=== PATIENT | male | born 1955 | race Caucasian/White ===

== ENCOUNTER 2025-04-02 09:47 | Outpatient (AMB) | payer MEDICARE, SELFPAY ==
--- OUTSIDE RECORDS SUMMARY | 2015-05-22 | XMS_ITS | Encounter Summary ---
Author Organization [facility] Address [address] [place] [address] Phone Care Team Providers Care Allied Health Instructor Name Role Phone Unavailable Primary Care Provider Unavailabl e Reason for Visit * MRI/CAT Scan - Closed Specialty Diagnoses / Procedures Referred By Alexandra del castillo Referred To Contact Procedures MRI Lower Extremity Outside (No Interpretation) Max Wren PA-C [address] [place] [address] Phone: tel: fax: mailto:[email or web address] Referral ID Status Reason Start Date Expiration Date Visits Re quested Visits Authorized [id number] Closed 01/29/2017 01/29/2018 1 1 Encounter Details Date Type Department Care Team (Late st Contact Info) Description 05/22/2015 Hospital Encounter [facility] [address] [place] [address] Max Wren PA-C [address] [place] [address] [email or web address] Social History Tobacco Use Types Packs/Day Years [...] your housing situation today? I have julia robles 03/20/2025 How many times have you move [...] Author No Risk Indicated 03/20/2025 10:40 AM Ele Mason, KATHERINE * [place] Suicide Severity Rating Scale (Screener/Recent Self-Report) Question [...] Care Team (Late st Contact Info) Description 04/16/2025 10:40 AM EDT Telemedicine - audio only [facility] Spine Medicine [address] [place] [address] Nick Quinn MD 22 [facility], 2nd [place] [address] [email or web address] documented as of this encounter Procedures Procedure Name Priority Date/Time Associated Diagnosis Comments MRI LOWER EXTREMITY OUTSIDE (NO INTERPRETATION) Routine 05/22/2015 12:00 AM EDT documented in this encounter Results * MRI Lower Extremity Outside (No Interpretation) (05/22/2015 12:00 AM EDT) Narrative [facility] IMG INTERFACES - 01/29/2017 9:33 AM EDT This study is for PACS storage only and not for interpretation. us Max Wren PA-C IMG OUTSIDE IMAGING W/OUT IN TERPRETATION Final Result [facility] IMG INTERFACES documented in this encounter Visit Diagnoses Not on filedocumented in this encounter Additional Source Comments The information contained in this document represents components of the legal health record. It is not the complete legal health record.[facility]
--- OUTSIDE RECORDS SUMMARY | 2015-10-20 | XMS_ITS | Encounter Summary ---
Author Organization [facility] Address [address] [address] Phone Care Team Providers Care Delivery Mgr Name Role Phone Unavailable Primary Care Provider Unavailabl e Encounter Details Date Type Department Care Team (Late st Contact Info) Description 10/20/2015 Hospital Encounter [facility] [address] [place] [address] Max Wren, PANikolas [address] [place] [address] Social History Tobacco Use Types Packs/Day Years [...] 10:40 AM EDT Ele Boston RN * [place] Suicide Severity Rating Scale (Screener/Recent Self-Report) Question Answer Date of Assessment Author 1. Wish to be (Past 1 Month) No 025 10:40 AM EDT Ele Boston, KATHERINE 2. Non-Specific Active Suici edgard Thoughts (Past 1 Month) No 03/20/2025 10:40 AM EDT Ele Boston, RN 6. Suicidal Behavior (Lifetime) No 10:40 AM EDT Ele Boston, RN documented as of this encounter Plan of Treatment Upcoming Encounters Date Type Department Care Team (Late st Contact Info) Description 04/16/2025 10:40 AM EDT Telemedicine - audio only [facility] Spine Medicine [address] [place] [address] Nick Quinn MD 22 [facility], 2nd [place] [address] [email or web address] documented as of this encounter Procedures Procedure Name Priority Date/Time Associated Diagnosis Comments XR LOWER EXTREMITY OUTSIDE (NO INTERPRETATION) Routine 10/20/2015 12:00 AM EDT documented in this encounter Results * XR Lower Extremity Outside (No Interpretation) (10/20/2015 12:00 AM EDT) Narrative [facility] INTERFACES - 01/29/2017 9:28 AM EDT This study is for PACS storage only and not for interpretation. us Max Wren PA-C IMG OUTSIDE IMAGING W/OUT IN TERPRETATION Final Result [facility] INTERFACES documented in this encounter Visit Diagnoses Not on filedocumented in this encounter Additional Source Comments The information contained in this document represents components of the legal health record. It is not the complete legal health record.[facility]
--- OUTSIDE RECORDS SUMMARY | 2025-03-10 09:10 | XMS_ITS ---
Author Organization [facility] Address [address] [place] [address] Care Team Providers Care Historical Site Guide Name Role Phone Lazaro Amor Unavailable [phone] Lazaro Amor Do Unavailable Unavailable REASON FOR VISIT F/U MRI LEFT KNEE JPB/RK Encounters Encounter Location Date Provider Diagnosis [facility] [address] [place] [address] 03/10/2025 Lazaro Amor Plan Of Treatment No Information Progress Notes * REYESELISADINORAHDOB:1955 (69 yo M)Acc No.[id number]:03/10/2025 Patient: TIANNA BUI Provider: Ananya Amor DO :1955 A ge:69 Y S ex:Male Date:03/10/2025 Address:[address] [place], [place] [id number] Subjective: * Chief Complaints: * 1 . F/U MRI LEFT KNEE JPB/RK. * Medical History: Objective: * Vitals: Assessment: Plan: * Treatment: * Billing Information: * Visit Code: * Procedure Codes: * Electronic signature of Lazaro Amor DO on 04/02/2025 at 10:33 AM EDT Sign off status: Pending * Provider: Ananay Amor DO Date: 03/10/2025 Generated for Chinai ng/Fadarong/eTransmitting on: 04/02/2025 10:33 AM EDT
--- OUTSIDE RECORDS SUMMARY | 2025-03-25 14:00 | XMS_ITS | Encounter Summary ---
Author Organization [facility] Address [address] [facility] [address] [place] [address] Phone Care Team Providers Care Electric Solderer Name Role Phone Sasha Mejia Primary Care Provider [phone] Encounter Details Date Type Department Care Team (Latest Contact Info) Description 03/25/2025 2:00 PM EDT Procedure visit [facility] Spine Medicine [address] [address] Annelise Quinn MD [address] [facility], 2nd [place] [address] [email or web address] Lumbar radiculitis (Primary Dx) Social History Tobacco [...] 10:40 AM EDT Telemedicine - audio only [facility] Spine Medicine [address] [place] [address] Annelise Quinn MD [address] [place] [address], 2nd [place] [address] [email or web address] documented as of this encounter Visit Diagnoses [...] mL documented in this encounter Care Teams Electric Solderer Relationship Specialty Start Date End Date Sasha Mejia PA [address] [place] [address] PCP - General Physician Data Designer 03/20/25 documented as of this encounter Additional Source Comments The information contained in this document represents components of the legal health record. It is not the complete legal health record.[facility]
[2025-04-02 10:11] VITALS: BMI 34.0
--- NOTE | 2025-04-02 10:11 | HO.SPINEOV ---
Vital Signs 04/02/25 10:11 Height 5 ft 9 in Weight 230 lb BMI 34.0 Intake Visit Reasons: LBP Intake Note: Mr. Hall is here today c/o low back pain making it difficult to walk. Cable Stretcher And Tester Required: No Allergies codeine Allergy (Severe, Verified 04/02/25 10:12) Drowsy Physical Exam Vital Signs: BMI result Body Mass Index 34.0 Assessment & Plan Assessment & Plan (1) Lumbar disc herniation: Code(s): M51.26 - Other intervertebral disc displacement, lumbar region Category: Medical Plan Dear Dr Quinn, Thank you for referring Mr Hall to our office today. He is a very nice 69-year-old gentleman who reports history of back issues on and off over the years, who over the last 4 weeks has had a severe left leg pain with weakness of his left leg. The pain started after he was tearing apart some board done at [employer]. Since that time he has basically been incapacitated. As I understand it you attempted an injection at the L4-5 area after an MRI showed disc herniation and as he describes it it, sounds like it had to be aborted secondary to anatomical issues. He was on steroids, anti-inflammatories as well as oxycodone and muscle relaxers. The only thing that really helps him his oxycodone. He is here today to see if there is any surgical intervention we can do to help him. PMH: He is a diabetic but his A1c is always around 6, history of a torn meniscus, remote history of encephalitis, low testosterone, rosacea, he has never had surgery. Denies any history of heart attacks, strokes, high blood pressure, renal or liver disease, heart attacks, bleeding disorders, blood clots, cancer or infection Social hx: Does not smoke, drink use any recreational drugs Medications: Trulicity, metformin, verapamil, Zetia, Flomax, tadalafil and testosterone supplement Allergies: None Physical exam: Awake alert oriented, very uncomfortable, has a hard time standing up walking, has an antalgic gait, he is using a walker because he can not support his weight. Straight leg raise positive at 15 degrees. Dorsiflexion weakness rated as 4/5, rest of his strength is full. Reflexes diminished at the patella and the Achilles. Imaging review: Lumbar MRI done at [facility] just a few weeks ago shows multilevel degenerative disc disease but there is a large herniated disc fragment at L4-5 on the left which is tracked up behind the vertebral body and to some degree near the foramen. Impression: 69-year-old male with an acute herniated disc going on now for 4 weeks who is presenting with severe pain, inability to ambulate, foot weakness. He has a large disc fragment at L4-5 on the left. Case reviewed with Dr. Comer. Because of the weakness and the inability to walk, we are going to book him for urgent left L4-5 microdiskectomy. We have tentatively set a surgical date for April 15. He understands the success rate is 90%. We also talked about lifting restrictions afterwards to avoid reherniation. He will stop his Trulicity and his aspirin 1 week before surgery. The patient was given risk and benefits of surgery including but not limited to infection, hematoma, nerve injury, durotomy, weakness, bowel/bladder injury, persistent pain,[ ]. We also discussed the option to continue with conservative treatment and patient wishes to proceed with surgery. All questions were answered to the best of our ability. If there is anything about this patients medical history that we have overlooked or concerns you have about us proceeding with surgery we would appreciate any input you can offer Thank you for allowing us to care for your patient. The total time spent with this visit with this patient was[] minutes reviewing history, physical exam, [] imaging review, and implementation of treatment plan or further diagnostic testing Kal Comer MD,PhD [facility] Coding Level of Care Code New Pt Level 4 (05024) Diagnoses Lumbar disc herniation M51.26
--- OUTSIDE RECORDS SUMMARY | 2025-04-02 10:32 | XMS_ITS | Encounter Summary ---
Author Organization [facility] Address [address] [place] [address] Phone Care Team Providers Care Data Reduction Technician Name Role Phone Yissel Wells Primary Care Provider Sasha Mejia Primary Care Provider [phone] Reason for Visit * Reason Onset Date Comments Establish Care 03/19/2025 Encounter Details Date Type Department Care Team (Late st Contact Info) Description 03/19/2025 Telephone [employer] [facility] Spine Medicine [address] [place] [address] Yissel Wells PA [address] [place] [address] [email or web address] Establish Care Social History Tobacco Use Types Packs/Day Years [...] 03/20/2025 10:40 AM Ele Mason, KATHERINE * [place] Suicide Severity Rating Scale (Screener/Recent Self-Report) Question Answer Date of Assessment Author 1. Wish to be (Past 1 Month) No 025 10:40 AM Ele Mason, RN 2. Non-Specific Active Suici edgard Thoughts (Past 1 Month) No 03/20/2025 10:40 AM Ele Mason, RN 6. Suicidal Behavior (Lifetime) No 10:40 AM EDT Ele Boston RN documented as of this encounter Progress Notes * MitchellKal adamson - 03/19/2025 3:43 PM EDT Pt called in to confirm receipt of the faxed referral Central Support Burner Machine Operator (Please do not reply to this user; this inbox is not monitored.) Thank you. * MitchellKal - 03/19/2025 9:49 AM EDT Pt called in, said a referral was faxed from [employer] this morning. Please contact and advise claudia appt. Central Support Burner Machine Operator (Please do not reply to this user; this inbox is not monitored.) Thank you. documented in this encounter Plan of Treatment Upcoming Encounters Date Type Department Care Team (Late st Contact Info) Description 04/16/2025 10:40 AM EDT Telemedicine - audio only [facility] Spine Medicine [address] [place] [address] Nick Quinn MD [address] [place] [address], [address] [place] [address] [email or web address] documented as of this encounter Visit Diagnoses Not on filedocumented in this encounter Care Teams Data Reduction Technician Relationship Specialty Start Date End Date Yissel Wells PA [address] [place] [address] [email or web address] PCP - General Physician Commissioned Police Officer 10/26/22 03/19/25 Sasha Mejia PA [address] [place] [id number] PCP - General Physician Commissioned Police Officer 03/20/25 documented as of this encounter Additional Source Comments The information contained in this document represents components of the legal health record. It is not the complete legal health record.[facility]
--- OUTSIDE RECORDS SUMMARY | 2025-04-02 10:32 | XMS_ITS | Encounter Summary ---
Author Organization [facility] Address [address] [place] [address] Phone Care Team Providers Care Chain Testing Machine Operator Name Role Phone Segundo Albright MD Primary Care Provider Yissel Wells Primary Care Provider [phone] Sasha Mejia Primary Care Provider [phone] Reason for Referral * Physical Therapy (Routine) - Closed Specialty Diagnoses / Procedures Referred By Alexandra del castillo Referred To Contact Physical Therapy Diagnoses Encounter for rehabilitation Low Back Pain Procedures Evaluate & Treat Karl Fowler DO Phone: tel: fax: [email or web address] [address] [place] [address] Phone: tel: Referral ID Status Reason Start Date Expiration Date Visits Re quested Visits Authorized [id number] Closed 08/14/2018 08/04/2019 99 99 Encounter Details Date Type Department Care Team (Latest Contact Info) Description 08/14/2018 Transcribe Orders [facility] [address] [place] [address] Karl Fowler DO [address] [place] [address] [email or web address] Encounter for rehabilitation (Primary Dx) Social History Tobacco Use Types Packs/Day Years Used Date Smoking Tobacco: Never Assessed Sex and Gender Information Value Date Recorded Sex Assigned at Not on file Legal Sex Male 11:19 AM EDT Gender Identity Not on file Sexual Orientation Not on file documented as of this encounter Plan of Treatment Upcoming Encounters Date Type Department Care Team (Late st Contact Info) Description 04/16/2025 10:40 AM EDT Telemedicine - audio only [facility] Spine Medicine [address] [place] [address] Nick Quinn MD [address] [facility], 2nd [place] [address] [email or web address] documented as of this encounter Procedures Procedure Name Priority Date/Time Associated Diagnosis Comments AMB REFERRAL TO [facility] Routine 09/12/2018 10:08 AM EST Encounter for rehabilitation documented in this encounter Results * Ambulatory referral to [facility] Physical Therapy (09/12/2018 10:08 AM EST) us Karl Fowler DO AMB [facility] REFERRALS Final Resu lt documented in this encounter Visit Diagnoses Diagnosis Encounter for rehabilitation- Primary documented in this encounter Care Teams Chain Testing Machine Operator Relationship Specialty Start Date End Date Segundo Albright MD [address] [place] [address] [email or web address] PCP - General 06/11/17 10/25/22 Yissel Wells PA [address] [place] [address] [email or web address] PCP - General Physician Underground Miner 10/26/22 03/19/25 Sasha Mejia PA [address] [place] [address] PCP - General Physician Underground Miner 03/20/25 documented as of this encounter Additional Source Comments The information contained in this document represents components of the legal health record. It is not the complete legal health record.[facility]
--- OUTSIDE RECORDS SUMMARY | 2025-04-02 10:32 | XMS_ITS | Encounter Summary ---
Author Organization [facility] Address [address] [place] [address] Phone Care Team Providers Care Electronics Production Supervisor Name Role Phone Segundo Albright MD Primary Care Provider Yissel Wells Primary Care Provider [phone] Sasha Mejia Primary Care Provider [phone] Reason for Referral * MRI/CAT Scan - Closed Specialty Diagnoses / Procedures Referred By Contac t Referred To Contact Radiology Diagnoses Lumbar radiculopathy Procedures MRI Lumbar Spine Karl Fowler DO Phone: tel: fax: [email or web address] Referral ID Status Reason Start Date Expiration Date Visits Re quested Visits Authorized [id number] Closed 08/18/2020 10/17/2020 1 1 Encounter Details Date Type Department Care Team (Latest Contact Info) Description 08/18/2020 Ancillary Orders Virtual Department [address] [place] [address] Karl Fowler DO [address] [place] [address] [email or web address] Lumbar radiculopathy Social History Tobacco Use Types Packs/Day Years [...] 10:40 AM EDT Telemedicine - audio only [facility] Spine Medicine [address] [place] [address] Nick Quinn MD [address] [facility], [address]nd [place] [address] [email or web address] documented as of this encounter Results * MRI LUMBAR SPINE (NEURO) WITH AND WITHOUT CONTRAST (08/25/2020 12:07 PM EST) Anatomical Region Laterality Modality L-spine Magnetic Resonan ce 08/25/2020 12:3 8 PM EST Impressions 08/25/2020 1:46 PM EST 1. Stable tiny right paramedian radial annular tear at T12-L1 area 2. Stable or diminishing soft tissue structure in the peripheral left L2-3 exit foramen, possibly an osteophyte and vein rather than disc fragment. If clinically essential, CT may be useful for further evaluation to assess any bony component. 3. Slight increase in size of right-eccentric disc bulge at L3-4 but without focal protrusion or root compression. 4. New small right proximal foraminal focal disc protrusion at L5-S1 without root compression. POS [id number] Narrative 08/25/2020 1:46 PM EST TECHNIQUE: 1.5 Janine scanner. Imaging without and with IV contrast. Multiple comparisons, most recently 05/29/2017. FINDINGS: A few mm of retrolisthesis of L1 on L2 is unchanged. The other vertebral bodies are well-aligned. No worrisome marrow abnormalities. Normal conus position and appearance. T11-12: No disc bulge, protrusion or stenosis. T12-L1: Tiny right paramedian radial annular tear unchanged. No new disc protrusion. No stenosis. L1-2: No significant disc bulge or protrusion nor stenosis. L2-3: The previously noted left lateral foraminal masslike structure is still present but slightly smaller, if changed at all. It has developed slightly increased signal on both T1 and T2. The medial extent of it appears to enhance very slightly on the T1 fat saturation axial sequence (series 10, image 10). I suspect this is a combination of endplate osteophyte and vessel but it could still be partially a disc fragment. In either event there does not appear to be a worrisome soft tissue mass and if anything the degree of mass effect on the peripheral nerve root is decreasing. No other disc protrusion nor stenosis at this level. L3-4: Slight increase in broad right-eccentric disc bulge since 2017 but no focal disc protrusion. Stable mild central and moderate bilateral foraminal stenosis. L4-5: The disc is narrowed slightly since 2017 but with minimal broad bulge and no focal protrusion nor significant stenosis. L5-S1: A small right proximal foraminal focal disc protrusion has developed but it does not obviously produce direct root compression. No significant stenosis. Procedure Note Aaron Neville MD - 08/25/2020 TECHNIQUE: 1.5 Janine scanner. Imaging without and with IV contrast. Multiple comparisons, most recently 05/29/2017. FINDINGS: A few mm of retrolisthesis of L1 on L2 is unchanged. The other vertebralbodies are well-aligned. No worrisome marrow abnormalities. Normal conus position and appearance. T11-12: No disc bulge, protrusion or stenosis. T12-L1: Tiny right paramedian radial annular tear unchanged. No new discprotrusion. No stenosis. L1-2: No significant disc bulge or protrusion nor stenosis. L2-3: The previously noted left lateral foraminal masslike structure isstill present but slightly smaller, if changed at all. It has developedslightly increased signal on both T1 and T2. The medial extent of itappears to enhance very slightly on the T1 fat saturation axial sequence(series 10, image 10). I suspect this is a combination of endplateosteophyte and vessel but it could still be partially a disc fragment. Ineither event there does not appear to be a worrisome soft tissue mass andif anything the degree of mass effect on the peripheral nerve root isdecreasing. No other disc protrusion nor stenosis at this level. L3-4: Slight increase in broad right-eccentric disc bulge since 2017 butno focal disc protrusion. Stable mild central and moderate bilateralforaminal stenosis. L4-5: The disc is narrowed slightly since 2017 but with minimal broadbulge and no focal protrusion nor significant stenosis. L5-S1: A small right proximal foraminal focal disc protrusion hasdeveloped but it does not obviously produce direct root compression. Nosignificant stenosis. IMPRESSION: 1. Stable tiny right paramedian radial annular tear at T12-L1 area 2. Stable or diminishing soft tissue structure in the peripheral left L2-3exit foramen, possibly an osteophyte and vein rather than disc fragment.If clinically essential, CT may be useful for further evaluation to assessany bony component. 3. Slight increase in size of right-eccentric disc bulge at L3-4 butwithout focal protrusion or root compression. 4. New small right proximal foraminal focal disc protrusion at L5-I2gftiplc root compression. POS [id number] Karl Fowler DO IMG MR XSPECIALTY Final Resu lt documented in this encounter Visit Diagnoses Diagnosis Lumbar radiculopathy Thoracic or lumbosacral neuritis or radiculitis, unspecified Lumbar radiculopathy Thoracic or lumbosacral neuritis or radiculitis, unspecified documented in this encounter Care Teams Electronics Production Supervisor Relationship Specialty Start Date End Date Segundo Albright MD [address] [place] [address] [email or web address] [email or web address] - General 06/11/17 10/25/22 Yissel Wells PA [address] [place] [address] [email or web address] PCP - General Physician Rubber Stamp Die Inspector 10/26/22 03/19/25 Sasha Mejia PA [address] [place] [address] PCP - General Physician Rubber Stamp Die Inspector 03/20/25 documented as of this encounter Additional Source Comments The information contained in this document represents components of the legal health record. It is not the complete legal health record.[facility]
--- OUTSIDE RECORDS SUMMARY | 2025-04-02 10:32 | XMS_ITS | Encounter Summary ---
Author Organization Located Within [facility] Address [address] [place] [address] Phone Care Team Providers Care Geriatric Nurse Assistant Name Role Phone Segundo Albright MD Primary Care Provider [phone] Yissel Wells Primary Care Provider Sasha Mejia Primary Care Provider [phone] Encounter Details Date Type Department Care Team (Latest Contact Info) Description 09/06/2021 Transcribe Orders [facility] 29 [place] [address] Yissel Wells PA [address] [place] [address] [email or web address] Type 2 diabetes mellitus without complication, unspecified whether rn long term care insulin use (Primary Dx); Elevated liver function tests Social History Tobacco Use Types Packs/Day Years [...] 10:40 AM EDT Telemedicine - audio only [facility] Spine Medicine [address] [place] [address] Nick Quinn MD 22 [facility], 2nd [place] [address] documented as of this encounter Results * (ABNORMAL) Lipid panel (09/07/2021 10:04 AM EST) HDL 43 mg/dL [facility] Comment: Interpretation <40 mg/dL: Low HDL cholesterol (major risk factor for CHD) Greater than or equal to 60 mg/dL: High HDL cholesterol ( negative risk factor for CHD) HDL - cholesterol is affected by a number of factors, e.g. smoking, excerise, hormones, sex and age. CHOLESTEROL 245(H) 0 - 240 mg/dL [facility] TRIGLYCERIDES 230(H) 30 - 160 mg/dL [facility] LDL 156(H) 50 - 129 mg/dL [facility] Comment: LDL levels in terms of risk for coronary heart disease: <100 mg/dL: Optimal 100-129 mg/dL: Near or above optimal 130-159 mg/dL: Borderline high 160-189 mg/dL: High >190 mg/dL: Very High CARDIAC RISK RATIO 5.7(H) 3.4 - 5.0 C [facility] Blood 09/07/2021 10:0 4 AM EST 09/07/2021 10:12 AM EST Yissel CRAIG LAB BLOOD ORDERABLES Final R [facility] Performing Organization Address City/[facility] Co de Phone Number [address] [address] * (ABNORMAL) Hemoglobin A1c (09/07/2021 10:04 AM EST) HEMOGLOBIN A1C 6.0(H) 4.3 - 5.8 % [facility] Blood 09/07/2021 10:0 4 AM EST 09/07/2021 10:13 AM EST Yissel CRAIG LAB BLOOD ORDERABLES Final R esult Performing Organization Address City/[facility]/ZIP Co de Phone Number [address] [address] * (ABNORMAL) Comprehensive metabolic panel (09/07/2021 10:04 AM EST) SODIUM 135 133 - 146 mmol/L [facility] POTASSIUM 4.5 3.3 - 5.1 mmol/L [facility] CHLORIDE 101 96 - 108 mmol/L [facility] CO2 21 21 - 35 mmol/L [facility] BUN 16 6 - 19 mg/dL [facility] CREATININE 1.00 0.5 - 1.5 mg/dL [facility] GLUCOSE 123(H) 70 - 99 mg/dL [facility] ALBUMIN 4.7 3.9 - 4.8 g/dL [facility] TOTAL PROTEIN 7.0 6.5 - 8.0 g/dL [facility] CALCIUM 9.6 8.4 - 10.3 mg/dL [facility] ALKALINE PHOSPHATASE 57 39 - 117 U/L [facility] TOTAL BILIRUBIN 0.5 0.0 - 1.2 mg/dL [facility] AST 28 0 - 37 U/L [facility] ALT 25 0 - 40 U/L [facility] GLOBULIN 2.3 1 - 4.8 g/dL [facility] EGFR 85 >59 mL/min/1.7 3m2 [facility] Comment:Estimated glomerular filtration rate calculated using the CKD-EPI refit equation. ANION GAP 18 10 - 20 mmol/L [facility] Blood 09/07/2021 10:0 4 AM EST 09/07/2021 10:12 AM EST us Yissel CRAIG LAB BLOOD ORDERABLES Final R esult [facility] [address] [place] [address] * (ABNORMAL) Microalbumin/creatinine ratio, random urine (09/07/2021 10:04 AM EST) URINE MICROALBUMIN 14.2(H) 0 - 2.3 mg/dL [facility] URINE CREATININE 515 mg/dL AUTOMATIC I THREADING MACHINE [facility] MICROALB/CRE RATIO 27.6(H) 0 - 20 mg/g Cre [facility] Urine (Urine) 09/07/2021 10: 04 AM EST 09/07/2021 10:17 AM EST Yissel CRAIG URINE ORDERABLES Final Resul t Performing Organization Address [facility]/ZIP Co de Phone Number [facility] [address] [place] [address] * PSA, free and total (09/07/2021 10:04 AM EST) PSA, TOTAL 0.60 <=4.5 ng/mL [facility] FREE PSA 0.3 ng/mL [facility] LAB MED/[facility] FREE/TOT PSA RATIO SEE NOTE ratio [facility] Comment: (NOTE) Ratio not calculated because clinical usefulness is not defined except in range of total PSA 4.0-10.0 ng/mL. ADDITIONAL INFORMATION The testing method is an electrochemiluminescence assay manufactured by [employer] and performed on the Modular or Danny system. Values obtained with different assay methods or kits may be different and cannot be used interchangeably. Test results cannot be interpreted as absolute evidence for the presence or absence of malignant disease. Blood 09/07/2021 10:0 4 AM EST 09/07/2021 10:12 AM EST Yissel CRAIG LAB BLOOD ORDERABLES Final R esult Performing Organization Address City/[facility]/ZIP Co de Phone Number [facility] LAB MED/PATH [facility] [address] [place] [address] * CBC (09/07/2021 10:04 AM EST) WBC 6.99 4.00 - 11.00 K/uL [facility] RBC 5.00 3.90 - 5.69 M/uL [facility] HGB 15.5 12.4 - 17.3 g/dL [facility] HCT 43.7 37.0 - 51.0 % [facility] PLT 224 140 - 430 K/uL [facility] MCV 87.4 78.0 - 97.0 fL [facility] MCH 31.0 25.0 - 33.0 pg [facility] MCHC 35.5 32.0 - 36.0 g/dL [facility] RDW 12.9 11.0 - 15.0 % [facility] MPV 10.2 8.4 - 12.8 fl [facility] NRBC 0.00 0 /100 WBCs [facility] ABSOLUTE NRBC 0.00 0 K/uL [facility] Blood 09/07/2021 10:0 4 AM EST 09/07/2021 10:12 AM EST us Yissel CRAIG LAB BLOOD ORDERABLES Final R esult Performing Organization Address City/State/[place] Co de Phone Number [facility] [address] [place] [address] documented in this encounter Visit Diagnoses Diagnosis Type 2 diabetes mellitus without complication, unspecified whether rn long term care insulin use- Primary Elevated liver function tests Other abnormal blood chemistry documented in this encounter Care Teams Geriatric Nurse Assistant Relationship Specialty Start Date End Date Segundo Albright MD [address] [place] [phone] [email or web address] PCP - General 06/11/17 10/25/22 Yissel Wells PA [address] [place] [phone] [email or web address] PCP - General Physician Water Control Station Engineer 10/26/22 03/19/25 Sasha Mejia PA [address] [place] [id number] PCP - General Physician Water Control Station Engineer 03/20/25 documented as of this encounter Additional Source Comments The information contained in this document represents components of the legal health record. It is not the complete legal health record.Located Within [facility]
--- OUTSIDE RECORDS SUMMARY | 2025-04-02 10:32 | XMS_ITS | Encounter Summary ---
Author Organization [facility] Address [address] [place] [address] Phone Care Team Providers Care Customer Service Technician Name Role Phone Yissel Wells Primary Care Provider Sasha Mejia Primary Care Provider [phone] Encounter Details Date Type Department Care Team (Late st Contact Info) Description 01/14/2025 Transcribe Orders [facility] Specimen Processing [address] [place] [address] Elizabeth Roblero MD [address] [place] [address] Impetigo (Primary Dx) Social History Tobacco Use Types Packs/Day Years Used Date Smoking Tobacco: Never Smokeless Tobacco: Never Alcohol Use Standard Drinks/Week Comments Yes 0 (1 standard drink = 0.6 oz pur e alcohol) 1 months Education Answer Date Recorded Are you interested in more education? Not on sydnie e 11/30/2022 Are you concerned about learning? Not on file 11/30/2022 No 11/30/2022 No 11/30/2022 Digital Access Answer Date Recorded No 12/31/2022 No 12/31/2022 Reliable internet access at home? Not on file 12/31/2022 Device with a working camera? Not on file Sex and Gender Information Value Date Recorded Sex Assigned at Not on file Legal Sex Male 11:19 AM EDT Gender Identity Not on file Sexual Orientation Not on file documented as of this encounter Plan of Treatment Upcoming Encounters Date Type Department Care Team (Late st Contact Info) Description 04/16/2025 10:40 AM EDT Telemedicine - audio only [facility] Spine Medicine [address] [place] [address] Nick Quinn MD 22 [facility], 2nd [place] [address] [email or web address] documented as of this encounter Results * Wound culture/smear (01/14/2025 3:52 PM EDT) Special Requests None 01/14/2025 3:52 PM EDT [facility] GRAM STAIN NO ORGANISMS SEEN 01/15/2025 8:14 AM EDT [facility] Wound Culture/Smear NO GROWTH 48HRS 01/16/2025 10:44 AM EDT [facility] Other (Nasal) 01/14/2025 3:5 2 PM EDT 01/14/2025 3:53 PM EDT Comment:LEFT NASAL ALAR GROO VE us Elizabeth Roblero MD MICROBIOLOGY - GENERAL SHAUNNA FERNANDEZ Final Result [facility] [address] [place] [address] documented in this encounter Visit Diagnoses Diagnosis Impetigo- Primary documented in this encounter Care Teams Customer Service Technician Relationship Specialty Start Date End Date Yissel Wells PA [address] [place] [address] [email or web address] PCP - General Physician Reception Specialist 10/26/22 03/19/25 Sasha Mejia PA [address] [place] [address] PCP - General Physician Reception Specialist 03/20/25 documented as of this encounter Additional Source Comments The information contained in this document represents components of the legal health record. It is not the complete legal health record.[facility]
--- OUTSIDE RECORDS SUMMARY | 2025-04-02 10:32 | XMS_ITS | Encounter Summary ---
Author Organization [facility] Address [address] [place] [address] Phone Care Team Providers Care Belt Maker Name Role Phone Segundo Albright MD Primary Care Provider Yissel Wells Primary Care Provider [phone] Sasha Mejia Primary Care Provider Encounter Details Date Type Department Care Team (Late st Contact Info) Description 03/14/2018 Transcribe Orders [facility] [address] [place] [address] Esme Lopez NP [address] [place] [address] [email or web address] Diabetes mellitus with no complication (Primary Dx) Social History Tobacco Use Types [...] 10:40 AM EDT Telemedicine - audio only [facility] [address] [place] [address] Nick Quinn MD 22 [facility], 2nd [place] [address] documented as of this encounter Visit Diagnoses Diagnosis Diabetes mellitus with no complication- Primary Type II or unspecified type diabetes mellitus without mention of complication, not stated as uncontrolled documented in this encounter Care Teams Belt Maker Relationship Specialty Start Date End Date Segundo Albright MD [address] [place] [address] [email or web address] PCP - General 06/11/17 10/25/22 Yissel Wells PA [address] [place] [phone] [email or web address] PCP - General Physician Director Business Management 10/26/22 03/19/25 Sasha Mejia PA [address] [place] [phone] PCP - General Physician Director Business Management 03/20/25 documented as of this encounter Additional Source Comments The information contained in this document represents components of the legal health record. It is not the complete legal health record.[facility]
--- OUTSIDE RECORDS SUMMARY | 2025-04-02 10:32 | XMS_ITS | Encounter Summary ---
Author Organization [facility] Address [address] [place] [address] Phone Care Team Providers Care Family Program Specialist Name Role Phone Segundo Albright MD Primary Care Provider Yissel Wells Primary Care Provider Sasha Mejia Primary Care Provider Encounter Details Date Type Department Care Team (Late st Contact Info) Description 09/06/2021 Transcribe Orders [facility] LABORATORY [address] [place] [address] Segundo Albright MD [address] [place] [phone] [email or web address] Social History Tobacco Use Types Packs/Day Years [...] 10:40 AM EDT Telemedicine - audio only [facility] Spine Medicine [address] [place] [address] Nick Quinn MD 22 [facility], 2nd [place] [address] documented as of this encounter Visit Diagnoses Not on filedocumented in this encounter Care Teams Family Program Specialist Relationship Specialty Start Date End Date Segundo Albright MD [address] [place] [address] [email or web address] PCP - General 06/11/17 10/25/22 Yissel Wells PA [address] [place] [phone] [email or web address] PCP - General Physician Apartment Rental Clerk 10/26/22 03/19/25 Sasha Mejia PA [address] [place] [id number] PCP - General Physician Apartment Rental Clerk 03/20/25 documented as of this encounter Additional Source Comments The information contained in this document represents components of the legal health record. It is not the complete legal health record.[facility]
--- OUTSIDE RECORDS SUMMARY | 2025-04-02 10:32 | XMS_ITS | Encounter Summary ---
Author Organization [facility] Address [address] [place] [address] [place] [address] Phone Care Team Providers Care Machine Heel Sprayer Name Role Phone Segundo Albright MD Primary Care Provider Yissel Wells Primary Care Provider [phone] Sasha Mejia Primary Care Provider Encounter Details Date Type Department Care Team (Latest Contact Info) Description 09/06/2021 Transcribe Orders [facility] LABORATORY [address] [place] [address] Vanna Alvarado, PA-C [address] [place] [address], [address] [place] [address] [email or web address] Testicular hypofunction (Primary Dx) Social History Tobacco Use Types [...] AM EDT Telemedicine - audio only [facility] Spine Medicine [address] [place] [address] Nick Quinn MD 22 [facility], 2nd [place] [address] documented as of this encounter Results * (ABNORMAL) Testosterone, total and free (09/07/2021 10:04 AM EST) FREE TESTOSTERONE 45.8(H) 3.67 - 13.9 ng/dL [facility] Comment: (NOTE) ADDITIONAL INFORMATION Testing performed by [facility]. This test was developed and its performance characteristics determined by [facility] in a manner consistent with CLIA requirements. This test has not been cleared or approved by the U.S. Food and Drug Administration. TESTOSTERONE, TOTAL 1,090(H) 240 - 950 ng/dL [facility] Comment: (NOTE) ADDITIONAL INFORMATION Testing performed by Liquid Chromatography-Tandem Mass Spectrometry (LC-MS/MS). This test was developed and its performance characteristics determined by [facility] in a manner consistent with CLIA requirements. This test has not been cleared or approved by the U.S. Food and Drug Administration. Blood 09/07/2021 10:0 4 AM EST 09/07/2021 10:12 AM EST us Vanna Alvarado PA-C LAB BLOOD ORDERABLES Final Res ult [facility] [address] [place] [address] documented in this encounter Visit Diagnoses Diagnosis Testicular hypofunction- Primary Other testicular hypofunction documented in this encounter Care Teams Machine Heel Sprayer Relationship Specialty Start Date End Date Segundo Albright MD [address] [place] [address] [email or web address] PCP - General 06/11/17 10/25/22 Yissel Wells PA [address] [place] [address] [email or web address] PCP - General Physician Milk Pickup Truck Driver 10/26/22 03/19/25 Sasha Mejia PA [address] [place] [address] PCP - General Physician Milk Pickup Truck Driver 03/20/25 documented as of this encounter Additional Source Comments The information contained in this document represents components of the legal health record. It is not the complete legal health record.[facility]
--- OUTSIDE RECORDS SUMMARY | 2025-04-02 10:32 | XMS_ITS | Encounter Summary ---
Author Organization [facility] Address [address] [place] [address] Phone Care Team Providers Care Auditor Medical Claims Name Role Phone Segundo Albright MD Primary Care Provider Yissel Wells Primary Care Provider [phone] Sasha Mejia Primary Care Provider [phone] Encounter Details Date Type Department Care Team (Late st Contact Info) Description 08/18/2020 Procedure Pass [address] [place] [address] Social History Tobacco Use Types Packs/Day Years [...] 10:40 AM EDT Telemedicine - audio only [facility] Medical [facility] Spine Medicine [address] [place] [address] Nick Quinn MD 22 [facility], 2nd [place] [address] [email or web address] documented as of this encounter Visit Diagnoses Not on filedocumented in this encounter Care Teams Auditor Medical Claims Relationship Specialty Start Date End Date Segundo Albright MD [address] [place] [phone] [email or web address] PCP - General 06/11/17 10/25/22 Yissel Wells PA [address] [place] [phone] [email or web address] PCP - General Physician Broodmare Foreman 10/26/22 03/19/25 Sasha Mejia PA [address] [place] [phone] PCP - General Physician Broodmare Foreman 03/20/25 documented as of this encounter Additional Source Comments The information contained in this document represents components of the legal health record. It is not the complete legal health record.[facility]
--- OUTSIDE RECORDS SUMMARY | 2025-04-02 10:33 | XMS_ITS | Encounter Summary ---
Author Organization [facility] Address [address] [facility] [address] [place] [address] Phone Care Team Providers Care Vasc Tech Name Role Phone Segundo Albright MD Primary Care Provider Yissel Wells Primary Care Provider Sasha Mejia Primary Care Provider Encounter Details Date Type Department Care Team (Latest Contact Info) Description 04/08/2019 Transcribe Orders [facility] LABORATORY [address] [place] [address] Segundo Albright MD [address] [place] [phone] [email or web address] Diabetes mellitus with no complication (Primary Dx) [...] 10:40 AM EDT Telemedicine - audio only [facility] Spine Medicine [address] [place] [address] Nick Quinn MD 22 [facility], 2nd [place] [address] documented as of this encounter Results * Lipid panel (04/08/2019 8:44 AM EDT) HDL 50 mg/dL [facility] Comment: Interpretation <40 mg/dL: Low HDL cholesterol (major risk factor for CHD) Greater than or equal to 60 mg/dL: High HDL cholesterol ( negative risk factor for CHD) HDL - cholesterol is affected by a number of factors, e.g. smoking, excerise, hormones, sex and age. CHOLESTEROL 192 0 - 240 mg/dL [facility] TRIGLYCERIDES 153 30 - 160 mg/dL [facility] LDL 111 50 - 129 mg/dL [facility] Comment: LDL levels in terms of risk for coronary heart disease: <100 mg/dL: Optimal 100-129 mg/dL: Near or above optimal 130-159 mg/dL: Borderline high 160-189 mg/dL: High >190 mg/dL: Very High CARDIAC RISK RATIO 3.8 3.4 - 5.0 C [facility] Blood 04/08/2019 8:44 AM EDT 04/08/2019 8:55 AM EDT us Segundo Albright MD LAB BLOOD ORDERABLES Final Resu lt Performing Organization Address City/[facility] Co de Phone Number [address] [address] * (ABNORMAL) Hemoglobin A1c (04/08/2019 8:44 AM EDT) HEMOGLOBIN A1C 7.6(H) 4.3 - 5.8 % [facility] Blood 04/08/2019 8:44 AM EDT 04/08/2019 8:55 AM EDT Segundo Albright MD LAB BLOOD ORDERABLES Final Resu lt Performing Organization Address [facility]/ZIP Co de Phone Number [address] [address] * (ABNORMAL) Basic metabolic panel (04/08/2019 8:44 AM EDT) SODIUM 138 133 - 146 mmol/L [facility] CHLORIDE 101 96 - 108 mmol/L [facility] POTASSIUM 4.3 3.3 - 5.1 mmol/L [facility] CO2 26 21 - 35 mmol/L [facility] BUN 12 6 - 19 mg/dL [facility] CREATININE 0.90 0.5 - 1.5 mg/dL [facility] GLUCOSE 191(H) 70 - 99 mg/dL [facility] CALCIUM 9.4 8.4 - 10.3 mg/dL [facility] EGFR 92 >59 mL/min/1.7 3m2 [facility] Comment:If patient is black, multiply result by 1.159. Estimated glomerular filtration rate calculated using the CKD-EPI equation. ANION GAP 15 10 - 20 mmol/L [facility] Blood 04/08/2019 8:44 AM EDT 04/08/2019 8:55 AM EDT us Segundo Albright MD LAB BLOOD ORDERABLES Final Resu lt Performing Organization Address City/State/[facility] Co de Phone Number [facility] [address] [place] [address] documented in this encounter Visit Diagnoses Diagnosis Diabetes mellitus with no complication- Primary Type II or unspecified type diabetes mellitus without mention of complication, not stated as uncontrolled documented in this encounter Care Teams Vasc Tech Relationship Specialty Start Date End Date Segundo Albright MD [address] [place] [address] [email or web address] PCP - General 06/11/17 10/25/22 Yissel Wells PA [address] [place] [address] [email or web address] PCP - General Physician Occupational Therapist Aide 10/26/22 03/19/25 Sasha Mejia PA [address] [place] [address] PCP - General Physician Occupational Therapist Aide 8/16/25 documented as of this encounter Additional Source Comments The information contained in this document represents components of the legal health record. It is not the complete legal health record.[facility]
--- OUTSIDE RECORDS SUMMARY | 2025-04-02 10:33 | XMS_ITS | Clinical Summary ---
Author Organization Formerly [facility] Address [address] [place] [address] Phone Care Team Providers Care Mathematics Department Chair Name Role Phone Sasha Mejia Primary Care Provider [phone] Allergies Active Allergy Reactions Criticality Noted Date Comments Codeine Unknown Medium 06/15/2017 Pollen Extracts 12/09/2022 Medications atorvastatin (LIPITOR) 40 MG tablet Take 20 mg by mouth daily. Active azelaic acid (FINACEA) 15 % gel APPLY SMALL AMOUNT TO FACE ONCE A DAY Active TRULICITY 0.75 mg/0.5 mL subcutaneous injection INJECT 0.75 MG SUBCUTANEOULSY ONCE WEEKLY DX:E11.9 Active metFORMIN (GLUCOPHAGE-XR) 500 MG 24 hr tablet Take 1,000 mg by mouth daily. Active tadalafiL (CIALIS) 5 MG tablet Take 5 mg by mouth daily. Active tamsulosin (FLOMAX) 0.4 mg Cap every other day. Active testosterone (ANDROGEL) 20.25 mg/1.25 gram (1.62 %) transdermal gel pump 4 application. Active verapamiL (CALAN-SR) 240 MG CR tablet 480 mg. Active SUMAtriptan (IMITREX) 100 MG tablet TAKE 1 TABLET BY MOUTH NEEDED, DO NOT TAKE MORE THAN 2 TABLETS PER 24 HOURS Active ciprofloxacin-d exAMETHasone (CIPRODEX) otic suspension INSTILL 4 DROP INTO LEFT EAR TWICE A DAY DIRECTED X 14 DAYS 023 Active traMADoL (ULTRAM) 50 mg tablet Take 50 mg by mouth every 6 (six) hours as needed for pain (specific location in comments). Active cyclobenzaprine (FLEXERIL) 10 MG tablet Take 10 mg by mouth 3 (three) times a day as needed for muscle spasms. Active oxyCODONE HCl 10 mg TabIndications: Lumbar radiculitis Take 1 tablet (10 mg total) by mouth every 6 (six) hours as needed (severe pain). Partial fill ok 28 tablet 025 2024 Active methylPREDNISol one (MEDROL DOSEPACK) 4 mg tablet Take 6 tablets (24 mg total) by mouth daily for 1 day, THEN 5 tablets (20 mg total) daily for 1 day, THEN 4 tablets (16 mg total) daily for 1 day, THEN 3 tablets (12 mg total) daily for 1 day, THEN 2 tablets (8 mg total) daily for 1 day, THEN 1 tablet (4 mg total) daily for 1 day. follow package directions. 21 tablet 025 2024 Discontinued(R eorder) oxyCODONE 5 MG immediate release tablet Take 1 tablet (5 mg total) by mouth every 4 (four) hours as needed for pain (specific location in comments). 8 tablet 025 2024 Discontinued(R eorder) oxyCODONE 5 MG immediate release tablet Take 1 tablet (5 mg total) by mouth every 4 (four) hours as needed for pain (specific location in comments). 8 tablet 025 2024 Discontinued methylPREDNISol one (MEDROL DOSEPACK) 4 mg tablet Take 6 tablets (24 mg total) by mouth daily for 1 day, THEN 5 tablets (20 mg total) daily for 1 day, THEN 4 tablets (16 mg total) daily for 1 day, THEN 3 tablets (12 mg total) daily for 1 day, THEN 2 tablets (8 mg total) daily for 1 day, THEN 1 tablet (4 mg total) daily for 1 day. follow package directions. 21 tablet 025 2024 cephalexin (KEFLEX) 500 MG capsule Take 1 capsule (500 mg total) by mouth 4 (four) times a day for 5 days. 20 capsule 025 2024 oxyCODONE HCl 10 mg Tab Take 1 tablet (10 mg total) by mouth every 6 (six) hours as needed (severe pain). Partial fill ok 28 tablet 025 2024 Discontinued(R eorder) predniSONE (DELTASONE) 50 MG tablet Take 1 tablet (50 mg total) by mouth daily with breakfast for 6 days. 6 tablet 2024 Hospital, Clinic, or Other Facility Administered Medication Ordered Dose Route Frequency Start Date End Date Status dexAMETHasone (PF) (DECADRON) injection 20 mgIndications:Lumb ar radiculitis 20 mg See Adm Inst Once 03/25/2025 03/25/2025 Ended iohexoL (OMNIPAQUE-300) 300 mg iodine/mL solution 2 mLIndications:Lumb ar radiculitis 2 mL IAtc Once as needed 03/25/2025 03/25/2025 Ended Active Problems Problem Noted Date Diagnosed Date Blood glucose abnormal 10/29/2022 Neuroma 10/29/2022 Synovial cyst 10/29/2022 Tailor's bunion 10/29/2022 Encounters Date Type Department Care Team Description 04/01/2025 Telephone [facility] [address] [place] [address] [place] [id number] Cameron Wilson 03/26/2025 Transcribe Orders [facility] [address] [place] [phone] Jose Jama PA 03/26/2025 Orders Only [facility] Sp[facility] [address] [place] [address] [place] [address] Nick Quinn MD Lumbar radiculitis (Primary Dx) 03/25/2025 2:00 PM EDT Procedure visit [facility] [address] [address] Nick Quinn MD Lumbar radiculitis (Primary Dx) 03/25/2025 1:49 PM EDT - 03/25/2025 11:59 PM EDT Hospital Encounter [facility] [address] [place] [address] Nick Quinn MD Discharge Disposition: Home or Self Care 03/23/2025 1:00 PM EDT Office Visit [facility] [address] [place] [address] Nick Quinn MD Lumbar radiculitis (Primary Dx) 03/22/2025 Transcribe Orders [facility] Neu[facility] [address] [place] [address] Rachel Short MA Other chronic pain (Primary Dx) 03/22/2025 Telephone [facility] [address] [place] [address] [place] [address] Nick Quinn MD Appointment; Medication Management 03/20/2025 10:47 AM EDT - 03/20/2025 7:06 PM EDT Emergency [facility] [address] [place] [address] Isaak Pandey MD Discharge Disposition: Home or Self Care 03/20/2025 Procedure Pass [facility] [address] [place] [address] 03/19/2025 Telephone [facility] [address] [place] [address] Yissel Wells PA Establish Care 01/14/2025 3:44 PM EDT - 01/14/2025 11:59 PM EDT Hospital Encounter [facility] [address] [place] [address] Elizabeth Roblero MD Discharge Disposition: Home or Self Care 01/14/2025 Transcribe Orders [facility] [address] [place] [address] Elizabeth Roblero MD Impetigo (Primary Dx) from Last 3 Months Immunizations Immunization Administration Dates Next Due COVID-19 (Pre-05/27) Pfizer Vaccine, mRNA, PF ,11/13/2020 Social History Tobacco Use Types Packs/Day Years Used Date Smoking Tobacco: Never Smokeless Tobacco: Never Tobacco Cessation:Counseling Given: Not Answered Alcohol Use Standard Drinks/Week Comments Yes 0 [...] on file Sexual Orientation Not on file Last Filed Vital Signs Vital Sign Reading Time Taken Comments Blood Pressure 164/95 03/20/2025 7:01 PM EDT Pulse 71 03/20/2025 7:01 PM EDT Temperature 36.2 C (97.2 F) 03/20/2025 7:01 PM EDT Respiratory Rate 16 03/20/2025 7:01 PM EDT Oxygen Saturation 97% 03/20/2025 7:01 PM EDT Inhaled Oxygen Concentration - - Weight 108.4 kg (239 lb) 11/01/2022 4:22 PM EDT Height 175.3 cm (5' 9 ) 11/01/2022 4:22 PM EDT Body Mass Index 35.29 11/01/2022 4:22 PM EDT Plan of Treatment Upcoming Encounters Date Type Department Care Team (Late st Contact Info) Description 04/16/2025 10:40 AM EDT Telemedicine - audio only [facility] [address] [place] [address] [place] [address] Nick Quinn MD [address] [facility], [address] [place] [address] Health Maintenance Due Date Last Done Comments DEPRESSION SCREENING 1969 HEPATITIS C SCREENING 1975 COLOGUARD 2002 COLONOSCOPY 2002 COLORECTAL CANCER SCREENING 2002 FIT TEST 2002 FOBT 2002 SIGMOIDOSCOPY 2002 VIRTUAL COLONOSCOPY 2002 Adult Td,Tdap Booster 05/23/2020 05/23/2010 BLOOD PRESSURE 06/11/2023 12/09/2022 COVID-19 VACCINE ( season) 2024 12/20/2020, 12/04/2020, 11/13/2020 DIABETIC EYE EXAM 07/07/2024 07/01/2018 PNEUMOCOCCAL VACCINES (50+ years) (3 of 3 - PCV20 or PCV21) 07/10/2024 07/10/2019, 10/21/2015 URINE MICROALBUMIN/CREATININE RATIO 09/27/2024 09/27/2023, 09/07/2021, 10/06/2020, Additional history exists HEMOGLOBIN A1C 01/05/2025 07/07/2024, 05/2 03/2024, 09/27/2023, Additional history exists INFLUENZA VACCINE (#1) 2025 , 06/21/2022, 05/25/2021, Additional history exists CREATININE LEVEL 07/07/2025 07/07/2024, , 09/07/2021, Additional history exists RSV VACCINE (1 - 1-dose 75+ series) 2032 ZOSTER VACCINES Completed 03/28/2018, 11/30/2017 SMOKING STATUS SCREENING (Once After 26 Yrs) Completed 08/19/2024 HEPATITIS A VACCINES Aged Out No long er eligible based on patient's age to complete this topic HIB VACCINES Aged Out No longer eligi ble based on patient's age to complete this topic MENINGOCOCCAL VACCINES (ACWY) Aged Out No longer eligible based on patient's age to complete this topic MENINGOCOCCAL VACCINES (B) Aged Out N o longer eligible based on patient's age to complete this topic Medical Devices Not on file Procedures Procedure Name Priority Date/Time Associated Diagnosis Comments MRI LUMBAR SPINE (NEURO) WITHOUT CONTRAST STAT 03/20/2025 1:24 PM EDT WOUND CULTURE/SMEAR Routine 01/14/2025 3 :52 PM EDT Impetigo HEMOGLOBIN A1C Routine 07/07/2024 10:29 AM EST Essential (primary) hypertension Type 2 diabetes mellitus without complication, unspecified whether superintendent terminal insulin use BASIC METABOLIC PANEL Routine 07/07/2024 10:29 AM EST Essential (primary) hypertension Type 2 diabetes mellitus without complication, unspecified whether superintendent terminal insulin use MICROALBUMIN/CREATI NINE RATIO, RANDOM URINE Routine 09/07/2021 10:04 AM EST Type 2 diabetes mellitus without complication, unspecified whether superintendent terminal insulin use Elevated liver function tests from Last 3 Months or Most Recently Relevant to Health Maintenance Results * MRI LUMBAR SPINE (NEURO) WITHOUT CONTRAST (03/20/2025 1:24 PM EDT) Anatomical Region Laterality Modality L-spine Magnetic Resonan ce 03/20/2025 5:31 PM EDT Impressions 03/20/2025 5:41 PM EDT 1. New large left-sided disc extrusion at L4-5 with paracentral, foraminal, and extraforaminal components, contributing to severe left foraminal stenosis with impingement of the left L4 nerve and severe left subarticular recess stenosis with impingement of the traversing left L5 nerve roots. Narrative 03/20/2025 5:41 PM EDT MRI LUMBAR SPINE (NEURO) WITHOUT CONTRAST Referring clinician's provided indication for this examination in Epic: * Low back pain, progressive neurologic deficit TECHNIQUE: MRI LUMBAR SPINE (NEURO) WITHOUT CONTRAST Multi-sequence, multi-planar MRI of the lumbar spine was performed without intravenous contrast. COMPARISON: MRI LUMBAR SPINE (BONE) WITHOUT CONTRAST FINDINGS: LUMBAR SPINE: Alignment and Vertebrae: Mild reversal of the upper lumbar lordosis. Retrolisthesis at L1-2, L2-3 and L3-4. No compression fracture. Marrow: No bone marrow replacing lesion. Discs and Endplates: Severe disc height loss at L1-2. Moderate disc height loss at L2-3 and L3-4. Minimal endplate edema at L3-4. Conus: The conus is normal in signal and terminates at L1-2. Soft Tissues: No paraspinal mass or fluid collection. Other Findings: Partially visualized exophytic right renal cyst. Findings by level: T12-L1: Small right paracentral annular fissure. No spinal canal or foraminal stenosis. L1-L2: Disc osteophyte complex. Mild spinal canal stenosis. No foraminal stenosis. L2-L3: Disc bulging with a left far lateral disc protrusion. Mild facet arthropathy. Mild spinal canal stenosis. Mild right and moderate left foraminal stenosis. L3-L4: Disc bulging, moderate facet arthropathy, prominence of the dorsal epidural fat. Moderate spinal canal stenosis. Moderate bilateral foraminal stenosis. Findings have slightly increased. L4-L5: Left-sided disc extrusion with paracentral, foraminal, and extraforaminal components. The left paracentral component has migrated superiorly to the mid L4 level and contributes to severe left subarticular recess stenosis with impingement of the traversing left L5 nerve roots. Left foraminal and extraforaminal components contribute to severe left foraminal stenosis with impingement of the left L4 nerve. Mild to moderate spinal canal stenosis. Moderate right foraminal stenosis. L5-S1: Disc bulging extending into the right foramen. Moderate to severe right foraminal stenosis, slightly increased compared with the prior MRI. No spinal canal stenosis. Mild facet arthropathy. Procedure Note Sean Noyola MD - 03/20/2025 MRI LUMBAR SPINE (NEURO) WITHOUT CONTRAST Referring clinician's provided indication for this examination in Epic: *Low back pain, progressive neurologic deficit TECHNIQUE: MRI LUMBAR SPINE (NEURO) WITHOUT CONTRAST Multi-sequence, multi-planar MRI of the lumbar spine was performed withoutintravenous contrast. COMPARISON: MRI LUMBAR SPINE (BONE) WITHOUT CONTRAST FINDINGS: LUMBAR SPINE: Alignment and Vertebrae: Mild reversal of the upper lumbar lordosis.Retrolisthesis at L1-2, L2-3 and L3-4. No compression fracture. Marrow: No bone marrow replacing lesion. Discs and Endplates: Severe disc height loss at L1-2. Moderate disc heightloss at L2-3 and L3-4. Minimal endplate edema at L3-4. Conus: The conus is normal in signal and terminates at L1-2. Soft Tissues: No paraspinal mass or fluid collection. Other Findings: Partially visualized exophytic right renal cyst. Findings by level: T12-L1: Small right paracentral annular fissure. No spinal canal orforaminal stenosis. L1-L2: Disc osteophyte complex. Mild spinal canal stenosis. No foraminalstenosis. L2-L3: Disc bulging with a left far lateral disc protrusion. Mild facetarthropathy. Mild spinal canal stenosis. Mild right and moderate leftforaminal stenosis. L3-L4: Disc bulging, moderate facet arthropathy, prominence of the dorsalepidural fat. Moderate spinal canal stenosis. Moderate bilateral foraminalstenosis. Findings have slightly increased. L4-L5: Left-sided disc extrusion with paracentral, foraminal, andextraforaminal components. The left paracentral component has migratedsuperiorly to the mid L4 level and contributes to severe left subarticularrecess stenosis with impingement of the traversing left L5 nerve roots.Left foraminal and extraforaminal components contribute to severe leftforaminal stenosis with impingement of the left L4 nerve. Mild to moderatespinal canal stenosis. Moderate right foraminal stenosis. L5-S1: Disc bulging extending into the right foramen. Moderate to severeright foraminal stenosis, slightly increased compared with the prior MRI.No spinal canal stenosis. Mild facet arthropathy. IMPRESSION: 1. New large left-sided disc extrusion at L4-5 with paracentral,foraminal, and extraforaminal components, contributing to severe leftforaminal stenosis with impingement of the left L4 nerve and severe leftsubarticular recess stenosis with impingement of the traversing left P6rsran roots. us Carol Ghotra PA-C IMG MR XSPECIALTY Final Resu lt * Wound culture/smear (01/14/2025 3:52 PM EDT) Special Requests None 01/14/2025 3:52 PM EDT [facility] GRAM STAIN NO ORGANISMS SEEN 01/15/2025 8:14 AM EDT [facility] Wound Culture/Smear NO GROWTH 48HRS 01/16/2025 10:44 AM EDT [facility] Other (Nasal) 01/14/2025 3:5 2 PM EDT 01/14/2025 3:53 PM EDT Comment:LEFT NASAL ALAR GROO VE us Elizabeth Roblero MD MICROBIOLOGY - GENERAL SHAUNNA FERNANDEZ Final Result [facility] [address] [place] [address] * (ABNORMAL) Hemoglobin A1c (07/07/2024 10:29 AM EST) HEMOGLOBIN A1C 6.4(H) 4.3 - 5.8 % [facility] Blood 07/07/2024 10:2 9 AM EST 07/07/2024 10:36 AM EST Yissel CRAIG LAB BLOOD ORDERABLES Final R esult Performing Organization Address City/[facility] Co de Phone Number [address] [address] * (ABNORMAL) Basic metabolic panel (07/07/2024 10:29 AM EST) Pathologist [facility] SODIUM 140 133 - 146 mmol/L [facility] CHLORIDE 104 96 - 108 mmol/L [facility] POTASSIUM 4.3 3.3 - 5.1 mmol/L [facility] Comment:Specimen slightly he molyzed, result may be falsely elevated. CO2 22 21 - 35 mmol/L [facility] BUN 20(H) 6 - 19 mg/dL [facility] CREATININE 0.80 0.5 - 1.5 mg/dL [facility] GLUCOSE 120(H) 70 - 99 mg/dL [facility] CALCIUM 9.6 8.4 - 10.3 mg/dL [facility] EGFR 98 >59 mL/min/1.7 3m2 [facility] Comment:Estimated glomerular filtration rate calculated using the CKD-EPI refit equation. ANION GAP 18 10 - 20 mmol/L [facility] Blood 07/07/2024 10:2 9 AM EST 07/07/2024 10:36 AM EST Yissel CRAIG LAB BLOOD ORDERABLES Final R esult [address] [address] * (ABNORMAL) Microalbumin/creatinine ratio, random urine (09/07/2021 10:04 AM EST) URINE MICROALBUMIN 14.2(H) 0 - 2.3 mg/dL [facility] URINE CREATININE 515 mg/dL [facility] MICROALB/CRE RATIO 27.6(H) 0 - 20 mg/g Cre [facility] Urine (Urine) 09/07/2021 10: 04 AM EST 09/07/2021 10:17 AM EST us Yissel CRAIG URINE ORDERABLES Final Resul t [facility] [address] [place] [address] from Last 3 Months or Most Recently Relevant to Health Maintenance Insurance [facility] MEDICARE SUPPLEMENT MEDICARE PART A & B [facility] MEDICARE SUPPLEMENT MEDICARE PART A & B MEDICARE PART A & B MEDICARE PART A & [place] [address] [address] MEDICARE SUPPLEMENT MEDICARE PART A & B [facility] MEDICARE SUPPLEMENT MEDICARE PART A & B [facility] [address] [place] [address] Care Teams Mathematics Department Chair Relationship Specialty Start Date End Date Sasha Mejia PA [address] [place] [phone] PCP - General Physician Newspaper Photographer 03/20/25 Additional Source Comments The information contained in this document represents components of the legal health record. It is not the complete legal health record.[facility]
--- OUTSIDE RECORDS SUMMARY | 2025-04-02 10:33 | XMS_ITS | Encounter Summary ---
Author Organization [facility] Address [address] [place] [phone] Phone Care Team Providers Care Color Sprayer Name Role Phone Yissel Wells Primary Care Provider [phone] Sasha Mejia Primary Care Provider [phone] Encounter Details Date Type Department Care Team (Latest Contact Info) Description 07/27/2024 Transcribe Orders Virtual Department [address] [place] [address] Britton Perez PA [address] [place] [address] Dysphagia, unspecified type (Primary Dx) Social History Tobacco Use Types [...] 10:40 AM EDT Telemedicine - audio only [facility] Sp[facility] Medicine [address] [place] [address] Nick Quinn MD [address] [facility], [address] [place] [address] [email or web address] documented as of this encounter Results * FL (Speech) Video Swallow Study (08/19/2024 11:33 AM EST) Anatomical Region Laterality Modality Radio Fluoroscop y 08/19/2024 12:2 3 PM EST Impressions 08/19/2024 3:49 PM EST Deep laryngeal penetration to the level of the vocal cords with thin and nectar thick barium. No cough response noted. Findings raise concern for possible microaspiration. Please refer to the clinical notes by the Speech Pathologist for detailed description of the Modified Swallow findings. FLUOROSCOPY TIME: 2 minutes 8 seconds NUMBER OF IMAGES: [id number] The examination was performed by [email or web address]. Dr. Jyoti Leary was immediately available for portions of the procedure as needed. ATTESTATION: I, Jyoti Leary as teaching physician, have reviewed the images for this case and if necessary edited the report originally created by Benjamin Nieto. Narrative 08/19/2024 3:49 PM EST FL MODIFIED BARIUM SWALLOW HISTORY:Dysphagia. COMPARISON:CT abdomen 10/30/2022. TECHNIQUE: Fluoroscopic assistance was provided for the speech pathologist during video swallow. The patient was observed in the lateral projection while being fed various consistencies of barium (thin liquids, nectar, pudding and cracker). FINDINGS: The oral and pharyngeal stages of swallowing will be reported separately by the Department of Speech and Language Pathology. Fluoroscopic examination demonstrated deep laryngeal penetration to the level of the vocal cords with thin and nectar thick barium, without subglottic extension of contrast. Semisolids and solids passed through the pharynx without difficulty. No significant pharyngeal residue. Procedure Note Jyoti Leary MD - 08/19/2024 FL MODIFIED BARIUM SWALLOW HISTORY:Dysphagia. COMPARISON:CT abdomen 10/30/2022. TECHNIQUE: Fluoroscopic assistance was provided for the speech pathologist duringvideo swallow. The patient was observed in the lateral projection whilebeing fed various consistencies of barium (thin liquids, nectar, puddingand cracker). FINDINGS: The oral and pharyngeal stages of swallowing will be reported separatelyby the Department of Speech and Language Pathology. Fluoroscopic examination demonstrated deep laryngeal penetration to thelevel of the vocal cords with thin and nectar thick barium, withoutsubglottic extension of contrast. Semisolids and solids passed through thepharynx without difficulty. No significant pharyngeal residue. IMPRESSION: Deep laryngeal penetration to the level of the vocal cords with thin andnectar thick barium. No cough response noted. Findings raise concern forpossible microaspiration. Please refer to the clinical notes by the Speech Pathologist for detaileddescription of the Modified Swallow findings. FLUOROSCOPY TIME: 2 minutes 8 seconds NUMBER OF IMAGES: [id number] The examination was performed by Benjamin MARTINO. Dr. Jyoti Leary wasimmediately available for portions of the procedure as needed. ATTESTATION: I, Jyoti Leary as teaching physician, have reviewed theimages for this case and if necessary edited the report originally createdby Benjamin Nieto. Britton CRAIG IMG FL EXAMS Final Result documented in this encounter Visit Diagnoses Diagnosis Dysphagia, unspecified type- Primary Pharyngeal dysphagia- Primary Dysphagia, pharyngeal phase Dysphagia, unspecified type documented in this encounter Care Teams Color Sprayer Relationship Specialty Start Date End Date Yissel Wells PA [address] [place] [phone] [email or web address] PCP - General Physician Rn Emergency Room 10/26/22 03/19/25 Sasha Mejia PA [address] [place] [phone] PCP - General Physician Rn Emergency Room 8/16/25 documented as of this encounter Additional Source Comments The information contained in this document represents components of the legal health record. It is not the complete legal health record.[facility]
--- OUTSIDE RECORDS SUMMARY | 2025-04-02 10:33 | XMS_ITS | Encounter Summary ---
Author Organization [facility] Address [address] [place] [address] Phone Care Team Providers Care Php Lamp Developer Name Role Phone Segundo Albright MD Primary Care Provider [phone] Yissel Wells Primary Care Provider Sasha Mejia Primary Care Provider [phone] Reason for Referral * MRI/CAT Scan - Closed Specialty Diagnoses / Procedures Referred By Contac t Referred To Contact Radiology Diagnoses Congenital multiple renal cysts Procedures CT Abdomen Only (No Pelvis) Aquilino Montenegro MD Phone: tel: fax: [email or web address] Referral ID Status Reason Start Date Expiration Date Visits Re quested Visits Authorized [id number] Closed 10/19/2022 10/19/2023 1 1 Encounter Details Date Type Department Care Team (Latest Contact Info) Description 10/19/2022 Transcribe Orders Virtual Department [address] [place] [address] Aquilino Montenegro MD [address] [place] [address], [address] [address] [email or web address] Congenital multiple renal cysts (Primary Dx) Social History Tobacco Use Types Packs/Day Years Used Date Smoking Tobacco: Never Smokeless Tobacco: Never Alcohol Use Standard Drinks/Week Comments Yes 0 (1 standard drink = 0.6 oz pur e alcohol) 1 months Sex and Gender Information Value Date Recorded Sex Assigned at Not on file Legal Sex Male 11:19 AM EDT Gender Identity Not on file Sexual Orientation Not on file documented as of this encounter Plan of Treatment Upcoming Encounters Date Type Department Care Team (Late st Contact Info) Description 04/16/2025 10:40 AM EDT Telemedicine - audio only [facility] Spine Medicine [address] [place] [address] Nick Quinn MD 22 [facility], 2nd [place] [address] .[employer] documented as of this encounter Results * CT ABDOMEN (RENAL MASS) WITH AND WITHOUT CONTRAST (10/30/2022 9:24 AM EDT) Anatomical Region Laterality Modality Abdomen, Abdominal Vasculature C omputed Tomography 10/31/2022 9:42 PM EDT Impressions 11/01/2022 6:17 AM EDT Benign right renal cysts. No solid renal mass. Narrative 11/01/2022 6:[address] ABDOMEN (RENAL MASS) WITH AND WITHOUT CONTRAST TECHNIQUE: Multidetector-row CT of the abdomen was performed before and after administration of intravenous contrast using tailored dose modulation techniques. Images were reconstructed in the axial, coronal, and sagittal planes COMPARISON: Lumbar spine MRI 05/04/2022. FINDINGS: Lower Chest: Normal. No consolidation or pleural effusions. Liver: No suspicious focal liver lesion. Biliary: No biliary ductal dilatation. Spleen: Punctate calcified splenic granulomas. Pancreas: Normal. No masses or ductal dilatation. Adrenal Glands: Normal. No nodules. Kidneys/Ureters: No solid renal mass or hydronephrosis. Benign cysts in the right midpole and right lower pole, measuring up to 4.7 cm. Bowel: No bowel obstruction or wall thickening. Peritoneum/Retroperitoneum: Normal. No masses, pneumoperitoneum, or fluid. Lymph Nodes: Normal. No lymphadenopathy. Vessels: No abdominal aortic aneurysm. Bones/Soft Tissues: No suspicious focal osseous lesion. Minimal spine degenerative changes. Procedure Note Lukas Hernandez MD - 11/01/2022 CT ABDOMEN (RENAL MASS) WITH AND WITHOUT CONTRAST TECHNIQUE: Multidetector-row CT of the abdomen was performed before andafter administration of intravenous contrast using tailored dosemodulation techniques. Images were reconstructed in the axial, coronal,and sagittal planes COMPARISON: Lumbar spine MRI 05/04/2022. FINDINGS: Lower Chest: Normal. No consolidation or pleural effusions. Liver: No suspicious focal liver lesion. Biliary: No biliary ductal dilatation. Spleen: Punctate calcified splenic granulomas. Pancreas: Normal. No masses or ductal dilatation. Adrenal Glands: Normal. No nodules. Kidneys/Ureters: No solid renal mass or hydronephrosis. Benign cysts inthe right midpole and right lower pole, measuring up to 4.7 cm. Bowel: No bowel obstruction or wall thickening. Peritoneum/Retroperitoneum: Normal. No masses, pneumoperitoneum, orfluid. Lymph Nodes: Normal. No lymphadenopathy. Vessels: No abdominal aortic aneurysm. Bones/Soft Tissues: No suspicious focal osseous lesion. Minimal spinedegenerative changes. IMPRESSION: Benign right renal cysts. No solid renal mass. Aquilino Montenegro MD IM CT XSPECIALTY ORDERABLES F inal Result * (ABNORMAL) Basic metabolic panel (10/26/2022 11:33 AM EDT) SODIUM 139 133 - 146 mmol/L [facility] CHLORIDE 105 96 - 108 mmol/L [facility] POTASSIUM 4.4 3.3 - 5.1 mmol/L [facility] CO2 25 21 - 35 mmol/L [facility] BUN 13 6 - 19 mg/dL [facility] CREATININE 0.90 0.5 - 1.5 mg/dL [facility] GLUCOSE 128(H) 70 - 99 mg/dL [facility] CALCIUM 9.4 8.4 - 10.3 mg/dL [facility] EGFR 95 >59 mL/min/1.7 3m2 [facility] Comment:Estimated glomerular filtration rate calculated using the CKD-EPI refit equation. ANION GAP 13 10 - 20 mmol/L [facility] Blood 10/26/2022 11:3 3 AM EDT 10/26/2022 11:37 AM EDT us Aquilino Montenegro MD LAB BLOOD ORDERABLES Final Res ult [facility] [address] [place] [address] documented in this encounter Visit Diagnoses Diagnosis Congenital multiple renal cysts- Primary Congenital multiple renal cysts documented in this encounter Care Teams Php Lamp Developer Relationship Specialty Start Date End Date Segundo Albright MD [address] [place] [address] [email or web address] PCP - General 06/11/17 10/25/22 Yissel Wells PA [address] [place] [address] [email or web address] PCP - General Physician Forensic Computer Examiner 10/26/22 03/19/25 Sasha Mejia PA [address] [place] [address] PCP - General Physician Forensic Computer Examiner 03/20/25 documented as of this encounter Additional Source Comments The information contained in this document represents components of the legal health record. It is not the complete legal health record.[facility]
--- OUTSIDE RECORDS SUMMARY | 2025-04-02 10:33 | XMS_ITS | Encounter Summary ---
Author Organization [facility] Address [address] [place] [address] [place] [address] Phone Care Team Providers Care Hr Recruiter Name Role Phone Segundo Albright MD Primary Care Provider Yissel Wells Primary Care Provider Sasha Mejia Primary Care Provider [phone] Encounter Details Date Type Department Care Team (Late st Contact Info) Description 10/19/2022 Procedure Pass [facility], Ct Scan - [address] [address] Social History Tobacco Use Types Packs/Day Years [...] Encounters Date Type Department Care Team (Late Contact Info) Description 04/16/2025 10:40 AM EDT Telemedicine - audio only [facility] Spine Medicine [address] [place] [address] Nick Quinn MD 22 [facility], 2nd [place] [address] documented as of this encounter Visit Diagnoses Not on filedocumented in this encounter Care Teams Hr Recruiter Relationship Specialty Start Date End Date Segundo Albright MD [address] [place] [address] [email or web address] PCP - General 06/11/17 10/25/22 Yissel Wells PA [address] [place] [address] [email or web address] PCP - General Physician Meter Setter 10/26/22 03/19/25 Sasha Mejia PA [address] [place] [address] PCP - General Physician Meter Setter 03/20/25 documented as of this encounter Additional Source Comments The information contained in this document represents components of the legal health record. It is not the complete legal health record.[facility]
--- OUTSIDE RECORDS SUMMARY | 2025-04-02 10:33 | XMS_ITS | Encounter Summary ---
Author Organization [facility] Address [address] [place] [address] [place] [address] Phone Care Team Providers Care Emergency Preparedness Coordinator Name Role Phone Segundo Albright MD Primary Care Provider Segundo Albright MD Primary Care Provider Yissel Wells Primary Care Provider Sasha Mejia Primary Care Provider Encounter Details Date Type Department Care Team (Late st Contact Info) Description 01/29/2017 Procedure Pass [facility] [address] [place] [address] Social History Tobacco Use Types Packs/Day Years [...] [facility] Spine Medicine [address] [place] [address] Nick Quinn MD 22 [facility], 2nd [place] [address] documented as of this encounter Visit Diagnoses Not on filedocumented in this encounter Care Teams Emergency Preparedness Coordinator Relationship Specialty Start Date End Date Segundo Albright MD [address] [place] [address] [email or web address] PCP - General Family Medicine 01/02/17 06/10/17 Segundo Albright MD [address] [place] [address] [email or web address] PCP - General 06/11/17 10/25/22 Yissel Wells PA [address] [place] [address] [email or web address] PCP - General Physician Mechanical Piping Designer 10/26/22 03/19/25 Sasha Mejia PA [address] [place] [phone] PCP - General Physician Mechanical Piping Designer 03/20/25 documented as of this encounter Additional Source Comments The information contained in this document represents components of the legal health record. It is not the complete legal health record.[facility]
--- OUTSIDE RECORDS SUMMARY | 2025-04-02 10:33 | XMS_ITS | Encounter Summary ---
Author Organization [facility] Address [address] [place] [address] Phone Care Team Providers Care Precision Filer Hand Name Role Phone Segundo Albright MD Primary Care Provider Yissel Wells Primary Care Provider Sasha Mejia Primary Care Provider Encounter Details Date Type Department Care Team (Late st Contact Info) Description 06/11/2017 Procedure Pass [facility] [address] [place] [address] Social History Tobacco Use Types Packs/Day Years Used Date Smoking Tobacco: Never Assessed Sex and Gender Information Value Date Recorded Sex Assigned at Not on file Legal Sex Male 11:19 AM EDT Gender Identity Not on file Sexual Orientation Not on file documented as of this encounter Last Filed Vital Signs Vital Sign Reading Time Taken Comments Blood Pressure - - Pulse - - Temperature - - Respiratory Rate - - Oxygen Saturation - - Inhaled Oxygen Concentration - - Weight 106.6 kg (235 lb) 06/13/2017 12:44 PM EST Height 175.3 cm (5' 9 ) 06/13/2017 12:44 PM EST Body Mass Index 34.7 06/13/2017 12:44 PM EST documented in this encounter Plan of Treatment Upcoming Encounters Date Type Department Care Team (Late st Contact Info) Description 04/16/2025 10:40 AM EDT Telemedicine - audio only [facility] Spine Medicine [address] [place] [address] Nick Quinn MD [address] [place] [address] [place] [address] [email or web address] documented as of this encounter Visit Diagnoses Not on filedocumented in this encounter Care Teams Precision Filer Hand Relationship Specialty Start Date End Date Segundo Albright MD [address] [place] [address] [email or web address] PCP - General 06/11/17 10/25/22 Yissel Wells PA [address] [place] [address] [email or web address] PCP - General Physician Vamp Strap Ironer 10/26/22 03/19/25 Sasha Mejia PA [address] [place] [phone] PCP - General Physician Vamp Strap Ironer 03/20/25 documented as of this encounter Additional Source Comments The information contained in this document represents components of the legal health record. It is not the complete legal health record.[facility]
--- OUTSIDE RECORDS SUMMARY | 2025-04-02 10:33 | XMS_ITS | Encounter Summary ---
Author Organization [facility] Address [address] [place] [address] Phone Care Team Providers Care Hazardous Waste Management Specialist Name Role Phone Segundo Albright MD Primary Care Provider Yissel Wells Primary Care Provider Sasha Mejia Primary Care Provider Encounter Details Date Type Department Care Team (Latest Contact Info) Description 10/07/2019 Transcribe Orders [facility] [address] [place] [address] Yissel Wells PA [address] [place] [address] [email or web address] Type 2 diabetes mellitus without complication, unspecified whether long distance operator insulin use (Primary Dx) Social History Tobacco Use Types [...] EDT Telemedicine - audio only [facility] Spine Medicine [address] [place] [address] Nick Quinn MD 22 [facility], 2nd [place] [address] documented as of this encounter Visit Diagnoses Diagnosis Type 2 diabetes mellitus without complication, unspecified whether intermediate insulin use- Primary documented in this encounter Care Teams Hazardous Waste Management Specialist Relationship Specialty Start Date End Date Segundo Albright MD [address] [place] [address] [email or web address] PCP - General 06/11/17 10/25/22 Yissel Wells PA [address] [place] [address] [email or web address] PCP - General Physician Special Procedures Nurse 10/26/22 03/19/25 Sasha Mejia PA [address] [place] [phone] PCP - General Physician Special Procedures Nurse 03/20/25 documented as of this encounter Additional Source Comments The information contained in this document represents components of the legal health record. It is not the complete legal health record.[facility]
--- OUTSIDE RECORDS SUMMARY | 2025-04-02 10:33 | XMS_ITS | Encounter Summary ---
Author Organization [facility] Address [address] [facility] [address] [place] [address] Phone Care Team Providers Care Jumpbasting Lining Baster Name Role Phone Segundo Albright MD Primary Care Provider Yissel Wells Primary Care Provider [phone] Sasha Mejia Primary Care Provider Encounter Details Date Type Department Care Team (Latest Contact Info) Description 06/13/2017 Transcribe Orders [facility] [address] [place] [address] Segundo Albright MD [address] [place] [address] [email or web address] Testicular hypofunction (Primary Dx); Mixed hyperlipidemia; Diabetes mellitus without complication Social History Tobacco Use Types Packs/Day Years [...] AM EDT Telemedicine - audio only [facility] Spine Medicine [address] [place] [address] Nick Quinn MD 22 [facility], 2nd [place] [address] documented as of this encounter Procedures Procedure Name Priority Date/Time Associated Diagnosis Comments LFTS (HEPATIC PANEL) Routine 06/14/2017 9:33 AM EST Testicular hypofunction Mixed hyperlipidemia Diabetes mellitus without complication MICROALBUMIN/CREATI NINE RATIO, RANDOM URINE Routine 06/14/2017 9:33 AM EST Testicular hypofunction Mixed hyperlipidemia Diabetes mellitus without complication CBC Routine 06/14/2017 9:33 AM EST Testicular hypofunction Mixed hyperlipidemia Diabetes mellitus without complication PSA (SCREENING) Routine 06/14/2017 9:33 AM EST Testicular hypofunction Mixed hyperlipidemia Diabetes mellitus without complication HEMOGLOBIN A1C Routine 06/14/2017 9:33 AM EST Testicular hypofunction Mixed hyperlipidemia Diabetes mellitus without complication LIPID PANEL Routine 06/14/2017 9:33 AM EST Testicular hypofunction Mixed hyperlipidemia Diabetes mellitus without complication BASIC METABOLIC PANEL Routine 06/14/2017 9:33 AM EST Testicular hypofunction Mixed hyperlipidemia Diabetes mellitus without complication documented in this encounter Results * (ABNORMAL) Microalbumin/creatinine ratio, random urine (06/14/2017 9:33 AM EST) URINE MICROALBUMIN 3.9(H) 0 - 2.3 mg/dL [facility] URINE CREATININE 417 mg/dL FIELD RETURN REPAIRER [facility] MICROALB/CRE RATIO 9.4 0 - 20 mg/g Cre [facility] Urine (Urine) 06/14/2017 9:3 3 AM EST 06/14/2017 9:58 AM EST us Segundo Albright MD URINE ORDERABLES Final Result [facility] [address] [place] [address] * (ABNORMAL) Lipid panel (06/14/2017 9:33 AM EST) HDL 52 mg/dL [facility] Comment: Interpretation: Risk Level Males Decreased >45 mg/dL Average 40-45 mg/dL Increased <40 mg/dL CHOLESTEROL 167 0 - 240 mg/dL [facility] TRIGLYCERIDES 134 30 - 160 mg/dL [facility] LDL 88 50 - 129 mg/dL [facility] Comment: LDL levels in terms of risk for coronary heart disease: <100 mg/dL: Optimal 100-129 mg/dL: Near or above optimal 130-159 mg/dL: Borderline high 160-189 mg/dL: High >190 mg/dL: Very High CARDIAC RISK RATIO 3.2(L) 3.4 - 5.0 C [facility] Blood 06/14/2017 9:33 AM EST 06/14/2017 9:48 AM EST Segundo Albright MD LAB BLOOD ORDERABLES Final Resu lt Performing Organization Address City/[facility]/ZIP Co de Phone Number [address] [address] * (ABNORMAL) Basic metabolic panel (06/14/2017 9:33 AM EST) SODIUM 143 133 - 146 mmol/L [facility] CHLORIDE 104 96 - 108 mmol/L [facility] POTASSIUM 4.8 3.3 - 5.1 mmol/L [facility] CO2 28 21 - 35 mmol/L [facility] BUN 13 6 - 19 mg/dL [facility] CREATININE 0.90 0.5 - 1.5 mg/dL [facility] GLUCOSE 132(H) 70 - 99 mg/dL [facility] CALCIUM 9.8 8.4 - 10.3 mg/dL [facility] EGFR >60 60 - 1000 mL/min/1. 73m2 [facility] Comment:Abnormal if <60. If patient is -Russian, multiply the result by 1.21. ANION GAP NOT CALCULATED 10 - 20 mmol/L [facility] Blood 06/14/2017 9:33 AM EST 06/14/2017 9:48 AM EST Segundo Albright MD LAB BLOOD ORDERABLES Final Resu lt [address] [address] * CBC (06/14/2017 9:33 AM EST) WBC 6.56 3.40 - 11.20 K/uL [facility] RBC 5.09 4.50 - 5.50 M/uL [facility] HGB 15.3 13.0 - 17.0 g/dL [facility] HCT 43.9 40.0 - 51.0 % [facility] PLT 216 130 - 400 K/uL [facility] MCV 86.2 79.0 - 98.0 fL [facility] MCH 30.1 27.0 - 34.8 pg [facility] MCHC 34.9 31.5 - 36.0 g/dL [facility] RDW 13.0 10.8 - 14.6 % [facility] MPV 9.8 9.4 - 12.4 fl [facility] NRBC 0.00 /100 WBCs [facility] ABSOLUTE NRBC 0.00 K/uL [facility] Blood 06/14/2017 9:33 AM EST 06/14/2017 9:48 AM EST us Segundo Albright MD LAB BLOOD ORDERABLES Final Resu lt Performing Organization Address [facility] Co de Phone Number [address] [address] * (ABNORMAL) Hemoglobin A1c (06/14/2017 9:33 AM EST) HEMOGLOBIN A1C 6.6(H) 4.3 - 5.8 % [facility] Blood 06/14/2017 9:33 AM EST 06/14/2017 9:48 AM EST us Segundo Albright MD LAB BLOOD ORDERABLES Final Resu lt Performing Organization Address City/[facility]/ZIP Co de Phone Number [address] [address] * LFTs (hepatic panel) (06/14/2017 9:33 AM EST) ALKALINE PHOSPHATASE 63 39 - 117 U/L [facility] TOTAL BILIRUBIN 0.9 0 - 1.2 mg/dL [facility] DIRECT BILIRUBIN <0.2 0 - 0.3 mg/dL [facility] Bilirubin (Indirect) NOT CALCULATED 0 - 1.5 mg/dL [facility] AST 23 0 - 37 U/L [facility] ALT 28 0 - 40 U/L [facility] TOTAL PROTEIN 7.4 6.5 - 8.0 g/dL [facility] ALBUMIN 4.7 3.9 - 4.8 g/dL [facility] GLOBULIN 2.7 1 - 4.8 g/dL [facility] A/G Ratio 1.74 1.00 - 4.80 RATIO [facility] Blood 06/14/2017 9:33 AM EST 06/14/2017 9:48 AM EST us Segundo Albright MD LAB BLOOD ORDERABLES Edited Res ult - Final Performing Organization Address [facility] Co de Phone Number [address] [address] * PSA (screening) (06/14/2017 9:33 AM EST) PSA 0.39 0 - 4.00 ng/mL [facility] Blood 06/14/2017 9:33 AM EST 06/14/2017 1:13 PM EST us Segundo Albright MD LAB BLOOD ORDERABLES Final Resu lt Performing Organization Address [facility] Co de Phone Number [address] [address] documented in this encounter Visit Diagnoses Diagnosis Testicular hypofunction- Primary Other testicular hypofunction Mixed hyperlipidemia Diabetes mellitus without complication Type II or unspecified type diabetes mellitus without mention of complication, not stated as uncontrolled documented in this encounter Care Teams Jumpbasting Lining Baster Relationship Specialty Start Date End Date Segundo Albright MD [address] [place] [phone] [email or web address] PCP - General 06/11/17 10/25/22 Yissel Wells PA [address] [place] [address] [email or web address] PCP - General Physician Resin Coater 10/26/22 03/19/25 Sasha Mejia PA [address] [place] [phone] PCP - General Physician Resin Coater 03/20/25 documented as of this encounter Additional Source Comments The information contained in this document represents components of the legal health record. It is not the complete legal health record.[facility]
--- OUTSIDE RECORDS SUMMARY | 2025-04-02 10:33 | XMS_ITS | Encounter Summary ---
Author Organization [facility] Address [address] [place] [address] Phone Care Team Providers Care Risk Management Manager Name Role Phone Segundo Albright MD Primary Care Provider Yissel Wells Primary Care Provider Sasha Mejia Primary Care Provider [phone] Encounter Details Date Type Department Care Team (Latest Contact Info) Description 06/16/2020 Transcribe Orders [facility] [address] [place] [address] Yissel Wells PA [address] [place] [address] [email or web address] Type 2 diabetes mellitus without complication, unspecified whether rn long term care insulin use (Primary Dx) Social History Tobacco [...] EDT Telemedicine - audio only Jean [facility] [address] [place] [address] Nick Quinn MD 22 [facility], 2nd [place] [address] documented as of this encounter Results * Lipid panel (02/14/2021 9:34 AM EDT) HDL 48 mg/dL [facility] Comment: Interpretation <40 mg/dL: Low HDL cholesterol (major risk factor for CHD) Greater than or equal to 60 mg/dL: High HDL cholesterol ( negative risk factor for CHD) HDL - cholesterol is affected by a number of factors, e.g. smoking, excerise, hormones, sex and age. CHOLESTEROL 167 0 - 240 mg/dL [facility] TRIGLYCERIDES 160 30 - 160 mg/dL [facility] LDL 87 50 - 129 mg/dL [facility] Comment: LDL levels in terms of risk for coronary heart disease: <100 mg/dL: Optimal 100-129 mg/dL: Near or above optimal 130-159 mg/dL: Borderline high 160-189 mg/dL: High >190 mg/dL: Very High CARDIAC RISK RATIO 3.5 3.4 - 5.0 [facility] Blood 02/14/2021 9:34 AM EDT 02/14/2021 9:37 AM EDT us Yissel CRAIG LAB BLOOD ORDERABLES Final R esult [facility] [address] [place] [address] * (ABNORMAL) Comprehensive metabolic panel (02/14/2021 9:34 AM EDT) SODIUM 138 133 - 146 mmol/L [facility] POTASSIUM 4.2 3.3 - 5.1 mmol/L [facility] CHLORIDE 104 96 - 108 mmol/L [facility] CO2 23 21 - 35 mmol/L [facility] BUN 13 6 - 19 mg/dL [facility] CREATININE 0.80 0.5 - 1.5 mg/dL [facility] GLUCOSE 146(H) 70 - 99 mg/dL [facility] ALBUMIN 4.6 3.9 - 4.8 g/dL [facility] TOTAL PROTEIN 6.8 6.5 - 8.0 g/dL [facility] CALCIUM 9.5 8.4 - 10.3 mg/dL [facility] ALKALINE PHOSPHATASE 62 39 - 117 U/L [facility] TOTAL BILIRUBIN 0.5 0.0 - 1.2 mg/dL [facility] AST 20 0 - 37 U/L [facility] ALT 19 0 - 40 U/L [facility] GLOBULIN 2.2 1 - 4.8 g/dL [facility] EGFR 95 >59 mL/min/1.7 3m2 [facility] Comment:Estimated glomerular filtration rate calculated using the CKD-EPI equation. ANION GAP 15 10 - 20 mmol/L [facility] Blood 02/14/2021 9:34 AM EDT 02/14/2021 9:37 AM EDT Yissel CRAIG LAB BLOOD ORDERABLES Final R esult Performing Organization Address City/[facility] Co de Phone Number [address] [address] * (ABNORMAL) Microalbumin/creatinine ratio, random urine (10/06/2020 11:53 AM EST) URINE MICROALBUMIN 3.6(H) 0 - 2.3 mg/dL [facility] URINE CREATININE 307 mg/dL [facility] MICROALB/CRE RATIO 11.7 0 - 20 mg/g Cre [facility] Urine (Urine) 10/06/2020 11: 53 AM EST 10/06/2020 11:55 AM EST Yissel CRAIG URINE ORDERABLES Final Resul t Performing Organization Address City/[facility]/ZIP Co de Phone Number [address] [address] * Lipid panel (10/06/2020 10:26 AM EST) HDL 42 mg/dL [facility] Comment: Interpretation <40 mg/dL: Low HDL cholesterol (major risk factor for CHD) Greater than or equal to 60 mg/dL: High HDL cholesterol ( negative risk factor for CHD) HDL - cholesterol is affected by a number of factors, e.g. smoking, excerise, hormones, sex and age. CHOLESTEROL 167 0 - 240 mg/dL [facility] TRIGLYCERIDES 122 30 - 160 mg/dL [facility] LDL 101 50 - 129 mg/dL [facility] Comment: LDL levels in terms of risk for coronary heart disease: <100 mg/dL: Optimal 100-129 mg/dL: Near or above optimal 130-159 mg/dL: Borderline high 160-189 mg/dL: High >190 mg/dL: Very High CARDIAC RISK RATIO 4.0 3.4 - 5.0 [facility] Blood 10/06/2020 10:2 6 AM EST 10/06/2020 10:32 AM EST us Yissel CRAIG LAB BLOOD ORDERABLES Final R esult Performing Organization Address City/State/[facility] Co de Phone Number [address] [address] * (ABNORMAL) Comprehensive metabolic panel (10/06/2020 10:26 AM EST) SODIUM 139 133 - 146 mmol/L [facility] POTASSIUM 4.3 3.3 - 5.1 mmol/L [facility] CHLORIDE 104 96 - 108 mmol/L [facility] CO2 25 21 - 35 mmol/L [facility] BUN 17 6 - 19 mg/dL [facility] CREATININE 0.90 0.5 - 1.5 mg/dL [facility] GLUCOSE 148(H) 70 - 99 mg/dL [facility] ALBUMIN 4.3 3.9 - 4.8 g/dL [facility] TOTAL PROTEIN 6.5 6.5 - 8.0 g/dL [facility] CALCIUM 9.2 8.4 - 10.3 mg/dL [facility] ALKALINE PHOSPHATASE 63 39 - 117 U/L [facility] TOTAL BILIRUBIN 0.3 0.0 - 1.2 mg/dL [facility] AST 21 0 - 37 U/L [facility] ALT 18 0 - 40 U/L [facility] GLOBULIN 2.2 1 - 4.8 g/dL [facility] EGFR 91 >59 mL/min/1.7 3m2 [facility] Comment:Estimated glomerular filtration rate calculated using the CKD-EPI equation. ANION GAP 14 10 - 20 mmol/L [facility] Blood 10/06/2020 10:2 6 AM EST 10/06/2020 10:32 AM EST Yissel CRAIG LAB BLOOD ORDERABLES Final R esult [facility] [address] [place] [address] documented in this encounter Visit Diagnoses Diagnosis Type 2 diabetes mellitus without complication, unspecified whether rn long term care insulin use- Primary documented in this encounter Care Teams Risk Management Manager Relationship Specialty Start Date End Date Segundo Albright MD [address] [place] [address] [email or web address] PCP - General 06/11/17 10/25/22 Yissel Wells PA [address] [place] [address] [email or web address] PCP - General Physician Roving Sizer 10/26/22 03/19/25 Sasha Mejia PA [address] [place] [address] PCP - General Physician Roving Sizer 03/20/25 documented as of this encounter Additional Source Comments The information contained in this document represents components of the legal health record. It is not the complete legal health record.[facility]
--- OUTSIDE RECORDS SUMMARY | 2025-04-02 10:33 | XMS_ITS | Encounter Summary ---
Author Organization [facility] Address [address] [place] [address] Phone Care Team Providers Care Gasoline Dragline Operator Name Role Phone Segundo Albright MD Primary Care Provider Yissel Wells Primary Care Provider Sasha Mejia Primary Care Provider [phone] Encounter Details Date Type Department Care Team (Latest Contact Info) Description 07/10/2019 Transcribe Orders [facility] [address] [place] [address] Yissel Wells PA [address] [place] [address] [email or web address] om Type 2 diabetes mellitus without complication, unspecified whether program director scouting insulin use (Primary Dx) Social History Tobacco [...] EDT Telemedicine - audio only Jean Carlos [facility] [address] [place] [address] Nick Quinn MD 22 [facility], 2nd [place] [address] documented as of this encounter Visit Diagnoses Diagnosis Type 2 diabetes mellitus without complication, unspecified whether [facility] insulin use- Primary documented in this encounter Care Teams Gasoline Dragline Operator Relationship Specialty Start Date End Date Segundo Albright MD [address] [place] [address] [email or web address] PCP - General 06/11/17 10/25/22 Yissel Wells PA [address] [place] [address] [email or web address] PCP - General Physician Physical Medicine Teacher 10/26/22 03/19/25 Sasha Mejia PA [address] [place] [id number] PCP - General Physician Physical Medicine Teacher 03/20/25 documented as of this encounter Additional Source Comments The information contained in this document represents components of the legal health record. It is not the complete legal health record.[facility]
--- OUTSIDE RECORDS SUMMARY | 2025-04-02 10:33 | XMS_ITS | Encounter Summary ---
Author Organization [facility] Address [address] [place] [address] Phone Care Team Providers Care Jewelry Designer Name Role Phone Segundo Albright MD Primary Care Provider Yissel Wells Primary Care Provider Sasha Mejia Primary Care Provider Encounter Details Date Type Department Care Team (Late st Contact Info) Description 04/11/2022 Procedure Pass [facility], [address] [address] Social History Tobacco Use Types Packs/Day Years [...] AM EDT Telemedicine - audio only [facility] Spine Medicine [address] [place] [address] Nick Quinn MD 22 [facility], 2nd [place] [address] [email or web address] documented as of this encounter Visit Diagnoses Not on filedocumented in this encounter Care Teams Jewelry Designer Relationship Specialty Start Date End Date Segundo Albright MD [address] [place] [address] [email or web address] PCP - General 06/11/17 10/25/22 Yissel Wells PA [address] [place] [address] [email or web address] PCP - General Physician Veneer Sander 10/26/22 03/19/25 Sasha Mejia PA [address] [place] [address] PCP - General Physician Veneer Sander 03/20/25 documented as of this encounter Additional Source Comments The information contained in this document represents components of the legal health record. It is not the complete legal health record.[facility]
--- OUTSIDE RECORDS SUMMARY | 2025-04-02 10:33 | XMS_ITS | Encounter Summary ---
Author Organization [facility] Address [address] [place] [address] Phone Care Team Providers Care Insurance Sales Supervisor Name Role Phone Segundo Albright MD Primary Care Provider [phone] Yissel Wells Primary Care Provider [phone] Sasha Mejia Primary Care Provider Encounter Details Date Type Department Care Team (Latest Contact Info) Description 06/10/2019 Transcribe Orders [facility] [address] [place] [address] Yissel Wells PA [address] [place] [phone] [email or web address] om Type 2 diabetes mellitus without complication, unspecified whether smoke room operator insulin use (Primary Dx) Social History [...] EDT Telemedicine - audio only Jean Carlos [facility] [address] [place] [address] Nick Quinn MD 22 [facility], 2nd [place] [address] documented as of this encounter Results * Microalbumin/creatinine ratio, random urine (06/13/2019 11:54 AM EST) URINE MICROALBUMIN <1.2 0 - 2.3 mg/dL [facility] URINE CREATININE 230 mg/dL LOGISTICS CENTER MANAGER [facility] MICROALB/CRE RATIO NOT CALCULATED 0 - 20 mg/g Cre [facility] Comment:due to Microalbumin <1.2 Urine (Urine) 06/13/2019 11: 54 AM EST 06/13/2019 11:58 AM EST us Yissel CRAIG URINE ORDERABLES Final Resul t Performing Organization Address City/State/[facility] Co de Phone Number [facility] [address] [place] [address] documented in this encounter Visit Diagnoses Diagnosis Type 2 diabetes mellitus without complication, unspecified whether half-way insulin use- Primary documented in this encounter Care Teams Insurance Sales Supervisor Relationship Specialty Start Date End Date Segundo Albright MD [address] [place] [address] [email or web address] PCP - General 06/11/17 10/25/22 Yissel Wells PA [address] [place] [address] [email or web address] PCP - General Physician Adult Specialist 10/26/22 03/19/25 Sasha Mejia PA [address] [place] [address] PCP - General Physician Adult Specialist 03/20/25 documented as of this encounter Additional Source Comments The information contained in this document represents components of the legal health record. It is not the complete legal health record.[facility]
--- OUTSIDE RECORDS SUMMARY | 2025-04-02 10:33 | XMS_ITS | Encounter Summary ---
Author Organization [facility] Address [address] [place] [address] Phone Care Team Providers Care Paper Machine Operator Name Role Phone Segundo Albright MD Primary Care Provider [phone] Yissel Wells Primary Care Provider [phone] Sasha Mejia Primary Care Provider [phone] Reason for Referral * MRI/CAT Scan - Closed Specialty Diagnoses / Procedures Referred By Contac t Referred To Contact Radiology Diagnoses Chronic low back pain, unspecified back pain laterality, with sciatica presence unspecified Procedures MRI Lumbar Spine CHG MRI, LUMBAR SPINE CONTRAST Karl Fowler DO Phone: tel: fax: [email or web address] om Referral ID Status Reason Start Date Expiration Date Visits Re quested Visits Authorized [id number] Closed 06/06/2017 08/09/2017 1 1 Encounter Details Date Type Department Care Team (Late st Contact Info) Description 06/11/2017 Ancillary Orders Virtual Department [address] [place] [address] Karl Fowler DO [address] [place] [address] [email or web address] Chronic low back pain, unspecified back pain laterality, with sciatica presence unspecified Social History Tobacco Use Types Packs/Day Years [...] Telemedicine - audio only [facility] Medicine [address] [place] [address] Nick Quinn MD 22 [facility], 2nd [place] [address] [email or web address] documented as of this encounter Results * MRI LUMBAR SPINE (BONE) WITH AND WITHOUT CONTRAST (06/15/2017 1:28 PM EST) Anatomical Region Laterality Modality L-spine Magnetic Resonan ce 06/16/2017 6:38 PM EST Impressions 06/16/2017 6:55 PM EST The abnormality within the left neuroforamen at L2-L3 is favored to be an extruded disc fragment with surrounding inflammatory tissue. Mild enhancement within the left psoas muscle and left paraspinous musculature probably due to strain. POS - [id number] Narrative 06/16/2017 6:55 PM EST HISTORY: Lower back pain and numbness left thigh. Abnormality in the left neuroforamen at L2-L3. COMPARISON: Read in conjunction with non-enhanced MRI lumbar spine sequences of 05/29/2017. TECHNIQUE: Exam performed on a 1.5 Janine high-field MRI scanner. Axial and sagittal pre- and imln-[id number] sequences obtained to further evaluate left neuroforamen at L2-L3. FINDINGS: The signal abnormality within the left neuroforamen, which is isointense to disc on the nine enhanced T1 sequence and appears to be contiguous with the posterior lateral aspect of the annulus does not demonstrate significant enhancement centrally. There is peripheral enhancement. No evidence of abnormal enhancement within the lower thoracic spinal cord or conus medullaris. No evidence of other areas of abnormal intrathecal enhancement. No suspicious enhancement within the disc spaces. Evidence of mild enhancement within the left psoas muscle and left paraspinous musculature. Procedure Note Merrill Bynum MD - 06/16/2017 HISTORY: Lower back pain and numbness left thigh. Abnormality in theleft neuroforamen at L2-L3. COMPARISON: Read in conjunction with non-enhanced MRI lumbar spinesequences of 05/29/2017. TECHNIQUE: Exam performed on a 1.5 Janine high-field MRI scanner. Axialand sagittal pre- and lkun-[id number]-[id number] sequences obtained tofurther evaluate left neuroforamen at L2-L3. FINDINGS: The signal abnormality within the left neuroforamen, which is isointenseto disc on the nine enhanced T1 sequence and appears to be contiguous withthe posterior lateral aspect of the annulus does not demonstratesignificant enhancement centrally. There is peripheral enhancement. No evidence of abnormal enhancement within the lower thoracic spinal cordor conus medullaris. No evidence of other areas of abnormal intrathecalenhancement. No suspicious enhancement within the disc spaces. Evidence of mild enhancement within the left psoas muscle and leftparaspinous musculature. IMPRESSION: The abnormality within the left neuroforamen at L2-L3 is favored to be anextruded disc fragment with surrounding inflammatory tissue. Mildenhancement within the left psoas muscle and left paraspinous musculatureprobably due to strain. POS - [id number] us Karl Fowler DO IMG MR XSPECIALTY Final Resu lt documented in this encounter Visit Diagnoses Diagnosis Chronic low back pain, unspecified back pain laterality, with sciatica presence unspecified Chronic low back pain, unspecified back pain laterality, with sciatica presence unspecified documented in this encounter Care Teams Paper Machine Operator Relationship Specialty Start Date End Date Segundo Albright MD [address] [place] [address] [email or web address] PCP - General 06/11/17 10/25/22 Yissel Wells PA [address] [place] [address] [email or web address] PCP - General Physician Drop Shipment Clerk 10/26/22 03/19/25 Sasha Mejia PA [address] [place] [id number] PCP - General Physician Drop Shipment Clerk 03/20/25 documented as of this encounter Additional Source Comments The information contained in this document represents components of the legal health record. It is not the complete legal health record.[facility]
--- OUTSIDE RECORDS SUMMARY | 2025-04-02 10:33 | XMS_ITS | Encounter Summary ---
Author Organization [facility] Address [address] [place] [address] Phone Care Team Providers Care Color Receiver Name Role Phone Segundo Albright MD Primary Care Provider [phone] Yissel Wells Primary Care Provider Sasha Mejia Primary Care Provider Encounter Details Date Type Department Care Team (Late st Contact Info) Description 12/02/2017 Transcribe Orders [facility] [address] [place] [address] Segundo Albright MD [address] [place] [id number] [email or web address] Social History Tobacco Use Types Packs/Day Years [...] [facility] [address] [place] [address] Nick Quinn MD 22 [facility], 2nd [place] [address] documented as of this encounter Visit Diagnoses Not on filedocumented in this encounter Care Teams Color Receiver Relationship Specialty Start Date End Date Segundo Albright MD [address] [place] [address] [email or web address] PCP - General 06/11/17 10/25/22 Yissel Wells PA [address] [place] [address] [email or web address] PCP - General Physician Building Cleaner 10/26/22 03/19/25 Sasha Mejia PA [address] [place] [address] PCP - General Physician Building Cleaner 03/20/25 documented as of this encounter Additional Source Comments The information contained in this document represents components of the legal health record. It is not the complete legal health record.[facility]
--- OUTSIDE RECORDS SUMMARY | 2025-04-02 10:33 | XMS_ITS | Patient Health Record ---
Author Organization [facility] Address [address] [place] [address] Care Team Providers Care Microbiology Director Name Role Phone ZuleymaLazaro Unavailable [phone] Zuleyma MenendezLazaro Unavailable Unavailable Allergies Allergen (clinical drug ingredient) Drug/Non Drug Allergy documented on EMR Reaction Allergy Type Onset Date Status codeine Codeine Unknown Drug Allergy Active Reason For Referral No Information Medications Medication SIG (Take, Route, Frequency, Duration) Notes Start Date End Date Status Meloxicam 7.5 MG Oral; Duration: 7 Days Active predniSONE 20 MG Oral; Duration: 5 Days Active Verapamil HCl ER 240 MG Oral; Duration: 90 Days Active metFORMIN HCl ER 500 MG Oral; Duration: 90 Days Active Testosterone 20.25 MG/ACT (1.62%) APPLY 4 PUMPS OF GEL DAILY TOPICALLY Transdermal; Duration: 30 Days Active Ezetimibe 10 MG Oral; Duration: 90 Days Active Problems Problem Type SNOMED Code ICD Code Onset Dates Problem Status W/U Status Risk Notes Problem Osteoarthritis of knee (643129411) Unilateral primary osteoarthritis, left knee (M17.12) Active confirmed Problem Pain of left knee region (finding) (833931532634340) Left knee pain, unspecified chronicity (M25.562) Active confirmed Problem Internal derangement of left knee (61974292807067804 ) 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) Active confirmed Vital Signs Height-cm 175.26 cm 02/18/2025 Weight-kg 103.42 kg 02/18/2025 Height 69 in 02/18/2025 Weight 228 lbs 02/18/2025 BMI 33.67 kg/m2 02/18/2025 Encounters Encounter Location Date Provider Diagnosis [facility] [address] [place] [address] 02/18/2025 Lazaro Amor Left knee pain, unspecified chronicity M25.562 ; Internal derangement of left knee M23.92 and Unilateral primary osteoarthritis, left knee M17.12 Assessments Encounter Date Diagnosis (ICD Code) Assessment Notes Treatment Notes Treatment Clinical Notes Section Notes 02/18/2025 Left knee pain, unspecified chronicity (ICD-10 - M25.562) 02/18/2025 Internal derangement of left knee (ICD-10 - M23.92) 02/18/2025 Unilateral primary osteoarthritis, left knee (ICD-10 - M17.12) 02/18/2025 Other I have reviewed my findings. All questions have been answered. They are agreeable with plan. Plan Of Treatment Pending Test Test Name Order Date MRI : Knee, left without contrast 2024 X ray : Knee, left 3 view 02/18/2025 Insurance Providers Payer Name Payer Address Payer Phone Subscriber Number Group Number Insured Name Patient Relationship to Insured Coverage Start Date Coverage End Date Medicare Part B [address] [address] [place] [address] [phone] [id number] TIANNA OLIVERA Self - patient is the insured [facility] [address] [place] [address] [phone] [id number] TIANNA OLIVERA Self - patient is the insured Medical (General) History Medical History History ICD Code Diabetes Surgical History Surgery Date(Month/Year) skin biopsy Hospitalization History 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
--- OUTSIDE RECORDS SUMMARY | 2025-04-02 10:33 | XMS_ITS | Encounter Summary ---
Author Organization [facility] Address [address] [place] [address] [place] [address] Phone Care Team Providers Care Swine Genetics Researcher Name Role Phone Segundo Albright MD Primary Care Provider Segundo Albright MD Primary Care Provider Yissel Wells Primary Care Provider Sasha Mejia Primary Care Provider Encounter Details Date Type Department Care Team (Late st Contact Info) Description 01/29/2017 Procedure Pass [facility] [address] [place] [address] Social History Tobacco Use Types Packs/Day Years [...] [facility] [address] [place] [address] Nick Quinn MD 22 [facility], 2nd [place] [address] documented as of this encounter Visit Diagnoses Not on filedocumented in this encounter Care Teams Swine Genetics Researcher Relationship Specialty Start Date End Date Segundo Albright MD [address] [place] [address] [email or web address] PCP - General Family Medicine 01/02/17 06/10/17 Segundo Albright MD [address] [place] [address] [email or web address] - General 06/11/17 10/25/22 Yissel Wells PA [address] [place] [address] [email or web address] PCP - General Physician Manager Lighting 10/26/22 03/19/25 Sasha Mejia PA [address] [place] [phone] PCP - General Physician Manager Lighting 03/20/25 documented as of this encounter Additional Source Comments The information contained in this document represents components of the legal health record. It is not the complete legal health record.[facility]
--- OUTSIDE RECORDS SUMMARY | 2025-04-02 10:33 | XMS_ITS | Encounter Summary ---
Author Organization [facility] Address [address] [facility] [address] [place] [address] Phone Care Team Providers Care Messaging Architect Name Role Phone Segundo Albright MD Primary Care Provider Yissel Wells Primary Care Provider Sasha Mejia Primary Care Provider Encounter Details Date Type Department Care Team (Latest Contact Info) Description 04/20/2019 Transcribe Orders [facility] [address] [place] [address] Segundo Albright MD [address] [place] [address] [email or web address] Type 2 diabetes mellitus without complication, unspecified whether bed bug exterminator insulin use (Primary Dx) Social History Tobacco [...] EDT Telemedicine - audio only [facility] [address] [place] [address] Nick Quinn MD 22 [facility], 2nd [place] [address] documented as of this encounter Results * (ABNORMAL) Hemoglobin A1c (06/13/2019 11:45 AM EST) HEMOGLOBIN A1C 7.1(H) 4.3 - 5.8 % [facility] Blood 06/13/2019 11:4 5 AM EST 06/13/2019 11:48 AM EST Segundo Albright MD LAB BLOOD ORDERABLES Final Resu lt Performing Organization Address [facility] Co de Phone Number [address] [address] * Alanine aminotransferase (ALT) (06/13/2019 11:45 AM EST) ALT 23 0 - 40 U/L [facility] Blood 06/13/2019 11:4 5 AM EST 06/13/2019 11:48 AM EST Segundo Albright MD LAB BLOOD ORDERABLES Final Resu lt Performing Organization Address [facility] Co de Phone Number [address] [address] documented in this encounter Visit Diagnoses Diagnosis Type 2 diabetes mellitus without complication, unspecified whether bed bug exterminator insulin use- Primary documented in this encounter Care Teams Messaging Architect Relationship Specialty Start Date End Date Segundo Albright MD [address] [place] [address] [email or web address] PCP - General 06/11/17 10/25/22 Yissel Wells PA [address] [place] [address] [email or web address] PCP - General Physician Seals Engraver 10/26/22 03/19/25 Sasha Mejia PA [address] [place] [phone] PCP - General Physician Seals Engraver 03/20/25 documented as of this encounter Additional Source Comments The information contained in this document represents components of the legal health record. It is not the complete legal health record.[facility]
--- OUTSIDE RECORDS SUMMARY | 2025-04-02 10:34 | XMS_ITS | Encounter Summary ---
Author Organization [facility] Address [address] [facility] [address] [place] [address] Phone Care Team Providers Care Process Engineer Name Role Phone Sasha Mejia Primary Care Provider [phone] Reason for Visit * Reason Onset Date Comments Appointment 03/22/2025 Medication Management 03/22/2025 Encounter Details Date Type Department Care Team ([facility] st Contact Info) Description 03/22/2025 Telephone [facility] Sp[facility] Medicine 22 [place] [address] Nick Quinn MD 22 [facility], 2nd [place] [address] [email or web address] Appointment; Medication Management Social History Tobacco Use Types Packs/Day Years [...] as of this encounter Progress Notes * Cameron Wilson - 03/22/2025 11:45 AM EDT Patient booked for visit tomorrow, please advise on any suggestions if necessary. * Roselyn Harvey - 03/22/2025 8:27 AM EDT Pt called in I booked him for a F/u Lumbar radiculopathy on 03/23/2025. Pt was seen [facility] 03/20/2025 pt stated that he is running out of pain meds and looking for advise on what to do till the appt. Pt stated his is to able to walk currently Central Support Venetian Blind Worker (Please do not reply to this user; this inbox is not monitored.) Thank you. documented in this encounter Plan of Treatment Upcoming Encounters Date Type Department Care Team (Late st Contact Info) Description 04/16/2025 10:40 AM EDT Telemedicine - audio only [facility] Sp[facility] Medicine [address] [place] [address] Nick Quinn MD 22 [facility], 2nd [place] [address] [email or web address] documented as of this encounter Visit Diagnoses Not on filedocumented in this encounter Care Teams Process Engineer Relationship Specialty Start Date End Date Sasha Mejia PA [address] [place] [address] PCP - General Physician Polygraph Technician 03/20/25 documented as of this encounter Additional Source Comments The information contained in this document represents components of the legal health record. It is not the complete legal health record.[facility]
--- OUTSIDE RECORDS SUMMARY | 2025-04-02 10:34 | XMS_ITS | Encounter Summary ---
Author Organization [facility] Address [address] [facility] [address] [place] [address] Phone Care Team Providers Care Doll Wig Maker Name Role Phone aSsha Mejia Primary Care Provider [phone] Encounter Details Date Type Department Care Team ([facility] st Contact Info) Description 04/01/2025 Telephone [facility] 22 [place] [address] Cameron Wilson 22 [place] [address] [email or web address] Social History Tobacco Use Types Packs/Day Years [...] encounter Progress Notes * Cameron Wilson - 04/01/2025 8:30 AM EDT Images from the original note were not included. Rx Care Gap Status - Instructions for Clinical Staff (prescriber discretion applies): > Mismatch review guide > No future appt: Please schedule if appropriate. > Check PDMP for all controlled medication requests. Controlled Medication Refill Last filled on: Date of last urine toxicology screen: N/A Controlled Substance Agreement completed on: 03/25/2025 Visit Info Last visit: 03/23/2025 Nick Quinn MD - Spine Surgery [facility] > Requested f/u: Not specified Upcoming visit: 04/16/2025 ACTIONS TAKEN BY Cameron Wilson - Criteria met. - Checked PDMP/[place]. Opioid Rx Protocol - oxycodone HClPRESCRIBER ATTENTION REQUIRED - Please evaluate Controlled substance renewals are at prescriber discretion. Pain mgmt profile/toxicology (urine/saliva) may be considered annually or more frequently if indicated. In-person visit in past 2 years: Yes (Last in-person visit: 03/23/2025) Visit in past 4 months: Yes No benzodiazepine on medication list Opioid agreement on file: Yes Pain management profile/toxicology in past 12 months: No documented in this encounter Plan of Treatment Upcoming Encounters Date Type Department Care Team (Late st Contact Info) Description 04/16/2025 10:40 AM EDT Telemedicine - audio only [facility] Spine Medicine [address] [place] [address] Nick Quinn MD [address] [place] [address], 2nd [place] [address] [email or web address] documented as of this encounter Visit Diagnoses Diagnosis Lumbar radiculitis documented in this encounter Care Teams Doll Wig Maker Relationship Specialty Start Date End Date Sasha Mejia PA [address] [place] [phone] PCP - General Physician Large Sheetfed Press Operator 03/20/25 documented as of this encounter Additional Source Comments The information contained in this document represents components of the legal health record. It is not the complete legal health record.[facility]
--- OUTSIDE RECORDS SUMMARY | 2025-04-02 10:34 | XMS_ITS | Encounter Summary ---
Author Organization [facility] Address [address] [place] [address] [place] [address] Phone Care Team Providers Care Eyeglass Maker Name Role Phone Sasha Mejia Primary Care Provider [phone] Encounter Details Date Type Department Care Team (Late st Contact Info) Description 03/20/2025 Procedure Pass [facility], [address] [address] Social History Tobacco Use Types Packs/Day Years [...] No Risk Indicated 03/20/2025 10:40 AM Ele Mason RN * [place] Suicide Severity Rating Scale (Screener/Recent Self-Report) Question Answer Date of Assessment Author 1. Wish to be (Past 1 Month) No 025 10:40 AM Ele Mason RN 2. Non-Specific Active Suici edgard Thoughts (Past 1 Month) No 03/20/2025 10:40 AM Ele Mason, RN 6. Suicidal Behavior (Lifetime) No 10:40 AM Ele Mason, KATHERINE documented as of this encounter Plan of Treatment Upcoming Encounters Date Type Department Care Team (Late st Contact Info) Description 04/16/2025 10:40 AM EDT Telemedicine - audio only [facility] Spine Medicine [address] [place] [address] Nick Quinn MD [address] [place] [address] [address] [email or web address] documented as of this encounter Visit Diagnoses Not on filedocumented in this encounter Care Teams Eyeglass Maker Relationship Specialty Start Date End Date Sasha Mejia PA [address] [place] [phone] PCP - General Physician Director On Air 03/20/25 documented as of this encounter Additional Source Comments The information contained in this document represents components of the legal health record. It is not the complete legal health record.[facility]
== END 2025-04-02 11:23 | disposition home or self-care (01) ==
PROVIDERS: Referring Provider Physical Medicine & Rehabilitation; Visit Provider Physician Assistant
DX: M51.26 Other intervertebral disc displacement, lumbar region (principal)
CPT/HCPCS: 99204

== ENCOUNTER → 2025-04-02 09:47 | Outpatient (BNVA) | payer MEDICARE, SELFPAY | PROVIDERS: Referring Provider Physical Medicine & Rehabilitation; Visit Provider Physician Assistant | DX: M51.26 Other intervertebral disc displacement, lumbar region (principal) | CPT/HCPCS: 99202 ==

== ENCOUNTER → 2025-04-13 13:50 | Outpatient (BNV) | payer MEDICARE, OTHER, SELFPAY | PROVIDERS: PCP Student in an Organized Health Care Education/Training Program; Visit Provider Internal Medicine Cardiovascular Disease | DX: R94.31 Abnormal electrocardiogram [ECG] [EKG] (principal); R00.2 Palpitations | CPT/HCPCS: 93010 ==

== ENCOUNTER 2025-04-15 07:38 | Day surgery (SDC) | payer MEDICARE, OTHER, SELFPAY ==
--- OUTSIDE RECORDS SUMMARY | 2015-05-22 | XMS_ITS | Encounter Summary ---
Author Organization [facility] Address [address] [place] [address] Phone Care Team Providers Care Wired Music Operator Name Role Phone Unavailable Primary Care Provider Unavailabl e Reason for Visit * MRI/CAT Scan - Closed Specialty Diagnoses / Procedures Referred By Alexandra del castillo Referred To Contact Procedures MRI Lower Extremity Outside (No Interpretation) Max Wren PA-C [address] [place] [address] Phone: tel: fax: mailto:[email or web address] Referral ID Status Reason Start Date Expiration Date Visits Re quested Visits Authorized [id number] Closed 01/29/2017 01/29/2018 1 1 Encounter Details Date Type Department Care Team (Late st Contact Info) Description 05/22/2015 Hospital Encounter [facility] [address] [place] [address] Max Wren PA-C [address] [place] [address] [email or web address] Social History Tobacco Use Types Packs/Day Years [...] 03/20/2025 10:40 AM Ele Mason, KATHERINE * [place] Suicide Severity Rating Scale (Screener/Recent Self-Report) Question [...] 10:40 AM EDT Telemedicine - audio only [facility] Spine Medicine [address] [place] [address] Nick Quinn MD 22 [facility], 2nd [place] [address] [email or web address] documented as of this encounter Procedures Procedure Name Priority Date/Time Associated Diagnosis Comments MRI LOWER EXTREMITY OUTSIDE (NO INTERPRETATION) Routine 05/22/2015 12:00 AM EDT documented in this encounter Results * MRI Lower Extremity Outside (No Interpretation) (05/22/2015 12:00 AM EDT) Narrative [facility] IMG INTERFACES - 01/29/2017 9:33 AM EDT This study is for PACS storage only and not for interpretation. us Max Wren PA-C IMG OUTSIDE IMAGING W/OUT IN TERPRETATION Final Result [facility]G INTERFACES documented in this encounter Visit Diagnoses Not on filedocumented in this encounter Additional Source Comments The information contained in this document represents components of the legal health record. It is not the complete legal health record.[facility]
--- OUTSIDE RECORDS SUMMARY | 2015-05-22 00:15 | XMS_ITS | Encounter Summary ---
Author Organization [facility] Address [address] [address] Phone Care Team Providers Care Warehouse Administrator Name Role Phone Unavailable Primary Care Provider Unavailabl e Reason for Visit * MRI/CAT Scan - Closed Specialty Diagnoses / Procedures Referred By Alexandra del castillo Referred To Contact Procedures MRI Lower Extremity Outside (No Interpretation) Max Wren PA-C [address] [place] [address] Phone: tel: fax: mailto:[email or web address] Referral ID Status Reason Start Date Expiration Date Visits Re quested Visits Authorized [id number] Closed 01/29/2017 01/29/2018 1 1 Encounter Details Date Type Department Care Team (Late st Contact Info) Description 05/22/2015 12:15 AM EDT Hospital Encounter [facility] General Imaging 55 [place] [address] Max Wren PA-C [address] [place] [address] [email or web address] Social History Tobacco Use Types Packs/Day Years [...] 10:40 AM EDT Ele Boston RN * [place] Suicide Severity Rating Scale (Screener/Recent Self-Report) Question Answer Date of Assessment Author 1. Wish to be (Past 1 Month) No 025 10:40 AM EDT Ele Boston, KATHERINE 2. Non-Specific Active Suici edgard Thoughts (Past 1 Month) No 03/20/2025 10:40 AM EDT Ele Boston RN 6. Suicidal Behavior (Lifetime) No 10:40 AM EDT Ele Boston, RN documented as of this encounter Plan of Treatment Upcoming Encounters Date Type Department Care Team (Late st Contact Info) Description 04/16/2025 10:40 AM EDT Telemedicine - audio only [facility] Spine Medicine [address] [place] [address] Nick Quinn MD [address] [place] [address], [address] [place] [address] [email or web address] documented as of this encounter Procedures Procedure Name Priority Date/Time Associated Diagnosis Comments MRI LOWER EXTREMITY OUTSIDE (NO INTERPRETATION) Routine 05/22/2015 12:15 AM EDT documented in this encounter Results * MRI Lower Extremity Outside (No Interpretation) (05/22/2015 12:15 AM EDT) Narrative [facility] [place] - 01/29/2017 9:33 AM EDT This study is for PACS storage only and not for interpretation. us Max Wren PA-C IMG OUTSIDE IMAGING W/OUT IN TERPRETATION Final Result [facility] documented in this encounter Visit Diagnoses Not on filedocumented in this encounter Additional Source Comments The information contained in this document represents components of the legal health record. It is not the complete legal health record.[facility]
--- OUTSIDE RECORDS SUMMARY | 2015-10-20 | XMS_ITS | Encounter Summary ---
Author Organization [facility] Address [address] [address] Phone Care Team Providers Care Hog Feeder Name Role Phone Unavailable Primary Care Provider Unavailabl e Encounter Details Date Type Department Care Team (Late st Contact Info) Description 10/20/2015 Hospital Encounter [facility] [address] [place] [address] Max Wren, PANikolas [address] [place] [address] Social History Tobacco Use Types Packs/Day Years [...] 10:40 AM EDT Ele Boston RN * [place] Suicide Severity Rating Scale (Screener/Recent Self-Report) Question [...] 10:40 AM EDT Telemedicine - audio only [facility] Spine Medicine [address] [place] [address] Nick Quinn MD 22 [facility], 2nd [place] [address] [email or web address] documented as of this encounter Procedures Procedure Name Priority Date/Time Associated Diagnosis Comments XR LOWER EXTREMITY OUTSIDE (NO INTERPRETATION) Routine 10/20/2015 12:00 AM EDT documented in this encounter Results * XR Lower Extremity Outside (No Interpretation) (10/20/2015 12:00 AM EDT) Narrative [facility] - 01/29/2017 9:28 AM EDT This study is for PACS storage only and not for interpretation. us Max Wren PA-C IMG OUTSIDE IMAGING W/OUT IN TERPRETATION Final Result [facility] documented in this encounter Visit Diagnoses Not on filedocumented in this encounter Additional Source Comments The information contained in this document represents components of the legal health record. It is not the complete legal health record.[facility]
--- OUTSIDE RECORDS SUMMARY | 2025-03-25 14:00 | XMS_ITS | Encounter Summary ---
Author Organization [facility] Address [address] [facility] [address] [place] [address] Phone Care Team Providers Care Formula Weigher Name Role Phone Sasha Mejia Primary Care Provider [phone] Encounter Details Date Type Department Care Team (Latest Contact Info) Description 03/25/2025 2:00 PM EDT Procedure visit [facility] Spine Medicine [address] [address] Annelise Quinn MD [address] [facility], 2nd [place] [address] [email or web address] Lumbar radiculitis (Primary Dx) Social History Tobacco Use Types Packs/Day Years [...] on file documented as of this encounter Progress Notes * Annelise Quinn MD - 03/25/2025 2:00 PM EDTAddended by: ANNELISE QUINN M.D. on: 03/25/2025 03:30 PM Modules accepted: Orders, Level of Service * Annelise Quinn MD - 03/25/2025 2:00 PM EDT LUMBAR EPIDURAL INDICATION: Lumbar radiculopathy. SIDE/LEVEL: left CONSENT: Informed consent was obtained. PREP: The patient was positioned prone on the radiology procedure table. The low back was prepped and draped in the usual fashion. PROCEDURE: Under fluoroscopic guidance, a 22 gauge 3.5 inch spinal needle was advanced percutaneously approaching the/each pedicle. After confirming proper position at the 6 o'clock position and confirming proper position on the lateral view, 1cc of Omnipaque 300 contrast was but kept going into the disc space instead of epidural flow. Therefore the procedure was aborted without injecting steroid. 30 G IM toradol was injected in the left triceps area and prophylactic Keflex given for 5 days. Surgeon will be contacted to expedite surgery. The patient was observed for 10-15 minutes and then discharged with post procedure instructions. FLUOROSCOPY: Radiation exposure and exposure time documented in the Dose Summary Folder. FOLLOW UP: The patient is to call immediately if there are any questions, concerns or adverse reactions. The patient is to follow up with me in 10-14 days in the office. documented in this encounter Plan of Treatment Upcoming Encounters Date Type Department Care Team (Late st Contact Info) Description 04/16/2025 10:40 AM EDT Telemedicine - audio only [facility] Spine Medicine [address] [place] [address] Annelise Quinn MD [address] [place] [address], 2nd [place] [address] [email or web address] documented as of this encounter Visit Diagnoses Diagnosis Lumbar radiculitis- Primary documented in this encounter Administered Medications Inactive Administered Medications - up to 3 most recent administrations Medication Order MAR Action Action Date Dose Rate Site dexAMETHasone (PF) (DECADRON) injection 20 mg 20 mg, See Administration Instructions, Once, On Marina 03/25/25 at 1445, For 1 doseIndications:Lumbar radiculitis Given 03/25/2025 1:52 PM EDT 20 mg iohexoL (OMNIPAQUE-300) 300 mg iodine/mL solution 2 mL 2 mL, Intra-articular, Once as needed, imaging, Starting on Marina 03/25/25 at 1351, For 1 dose, No oral admin.Indications:Lumbar radiculitis Given 03/25/2025 1:53 PM EDT 2 mL documented in this encounter Care Teams Formula Weigher Relationship Specialty Start Date End Date Sasha Mejia PA [address] [place] [address] PCP - General Physician Photography Instructor 03/20/25 documented as of this encounter Additional Source Comments The information contained in this document represents components of the legal health record. It is not the complete legal health record.[facility]
--- OUTSIDE RECORDS SUMMARY | 2025-04-06 16:08 | XMS_ITS | Encounter Summary ---
Author Organization [facility] Address [address] [place] [address] Phone Care Team Providers Care Cutting Supervisor Name Role Phone Yissel Wells Primary Care Provider Sasha Mejia Primary Care Provider [phone] Reason for Visit * Reason Onset Date Comments Establish Care 03/19/2025 Encounter Details Date Type Department Care Team (Late st Contact Info) Description 03/19/2025 Telephone [facility] Spine Medicine [address] [place] [address] Yissel Wells PA [address] [place] [address] [email or web address] Establish Care Social History Tobacco Use Types [...] your housing situation today? I have julia roblse 03/20/2025 How many times have you move [...] 03/20/2025 10:40 AM Ele Mason, KATHERINE * [place] Suicide Severity Rating Scale (Screener/Recent Self-Report) Question [...] receipt of the faxed referral Central Support Signal Fitter (Please do not reply to this user; this inbox is not monitored.) Thank you. * MitchellKal - 03/19/2025 9:49 AM EDT Pt called in, said a referral was faxed from [facility] this morning. Please contact and advise claudia appt. Central Support Signal Fitter (Please do not reply to this user; this inbox is not monitored.) Thank you. documented in this encounter Plan of Treatment Upcoming Encounters Date Type Department Care Team (Late st Contact Info) Description 04/16/2025 10:40 AM EDT Telemedicine - audio only [facility] Spine Medicine [address] [place] [address] Nick Quinn MD [address] [place] [address], [address] [place] [address] [email or web address] documented as of this encounter Visit Diagnoses Not on filedocumented in this encounter Care Teams Cutting Supervisor Relationship Specialty Start Date End Date Yissel Wells PA [address] [place] [phone] [email or web address] PCP - General Physician Plastic Printer 10/26/22 03/19/25 Sasha Mejia PA [address] [place] [address] PCP - General Physician Plastic Printer 03/20/25 documented as of this encounter Additional Source Comments The information contained in this document represents components of the legal health record. It is not the complete legal health record.[facility]
--- OUTSIDE RECORDS SUMMARY | 2025-04-06 16:08 | XMS_ITS | Encounter Summary ---
Author Organization [facility] Address [address] [place] [address] [place] [address] Phone Care Team Providers Care Die Casting Machine Operator Name Role Phone Segundo Albright MD Primary Care Provider Yissel Wells Primary Care Provider [phone] Sasha Mejia Primary Care Provider Encounter Details Date Type Department Care Team (Latest Contact Info) Description 09/06/2021 Transcribe Orders [facility] [address] [place] [address] Yissel Wells PA [address] [place] [phone] [email or web address] Type 2 diabetes mellitus without complication, unspecified whether mcc insulin use (Primary Dx); Elevated liver function [...] AM EDT Telemedicine - audio only [facility] Medicine [address] [place] [address] Nick Quinn MD 22 [facility], 2nd [place] [address] documented as of this encounter Results * (ABNORMAL) Lipid panel (09/07/2021 10:04 AM EST) HDL 43 mg/dL [facility] Comment: Interpretation <40 mg/dL: Low HDL cholesterol (major risk factor for CHD) Greater than or equal to 60 mg/dL: High HDL cholesterol ( negative risk factor for CHD) HDL - cholesterol is affected by a number of factors, e.g. smoking, excerise, hormones, sex and age. CHOLESTEROL 245(H) 0 - 240 mg/dL [facility] TRIGLYCERIDES 230(H) 30 - 160 mg/dL [facility] LDL 156(H) 50 - 129 mg/dL [facility] Comment: LDL levels in terms of risk for coronary heart disease: <100 mg/dL: Optimal 100-129 mg/dL: Near or above optimal 130-159 mg/dL: Borderline high 160-189 mg/dL: High >190 mg/dL: Very High CARDIAC RISK RATIO 5.7(H) 3.4 - 5.0 [facility] Blood 09/07/2021 10:0 4 AM EST 09/07/2021 10:12 AM EST Yissel CRAIG LAB BLOOD ORDERABLES Final R [facility] Performing Organization Address City/[facility] Co de Phone Number [address] [address] * (ABNORMAL) Hemoglobin A1c (09/07/2021 10:04 AM EST) HEMOGLOBIN A1C 6.0(H) 4.3 - 5.8 % [facility] Blood 09/07/2021 10:0 4 AM EST 09/07/2021 10:13 AM EST Yissel CRAIG LAB BLOOD ORDERABLES Final R esult Performing Organization Address City/[facility]/ZIP Co de Phone Number [address] [address] * (ABNORMAL) Comprehensive metabolic panel (09/07/2021 10:04 AM EST) SODIUM 135 133 - 146 mmol/L [facility] POTASSIUM 4.5 3.3 - 5.1 mmol/L [facility] CHLORIDE 101 96 - 108 mmol/L [facility] CO2 21 21 - 35 mmol/L [facility] BUN 16 6 - 19 mg/dL [facility] CREATININE 1.00 0.5 - 1.5 mg/dL [facility] GLUCOSE 123(H) 70 - 99 mg/dL [facility] ALBUMIN 4.7 3.9 - 4.8 g/dL [facility] TOTAL PROTEIN 7.0 6.5 - 8.0 g/dL [facility] CALCIUM 9.6 8.4 - 10.3 mg/dL [facility] ALKALINE PHOSPHATASE 57 39 - 117 U/L [facility] TOTAL BILIRUBIN 0.5 0.0 - 1.2 mg/dL [facility] AST 28 0 - 37 U/L [facility] ALT 25 0 - 40 U/L [facility] GLOBULIN 2.3 1 - 4.8 g/dL [facility] EGFR 85 >59 mL/min/1.7 3m2 [facility] Comment:Estimated glomerular filtration rate calculated using the CKD-EPI refit equation. ANION GAP 18 10 - 20 mmol/L [facility] Blood 09/07/2021 10:0 4 AM EST 09/07/2021 10:12 AM EST us Yissel CRAIG LAB BLOOD ORDERABLES Final R esult [facility] [address] [place] [address] * (ABNORMAL) Microalbumin/creatinine ratio, random urine (09/07/2021 10:04 AM EST) URINE MICROALBUMIN 14.2(H) 0 - 2.3 mg/dL [facility] URINE CREATININE 515 mg/dL [facility] MICROALB/CRE RATIO 27.6(H) 0 - 20 mg/g Cre [facility] Urine (Urine) 09/07/2021 10: 04 AM EST 09/07/2021 10:17 AM EST Yissel CRAIG URINE ORDERABLES Final Resul t Performing Organization Address [facility]/ZIP Co de Phone Number [facility] [address] [place] [address] * PSA, free and total (09/07/2021 10:04 AM EST) PSA, TOTAL 0.60 <=4.5 ng/mL [facility] FREE PSA 0.3 ng/mL [facility] LAB MED/PATH SUPERIOR FREE/TOT PSA RATIO SEE NOTE ratio [facility] LAB MED/PATH SUPERIOR Comment: (NOTE) Ratio not [...] ORDERABLES Final R esult Performing Organization Address City/[facility]/ZIP Co de Phone Number [facility] LAB MED/PATH [address] [place] [address] * CBC (09/07/2021 10:04 AM EST) WBC 6.99 4.00 - 11.00 K/uL [facility] RBC 5.00 3.90 - 5.69 M/uL [facility] HGB 15.5 12.4 - 17.3 g/dL [facility] HCT 43.7 37.0 - 51.0 % [facility] PLT 224 140 - 430 K/uL [facility] MCV 87.4 78.0 - 97.0 fL [facility] MCH 31.0 25.0 - 33.0 pg [facility] MCHC 35.5 32.0 - 36.0 g/dL [facility] RDW 12.9 11.0 - 15.0 % [facility] MPV 10.2 8.4 - 12.8 fl [facility] NRBC 0.00 0 /100 WBCs [facility] ABSOLUTE NRBC 0.00 0 K/uL [facility] Blood 09/07/2021 10:0 4 AM EST 09/07/2021 10:12 AM EST us Yissel CRAIG LAB BLOOD ORDERABLES Final R esult Performing Organization Address City/State/[facility] Co de Phone Number [facility] [address] [place] [address] documented in this encounter Visit Diagnoses Diagnosis Type 2 diabetes mellitus without complication, unspecified whether joint terminal attack controller insulin use- Primary Elevated liver function tests Other abnormal blood chemistry documented in this encounter Care Teams Die Casting Machine Operator Relationship Specialty Start Date End Date Segundo Albright MD [address] [place] [address] [email or web address] PCP - General 06/11/17 10/25/22 Yissel Wells PA [address] [place] [address] [email or web address] PCP - General Physician Scene Shifter 10/26/22 03/19/25 Sasha Mejia PA [address] [place] [phone] PCP - General Physician Scene Shifter 03/20/25 documented as of this encounter Additional Source Comments The information contained in this document represents components of the legal health record. It is not the complete legal health record.[facility]
--- OUTSIDE RECORDS SUMMARY | 2025-04-06 16:08 | XMS_ITS | Encounter Summary ---
Author Organization [facility] Address [address] [place] [phone] Phone Care Team Providers Care Coo Name Role Phone Yissel Wells Primary Care Provider Sasha Mejia Primary Care Provider [phone] Encounter Details Date Type Department Care Team (Latest Contact Info) Description 07/27/2024 Transcribe Orders Virtual Department [address] [place] [address] Britton Perez PA [address] [place] [address] Dysphagia, unspecified type (Primary Dx) Social History [...] 10:40 AM EDT Telemedicine - audio only [facility] Spine Medicine [address] [place] [address] Nick Quinn MD 22 [facility], 2nd [place] [address] [email or web address] documented as of this encounter Results * [...] edited the report originally created by Benjamin Neito. Narrative 08/19/2024 3:49 PM EST [place] MODIFIED [...] type documented in this encounter Care Teams Coo Relationship Specialty Start Date End Date Yissel Wells PA [address] [place] [phone] [email or web address] PCP - General Physician Security Administrator 10/26/22 03/19/25 Sasha Mejia PA [address] [place] [address] PCP - General Physician Security Administrator 8/16/25 documented as of this encounter Additional Source Comments The information contained in this document represents components of the legal health record. It is not the complete legal health record.[facility]
--- OUTSIDE RECORDS SUMMARY | 2025-04-06 16:08 | XMS_ITS | Encounter Summary ---
Author Organization [facility] Address [address] [place] [address] Phone Care Team Providers Care Haunted History Tour Guide Name Role Phone Segundo Albright MD Primary Care Provider Yissel Wells Primary Care Provider Sasha Mejia Primary Care Provider Encounter Details Date Type Department Care Team (Late st Contact Info) Description 09/06/2021 Transcribe Orders [facility] [address] [place] [address] Segundo Albright MD [address] [place] [phone] [email or web address] Social History Tobacco Use Types Packs/Day Years [...] [facility] [address] [place] [address] Nick Quinn MD 22 [facility], 2nd [place] [address] documented as of this encounter Visit Diagnoses Not on filedocumented in this encounter Care Teams Haunted History Tour Guide Relationship Specialty Start Date End Date Segundo Albright MD [address] [place] [address] [email or web address] PCP - General 06/11/17 10/25/22 Yissel Wells PA [address] [place] [address] [email or web address] PCP - General Physician Pie Cutter 10/26/22 03/19/25 Sasha Mejia PA [address] [place] [phone] PCP - General Physician Pie Cutter 03/20/25 documented as of this encounter Additional Source Comments The information contained in this document represents components of the legal health record. It is not the complete legal health record.[facility]
--- OUTSIDE RECORDS SUMMARY | 2025-04-06 16:08 | XMS_ITS | Encounter Summary ---
Author Organization [facility] Address [address] [facility] [address] [place] [address] Phone Care Team Providers Care Unit Nurse Name Role Phone Yissel Wells Primary Care Provider [phone] Sasha Mejia Primary Care Provider [phone] Encounter Details Date Type Department Care Team (Late st Contact Info) Description 01/14/2025 Transcribe Orders [facility] Specimen Processing [address] [place] [address] Elizabeth Roblero MD [address] [place] [address] Impetigo (Primary Dx) Social History Tobacco Use [...] 10:40 AM EDT Telemedicine - audio only [facility] Spine Medicine [address] [place] [address] Nick Quinn MD 22 [facility], 2nd [place] [address] [email or web address] documented as of this encounter Results * Wound culture/smear (01/14/2025 3:52 PM EDT) Special Requests None 01/14/2025 3:52 PM EDT [facility] GRAM STAIN NO ORGANISMS SEEN 01/15/2025 8:14 AM EDT [facility] Wound Culture/Smear NO GROWTH 48HRS 01/16/2025 10:44 AM EDT [facility] Other (Nasal) 01/14/2025 3:5 2 PM EDT 01/14/2025 3:53 PM EDT Comment:LEFT NASAL ALAR GROO VE us Elizabeth Roblero MD MICROBIOLOGY - GENERAL SHAUNNA FERNANDEZ Final Result [facility] [address] [place] [address] documented in this encounter Visit Diagnoses Diagnosis Impetigo- Primary documented in this encounter Care Teams Unit Nurse Relationship Specialty Start Date End Date Yissel Wells PA [address] [place] [address] [email or web address] PCP - General Physician Yarn Wrapper 10/26/22 03/19/25 Sasha Mejia PA [address] [place] [address] PCP - General Physician Yarn Wrapper 03/20/25 documented as of this encounter Additional Source Comments The information contained in this document represents components of the legal health record. It is not the complete legal health record.[facility]
--- OUTSIDE RECORDS SUMMARY | 2025-04-06 16:08 | XMS_ITS | Encounter Summary ---
Author Organization [facility] Address [address] [place] [address] Phone Care Team Providers Care Admission Liaison Name Role Phone Segundo Albright MD Primary Care Provider [phone] Yissel Wells Primary Care Provider Sasha Mejia Primary Care Provider Encounter Details Date Type Department Care Team (Latest Contact Info) Description 07/10/2019 Transcribe Orders [facility] [address] [place] [address] Yissel Wells PA [address] [place] [address] [email or web address] Type 2 diabetes mellitus without complication, unspecified whether halfway insulin use (Primary Dx) Social History Tobacco [...] EDT Telemedicine - audio only Jean Carlos [facility] [address] [place] [address] Nick Quinn MD 22 [facility], 2nd [place] [address] documented as of this encounter Visit Diagnoses Diagnosis Type 2 diabetes mellitus without complication, unspecified whether halfway insulin use- Primary documented in this encounter Care Teams Admission Liaison Relationship Specialty Start Date End Date Segundo Albright MD [address] [place] [address] [email or web address] PCP - General 06/11/17 10/25/22 Yissel Wells PA [address] [place] [address] [email or web address] PCP - General Physician Photolithographer 10/26/22 03/19/25 Sasha Mejia PA [address] [place] [address] PCP - General Physician Photolithographer 03/20/25 documented as of this encounter Additional Source Comments The information contained in this document represents components of the legal health record. It is not the complete legal health record.[facility]
--- OUTSIDE RECORDS SUMMARY | 2025-04-06 16:08 | XMS_ITS | Encounter Summary ---
Author Organization [facility] Address [address] [place] [address] [place] [address] Phone Care Team Providers Care Thermodynamic Physicist Name Role Phone Segundo Albright MD Primary Care Provider Yissel Wells Primary Care Provider Sasha Mejia Primary Care Provider Encounter Details Date Type Department Care Team (Latest Contact Info) Description 09/06/2021 Transcribe Orders [facility] [address] [place] [address] Vanna Alvarado, PA-C [facility], [address] [place] [address] [email or web address] Testicular hypofunction (Primary Dx) Social History Tobacco [...] AM EDT Telemedicine - audio only [facility] [address] [place] [address] Nick Quinn MD 22 [facility], 2nd [place] [address] documented as of this encounter Results * (ABNORMAL) Testosterone, total and free (09/07/2021 10:04 AM EST) FREE TESTOSTERONE 45.8(H) 3.67 - 13.9 ng/dL [facility] Comment: (NOTE) ADDITIONAL INFORMATION Testing performed by [facility]. This test was developed and its performance characteristics determined by [facility] in a manner consistent with CLIA requirements. This test has not been cleared or approved by the U.S. Food and Drug Administration. TESTOSTERONE, TOTAL 1,090(H) 240 - 950 ng/dL [facility] Comment: (NOTE) ADDITIONAL INFORMATION Testing performed by Liquid Chromatography-Tandem Mass Spectrometry (LC-MS/MS). This test was developed and its performance characteristics determined by [facility] in a manner consistent with CLIA requirements. This test has not been cleared or approved by the U.S. Food and Drug Administration. Blood 09/07/2021 10:0 4 AM EST 09/07/2021 10:12 AM EST us Vanna Alvarado PA-C LAB BLOOD ORDERABLES Final Res ult [facility] [address] [place] [address] documented in this encounter Visit Diagnoses Diagnosis Testicular hypofunction- Primary Other testicular hypofunction documented in this encounter Care Teams Thermodynamic Physicist Relationship Specialty Start Date End Date Segundo Albright MD [address] [place] [address] [email or web address] PCP - General 06/11/17 10/25/22 Yissel Wells PA [address] [place] [address] [email or web address] PCP - General Physician Assistance Coordinator 10/26/22 03/19/25 Sasha Mejia PA [address] [place] [address] PCP - General Physician Assistance Coordinator 03/20/25 documented as of this encounter Additional Source Comments The information contained in this document represents components of the legal health record. It is not the complete legal health record.[facility]
--- OUTSIDE RECORDS SUMMARY | 2025-04-06 16:08 | XMS_ITS | Encounter Summary ---
Author Organization [facility] Address [address] [place] [address] Phone Care Team Providers Care Chief Psychologist Name Role Phone Segundo Albright MD Primary Care Provider Yissel Wells Primary Care Provider Sasha Mejia Primary Care Provider [phone] Encounter Details Date Type Department Care Team (Late st Contact Info) Description 08/18/2020 Procedure Pass [address] [place] [address] Social History Tobacco Use Types Packs/Day Years [...] EDT Telemedicine - audio only [facility] [address] [place] [address] Nick Quinn MD 22 [facility], 2nd [place] [address] [email or web address] documented as of this encounter Visit Diagnoses Not on filedocumented in this encounter Care Teams Chief Psychologist Relationship Specialty Start Date End Date Segundo Albright MD [address] [place] [address] [email or web address] PCP - General 06/11/17 10/25/22 Yissel Wells PA [address] [place] [address] [email or web address] PCP - General Physician Social Science Teacher 10/26/22 03/19/25 Sasha Mejia PA [address] [place] [address] PCP - General Physician Social Science Teacher 03/20/25 documented as of this encounter Additional Source Comments The information contained in this document represents components of the legal health record. It is not the complete legal health record.[facility]
--- OUTSIDE RECORDS SUMMARY | 2025-04-06 16:08 | XMS_ITS | Encounter Summary ---
Author Organization [facility] Address [address] [place] [address] Phone Care Team Providers Care Programming Coordinator Name Role Phone Segundo Albright MD Primary Care Provider [phone] Yissel Wells Primary Care Provider Sasha Mejia Primary Care Provider Encounter Details Date Type Department Care Team (Latest Contact Info) Description 06/10/2019 Transcribe Orders [facility] [address] [place] [address] Yissel Wells PA [address] [place] [address] [email or web address] om Type 2 diabetes mellitus without complication, unspecified whether fdc insulin use (Primary Dx) Social History Tobacco [...] EDT Telemedicine - audio only Jean Carlos [facility] [address] [place] [address] Nick Quinn MD 22 [facility], 2nd [place] [address] documented as of this encounter Results * Microalbumin/creatinine ratio, random urine (06/13/2019 11:54 AM EST) URINE MICROALBUMIN <1.2 0 - 2.3 mg/dL [facility] URINE CREATININE 230 mg/dL POSTING SPECIALIST [facility] MICROALB/CRE RATIO NOT CALCULATED 0 - 20 mg/g Cre [facility] Comment:due to Microalbumin <1.2 Urine (Urine) 06/13/2019 11: 54 AM EST 06/13/2019 11:58 AM EST us Yissel CRAIG URINE ORDERABLES Final Resul t Performing Organization Address City/State/[facility] Co de Phone Number [facility] [address] [place] [address] documented in this encounter Visit Diagnoses Diagnosis Type 2 diabetes mellitus without complication, unspecified whether termite treater insulin use- Primary documented in this encounter Care Teams Programming Coordinator Relationship Specialty Start Date End Date Segundo Albright MD [address] [place] [address] [email or web address] PCP - General 06/11/17 10/25/22 Yissel Wells PA [address] [place] [address] [email or web address] PCP - General Physician Boiler Riveter 10/26/22 03/19/25 Sasha Mejia PA [address] [place] [address] PCP - General Physician Boiler Riveter 03/20/25 documented as of this encounter Additional Source Comments The information contained in this document represents components of the legal health record. It is not the complete legal health record.[facility]
--- OUTSIDE RECORDS SUMMARY | 2025-04-06 16:08 | XMS_ITS | Encounter Summary ---
Author Organization [facility] Address [address] [place] [address] [place] [address] Phone Care Team Providers Care Collar Cutter Name Role Phone Segundo Albright MD Primary Care Provider Yissel Wells Primary Care Provider Sasha Mejia Primary Care Provider Encounter Details Date Type Department Care Team (Late st Contact Info) Description 12/02/2017 Transcribe Orders [facility] [address] [place] [address] Segundo Albright MD [address] [place] [address] [email or web address] Social History Tobacco Use Types Packs/Day Years [...] [facility] [address] [place] [address] Nick Quinn MD 22 [facility], 2nd [place] [address] documented as of this encounter Visit Diagnoses Not on filedocumented in this encounter Care Teams Collar Cutter Relationship Specialty Start Date End Date Segundo Albright MD 70 [place] [address] [email or web address] PCP - General 06/11/17 10/25/22 Yissel Wells PA [address] [place] [address] [email or web address] PCP - General Physician Supervisor Ovens 10/26/22 03/19/25 Sasha Mejia PA [address] [place] [address] PCP - General Physician Supervisor Ovens 03/20/25 documented as of this encounter Additional Source Comments The information contained in this document represents components of the legal health record. It is not the complete legal health record.[facility]
--- OUTSIDE RECORDS SUMMARY | 2025-04-06 16:08 | XMS_ITS | Encounter Summary ---
Author Organization [facility] Address [address] [place] [address] Phone Care Team Providers Care Life Science Teacher Name Role Phone Segundo Albright MD Primary Care Provider Yissel Wells Primary Care Provider Sasha Mejia Primary Care Provider Encounter Details Date Type Department Care Team (Latest Contact Info) Description 10/07/2019 Transcribe Orders [facility] [address] [place] [address] Yissel Wells PA [address] [place] [address] [email or web address] om Type 2 diabetes mellitus without complication, unspecified whether snf insulin use (Primary Dx) Social History Tobacco [...] EDT Telemedicine - audio only Jean Carlos [facility] [address] [place] [address] Nick Quinn MD 22 [facility], 2nd [place] [address] documented as of this encounter Visit Diagnoses Diagnosis Type 2 diabetes mellitus without complication, unspecified whether snf insulin use- Primary documented in this encounter Care Teams Life Science Teacher Relationship Specialty Start Date End Date Segundo Albright MD [address] [place] [address] [email or web address] PCP - General 06/11/17 10/25/22 Yissel Wells PA [address] [place] [address] [email or web address] PCP - General Physician Physical Integration Practitioner 10/26/22 03/19/25 Sasha Mejia PA [address] [place] [phone] PCP - General Physician Physical Integration Practitioner 03/20/25 documented as of this encounter Additional Source Comments The information contained in this document represents components of the legal health record. It is not the complete legal health record.[facility]
--- OUTSIDE RECORDS SUMMARY | 2025-04-06 16:08 | XMS_ITS | Encounter Summary ---
Author Organization [facility] Address [address] [facility] [address] [place] [address] Phone Care Team Providers Care Ornament Stapler Name Role Phone Segundo Albright MD Primary Care Provider [phone] Yissel Wells Primary Care Provider Sasha Mejia Primary Care Provider [phone] Encounter Details Date Type Department Care Team (Latest Contact Info) Description 04/20/2019 Transcribe Orders [facility] [address] [place] [address] Segundo Albright MD [address] [place] [address] [email or web address] om Type 2 diabetes mellitus without complication, unspecified whether termite control representative insulin use (Primary Dx) Social History Tobacco [...] EDT Telemedicine - audio only Jean Carlos [facility] [address] [place] [address] Nick Quinn MD 22 [facility], 2nd [place] [address] documented as of this encounter Results * (ABNORMAL) Hemoglobin A1c (06/13/2019 11:45 AM EST) HEMOGLOBIN A1C 7.1(H) 4.3 - 5.8 % [facility] Blood 06/13/2019 11:4 5 AM EST 06/13/2019 11:48 AM EST Segundo Albright MD LAB BLOOD ORDERABLES Final Resu lt Performing Organization Address [facility] Co de Phone Number [address] [address] * Alanine aminotransferase (ALT) (06/13/2019 11:45 AM EST) ALT 23 0 - 40 U/L [facility] Blood 06/13/2019 11:4 5 AM EST 06/13/2019 11:48 AM EST Segundo Albright MD LAB BLOOD ORDERABLES Final Resu lt Performing Organization Address [facility] Co de Phone Number [address] [address] documented in this encounter Visit Diagnoses Diagnosis Type 2 diabetes mellitus without complication, unspecified whether fdc insulin use- Primary documented in this encounter Care Teams Ornament Stapler Relationship Specialty Start Date End Date Segundo Albright MD [address] [place] [address] [email or web address] PCP - General 06/11/17 10/25/22 Yissel Wells PA [address] [place] [address] [email or web address] PCP - General Physician Body Shop Mechanic 10/26/22 03/19/25 Sasha Mejia PA [address] [place] [address] PCP - General Physician Body Shop Mechanic 03/20/25 documented as of this encounter Additional Source Comments The information contained in this document represents components of the legal health record. It is not the complete legal health record.[facility]
--- OUTSIDE RECORDS SUMMARY | 2025-04-06 16:08 | XMS_ITS | Encounter Summary ---
Author Organization [facility] Address [address] [place] [address] Phone Care Team Providers Care Satellite Tv Technician Name Role Phone Segundo Albright MD Primary Care Provider Yissel Wells Primary Care Provider Sasha Mejia Primary Care Provider [phone] Encounter Details Date Type Department Care Team (Latest Contact Info) Description 06/16/2020 Transcribe Orders [facility] [address] [place] [address] Yissel Wells PA [address] [place] [address] [email or web address] om Type 2 diabetes mellitus without complication, unspecified whether shelter insulin use (Primary Dx) Social History Tobacco [...] EDT Telemedicine - audio only Jean Carlos [facility] [address] [place] [address] Nick Quinn MD 22 [facility], 2nd [place] [address] documented as of this encounter Results * Lipid panel (02/14/2021 9:34 AM EDT) HDL 48 mg/dL [facility] Comment: Interpretation <40 mg/dL: Low HDL cholesterol (major risk factor for CHD) Greater than or equal to 60 mg/dL: High HDL cholesterol ( negative risk factor for CHD) HDL - cholesterol is affected by a number of factors, e.g. smoking, excerise, hormones, sex and age. CHOLESTEROL 167 0 - 240 mg/dL [facility] TRIGLYCERIDES 160 30 - 160 mg/dL [facility] LDL 87 50 - 129 mg/dL [facility] Comment: LDL levels in terms of risk for coronary heart disease: <100 mg/dL: Optimal 100-129 mg/dL: Near or above optimal 130-159 mg/dL: Borderline high 160-189 mg/dL: High >190 mg/dL: Very High CARDIAC RISK RATIO 3.5 3.4 - 5.0 C [facility] Blood 02/14/2021 9:34 AM EDT 02/14/2021 9:37 AM EDT us Yissel CRAIG LAB BLOOD ORDERABLES Final R esult [facility] [address] [place] [address] * (ABNORMAL) Comprehensive metabolic panel (02/14/2021 9:34 AM EDT) SODIUM 138 133 - 146 mmol/L [facility] POTASSIUM 4.2 3.3 - 5.1 mmol/L [facility] CHLORIDE 104 96 - 108 mmol/L [facility] CO2 23 21 - 35 mmol/L [facility] BUN 13 6 - 19 mg/dL [facility] CREATININE 0.80 0.5 - 1.5 mg/dL [facility] GLUCOSE 146(H) 70 - 99 mg/dL [facility] ALBUMIN 4.6 3.9 - 4.8 g/dL [facility] TOTAL PROTEIN 6.8 6.5 - 8.0 g/dL [facility] CALCIUM 9.5 8.4 - 10.3 mg/dL [facility] ALKALINE PHOSPHATASE 62 39 - 117 U/L [facility] TOTAL BILIRUBIN 0.5 0.0 - 1.2 mg/dL [facility] AST 20 0 - 37 U/L [facility] ALT 19 0 - 40 U/L [facility] GLOBULIN 2.2 1 - 4.8 g/dL [facility] EGFR 95 >59 mL/min/1.7 3m2 [facility] Comment:Estimated glomerular filtration rate calculated using the CKD-EPI equation. ANION GAP 15 10 - 20 mmol/L [facility] Blood 02/14/2021 9:34 AM EDT 02/14/2021 9:37 AM EDT Yissel CRAIG LAB BLOOD ORDERABLES Final R esult Performing Organization Address City/[facility] Co de Phone Number [address] [address] * (ABNORMAL) Microalbumin/creatinine ratio, random urine (10/06/2020 11:53 AM EST) URINE MICROALBUMIN 3.6(H) 0 - 2.3 mg/dL [facility] URINE CREATININE 307 mg/dL [facility] MICROALB/CRE RATIO 11.7 0 - 20 mg/g Cre [facility] Urine (Urine) 10/06/2020 11: 53 AM EST 10/06/2020 11:55 AM EST Yissel CRAIG URINE ORDERABLES Final Resul t Performing Organization Address City/[facility]/ZIP Co de Phone Number [address] [address] * Lipid panel (10/06/2020 10:26 AM EST) HDL 42 mg/dL [facility] Comment: Interpretation <40 mg/dL: Low HDL cholesterol (major risk factor for CHD) Greater than or equal to 60 mg/dL: High HDL cholesterol ( negative risk factor for CHD) HDL - cholesterol is affected by a number of factors, e.g. smoking, excerise, hormones, sex and age. CHOLESTEROL 167 0 - 240 mg/dL [facility] TRIGLYCERIDES 122 30 - 160 mg/dL [facility] LDL 101 50 - 129 mg/dL [facility] Comment: LDL levels in terms of risk for coronary heart disease: <100 mg/dL: Optimal 100-129 mg/dL: Near or above optimal 130-159 mg/dL: Borderline high 160-189 mg/dL: High >190 mg/dL: Very High CARDIAC RISK RATIO 4.0 3.4 - 5.0 C [facility] Blood 10/06/2020 10:2 6 AM EST 10/06/2020 10:32 AM EST us Yissel CRAIG LAB BLOOD ORDERABLES Final R esult Performing Organization Address City/State/[facility] Co de Phone Number [address] [address] * (ABNORMAL) Comprehensive metabolic panel (10/06/2020 10:26 AM EST) SODIUM 139 133 - 146 mmol/L [facility] POTASSIUM 4.3 3.3 - 5.1 mmol/L [facility] CHLORIDE 104 96 - 108 mmol/L [facility] CO2 25 21 - 35 mmol/L [facility] BUN 17 6 - 19 mg/dL [facility] CREATININE 0.90 0.5 - 1.5 mg/dL [facility] GLUCOSE 148(H) 70 - 99 mg/dL [facility] ALBUMIN 4.3 3.9 - 4.8 g/dL [facility] TOTAL PROTEIN 6.5 6.5 - 8.0 g/dL [facility] CALCIUM 9.2 8.4 - 10.3 mg/dL [facility] ALKALINE PHOSPHATASE 63 39 - 117 U/L [facility] TOTAL BILIRUBIN 0.3 0.0 - 1.2 mg/dL [facility] AST 21 0 - 37 U/L [facility] ALT 18 0 - 40 U/L [facility] GLOBULIN 2.2 1 - 4.8 g/dL [facility] EGFR 91 >59 mL/min/1.7 3m2 [facility] Comment:Estimated glomerular filtration rate calculated using the CKD-EPI equation. ANION GAP 14 10 - 20 mmol/L [facility] Blood 10/06/2020 10:2 6 AM EST 10/06/2020 10:32 AM EST Yissel CRAIG LAB BLOOD ORDERABLES Final R esult [facility] [address] [place] [address] documented in this encounter Visit Diagnoses Diagnosis Type 2 diabetes mellitus without complication, unspecified whether shelter insulin use- Primary documented in this encounter Care Teams Satellite Tv Technician Relationship Specialty Start Date End Date Segundo Albright MD [address] [place] [address] [email or web address] PCP - General 06/11/17 10/25/22 Yissel Wells PA [address] [place] [address] [email or web address] PCP - General Physician Speed Operator 10/26/22 03/19/25 Sasha Mejia PA [address] [place] [address] PCP - General Physician Speed Operator 03/20/25 documented as of this encounter Additional Source Comments The information contained in this document represents components of the legal health record. It is not the complete legal health record.[facility]
--- OUTSIDE RECORDS SUMMARY | 2025-04-06 16:08 | XMS_ITS | Encounter Summary ---
Author Organization [facility] Address [address] [place] [address] Phone Care Team Providers Care Content Strategist Name Role Phone Segundo Albright MD Primary Care Provider Yissel Wells Primary Care Provider Sasha Mejia Primary Care Provider [phone] Reason for Referral * MRI/CAT Scan - Closed Specialty Diagnoses / Procedures Referred By Contac t Referred To Contact Radiology Diagnoses Lumbar radiculopathy Procedures MRI Lumbar Spine Karl Fowler DO Phone: tel: fax: [email or web address] Referral ID Status Reason Start Date Expiration Date Visits Re quested Visits Authorized [id number] Closed 08/18/2020 10/17/2020 1 1 Encounter Details Date Type Department Care Team (Latest Contact Info) Description 08/18/2020 Ancillary Orders Virtual Department [address] [place] [address] Karl Fowler DO [address] [place] [address] [email or web address] Lumbar radiculopathy Social History Tobacco Use Types [...] 10:40 AM EDT Telemedicine - audio only [facility] [address] [place] [address] Nick Quinn MD 22 [facility], 2nd [place] [address] documented as of this encounter Results * [...] protrusion at L5-S1 without root compression. POS [id number] Narrative 08/25/2020 1:46 PM EST TECHNIQUE: 1.5 [...] right proximal foraminal focal disc protrusion at L5-[id number] root compression. POS [id number] Karl Fowler DO IMG MR XSPECIALTY Final Resu lt documented in this encounter Visit Diagnoses Diagnosis Lumbar radiculopathy Thoracic or lumbosacral neuritis or radiculitis, unspecified Lumbar radiculopathy Thoracic or lumbosacral neuritis or radiculitis, unspecified documented in this encounter Care Teams Content Strategist Relationship Specialty Start Date End Date Segundo Albright MD [address] [place] [address] [email or web address] PCP - General 06/11/17 10/25/22 Yissel Wells PA [address] [place] [address] [email or web address] PCP - General Physician Distribution Center Manager 10/26/22 03/19/25 Sasha Mejia PA [address] [place] [address] PCP - General Physician Distribution Center Manager 03/20/25 documented as of this encounter Additional Source Comments The information contained in this document represents components of the legal health record. It is not the complete legal health record.[facility]
--- OUTSIDE RECORDS SUMMARY | 2025-04-06 16:08 | XMS_ITS | Encounter Summary ---
Author Organization [facility] Address [address] [place] [address] Phone Care Team Providers Care Stogy Maker Name Role Phone Segundo Albright MD Primary Care Provider Yissel Wells Primary Care Provider Sasha Mejia Primary Care Provider Encounter Details Date Type Department Care Team (Late st Contact Info) Description 03/14/2018 Transcribe Orders [facility] [address] [place] [address] Esme Lopez NP [address] [place] [address] [email or web address] Diabetes mellitus with no complication (Primary Dx) [...] 10:40 AM EDT Telemedicine - audio only [facility] [address] [place] [address] Nick Quinn MD 22 [facility], 2nd [place] [address] documented as of this encounter Visit Diagnoses Diagnosis Diabetes mellitus with no complication- Primary Type II or unspecified type diabetes mellitus without mention of complication, not stated as uncontrolled documented in this encounter Care Teams Stogy Maker Relationship Specialty Start Date End Date Segundo Albright MD [address] [place] [address] [email or web address] PCP - General 06/11/17 10/25/22 Yissel Wells PA [address] [place] [address] [email or web address] PCP - General Physician Video Game Programmer 10/26/22 03/19/25 Sasha Mejia PA [address] [place] [id number] PCP - General Physician Video Game Programmer 03/20/25 documented as of this encounter Additional Source Comments The information contained in this document represents components of the legal health record. It is not the complete legal health record.[facility]
--- OUTSIDE RECORDS SUMMARY | 2025-04-06 16:08 | XMS_ITS | Encounter Summary ---
Author Organization [facility] Address [address] [place] [address] Phone Care Team Providers Care Tool Crib Attendant Name Role Phone Segundo Albright MD Primary Care Provider [phone] Yissel Wells Primary Care Provider Sasha Mejia Primary Care Provider [phone] Reason for Referral * Physical Therapy (Routine) - Closed Specialty Diagnoses / Procedures Referred By Alexandra del castillo Referred To Contact Physical Therapy Diagnoses Encounter for rehabilitation Low Back Pain Procedures Evaluate & Treat Karl Fowler DO Phone: tel: fax: [email or web address] [facility] [address] [place] [address] Phone: tel: Referral ID Status Reason Start Date Expiration Date Visits Re quested Visits Authorized [id number] Closed 08/14/2018 08/04/2019 99 99 Encounter Details Date Type Department Care Team (Latest Contact Info) Description 08/14/2018 Transcribe Orders [facility] [address] [place] [address] Karl Fowler DO [address] [place] [address] [email or web address] Encounter for rehabilitation (Primary Dx) Social History [...] EDT Telemedicine - audio only [facility] Spine Medicine [address] [place] [address] Nick Quinn MD 22 [facility], 2nd [place] [address] [email or web address] documented as of this encounter Procedures Procedure Name Priority Date/Time Associated Diagnosis Comments AMB REFERRAL TO [facility] PHYSICAL THERAPY Routine 09/12/2018 10:08 AM EST Encounter for rehabilitation documented in this encounter Results * Ambulatory referral to [facility] Physical Therapy (09/12/2018 10:08 AM EST) us Karl Fowler DO AMB [facility] REFERRALS Final Resu lt documented in this encounter Visit Diagnoses Diagnosis Encounter for rehabilitation- Primary documented in this encounter Care Teams Tool Crib Attendant Relationship Specialty Start Date End Date Segundo Albright MD [address] [place] [address] [email or web address] PCP - General 06/11/17 10/25/22 Yissel Wells PA [address] [place] [address] [email or web address] PCP - General Physician Canal Tender 10/26/22 03/19/25 Sasha Mejia PA [address] [place] [address] PCP - General Physician Canal Tender 03/20/25 documented as of this encounter Additional Source Comments The information contained in this document represents components of the legal health record. It is not the complete legal health record.[facility]
--- OUTSIDE RECORDS SUMMARY | 2025-04-06 16:09 | XMS_ITS | Clinical Summary ---
Author Organization [facility] Address [address] [place] [address] Care Team Providers Care Entry Specialists Name Role Phone Unavailable Primary Care Provider Unavailabl e Encounters Date Type Department Care Team Description 01/06/2025 Telephone Obstetrics and Gynecology - [place] [address] [place] [phone] Annamarie Bautista MA from Last 3 Months Social History Tobacco Use Types Packs/Day Years Used Date Smoking Tobacco: Never Assessed Sex and Gender Information Value Date Recorded Sex Assigned at Not on file Legal Sex Male 11:15 AM EST Gender Identity Not on file Sexual Orientation Not on file Plan of Treatment Health Maintenance Due Date Last Done Comments DTaP,Tdap,and Td Vaccines (1 - Tdap) 1976 Pneumococcal Vaccine: 50+ Ye ars (1 of 1 - PCV) 2007 Zoster Vaccines (1 of 2) 2007 COVID-19 Vaccine ( - 2023-2 5 season) 2024 Depression Screening 08/05/2024 Abdominal Aortic Aneurysm (A AA) Screen 01/06/2025 Cholesterol Screening (Lipid Panel) 01/06/2025 Colorectal Cancer Screening: Colonoscopy 01/06/2025 Falls Risk Assessment 01/06/2025 Hepatitis C Screening 01/06/2025 Social Influencers of Health Screening 01/06/2025 Influenza Vaccine (#1) 2025 RSV Immunization Adult Patie nts (1 - 1-dose 75+ series) 2032 HIB Vaccines Aged Out No longer eligi ble based on patient's age to complete this topic HPV Vaccines Aged Out No longer eligi ble based on patient's age to complete this topic Hepatitis A Vaccines Aged Out No long er eligible based on patient's age to complete this topic Hepatitis B Vaccines Aged Out No long er eligible based on patient's age to complete this topic IPV Vaccines Aged Out No longer eligi ble based on patient's age to complete this topic MMR Vaccines Aged Out No longer eligi ble based on patient's age to complete this topic Meningococcal ACWY Vaccine Aged Out N o longer eligible based on patient's age to complete this topic Meningococcal B Vaccine Aged Out No l onger eligible based on patient's age to complete this topic RSV Immunization Patients Un nilsa 20 months Aged Out No longer eligible b ased on patient's age to complete this topic Varicella Vaccines Aged Out No longer eligible based on patient's age to complete this topic
--- OUTSIDE RECORDS SUMMARY | 2025-04-06 16:09 | XMS_ITS | Encounter Summary ---
Author Organization [facility] Address [address] [place] [address] [place] [address] Phone Care Team Providers Care Brand Ambassador Name Role Phone Segundo Albright MD Primary Care Provider Segundo Albright MD Primary Care Provider [phone] Yissel Wells Primary Care Provider Sasha Mejia Primary Care Provider Encounter Details Date Type Department Care Team (Late st Contact Info) Description 01/29/2017 Procedure Pass [facility] Imaging [address] [place] [address] Social History Tobacco Use Types Packs/Day Years [...] [facility] [address] [place] [address] Nick Quinn MD 22 [facility], 2nd [place] [address] documented as of this encounter Visit Diagnoses Not on filedocumented in this encounter Care Teams Brand Ambassador Relationship Specialty Start Date End Date Segundo Albright MD [address] [place] [address] [email or web address] PCP - General Family Medicine 01/02/17 06/10/17 Segundo Albright MD [address] [place] [address] [email or web address] PCP - General 06/11/17 10/25/22 Yissel Wells PA [address] [place] [address] [email or web address] PCP - General Physician Safety Director 10/26/22 03/19/25 Sasha Mejia PA [address] [place] [id number] PCP - General Physician Safety Director 03/20/25 documented as of this encounter Additional Source Comments The information contained in this document represents components of the legal health record. It is not the complete legal health record.[facility]
--- OUTSIDE RECORDS SUMMARY | 2025-04-06 16:09 | XMS_ITS | Encounter Summary ---
Author Organization [facility] Address [address] [place] [address] Phone Care Team Providers Care Farm Worker Name Role Phone Segundo Albright MD Primary Care Provider Yissel Wells Primary Care Provider Sasha Mejia Primary Care Provider Reason for Referral * MRI/CAT Scan - Closed Specialty Diagnoses / Procedures Referred By Contac t Referred To Contact Radiology Diagnoses Congenital multiple renal cysts Procedures CT Abdomen Only (No Pelvis) Aquilino Montenegro MD Phone: tel: fax: [email or web address]:[email or web address] Referral ID Status Reason Start Date Expiration Date Visits Re quested Visits Authorized [id number] Closed 10/19/2022 10/19/2023 1 1 Encounter Details Date Type Department Care Team (Latest Contact Info) Description 10/19/2022 Transcribe Orders Virtual Department [address] [place] [address] Aquilino Montenegro MD [address] [place] [address], [address] [address] [email or web address] Congenital multiple renal cysts (Primary Dx) Social [...] AM EDT Telemedicine - audio only [facility] Spine Medicine [address] [place] [address] Nick Quinn MD 22 [facility], 2nd [place] [address] [email or web address] documented as of this encounter Results * [...] EDT) SODIUM 139 133 - 146 mmol/L [facility] CHLORIDE 105 96 - 108 mmol/L [facility] POTASSIUM 4.4 3.3 - 5.1 mmol/L [facility] CO2 25 21 - 35 mmol/L [facility] BUN 13 6 - 19 mg/dL [facility] CREATININE 0.90 0.5 - 1.5 mg/dL [facility] GLUCOSE 128(H) 70 - 99 mg/dL [facility] CALCIUM 9.4 8.4 - 10.3 mg/dL [facility] EGFR 95 >59 mL/min/1.7 3m2 [facility] Comment:Estimated glomerular filtration rate calculated using the CKD-EPI refit equation. ANION GAP 13 10 - 20 mmol/L [facility] Blood 10/26/2022 11:3 3 AM EDT 10/26/2022 11:37 AM EDT us Aquilino Montenegro MD LAB BLOOD ORDERABLES Final Res ult [facility] [address] [place] [address] documented in this encounter Visit Diagnoses Diagnosis Congenital multiple renal cysts- Primary Congenital multiple renal cysts documented in this encounter Care Teams Farm Worker Relationship Specialty Start Date End Date Segundo Albright MD [address] [place] [address] [email or web address] PCP - General 06/11/17 10/25/22 Yissel Wells PA [address] [place] [address] [email or web address] PCP - General Physician Drain Layer 10/26/22 03/19/25 Sasha Mejia PA [address] [place] [address] PCP - General Physician Drain Layer 03/20/25 documented as of this encounter Additional Source Comments The information contained in this document represents components of the legal health record. It is not the complete legal health record.[facility]
--- OUTSIDE RECORDS SUMMARY | 2025-04-06 16:09 | XMS_ITS | Encounter Summary ---
Author Organization [facility] Address [address] [facility] [address] [place] [address] Phone Care Team Providers Care Oil Agent Name Role Phone Segundo Albright MD Primary Care Provider [phone] Yissel Wells Primary Care Provider [phone] Sasha Mejia Primary Care Provider Encounter Details Date Type Department Care Team (Latest Contact Info) Description 06/13/2017 Transcribe Orders [facility] [address] [place] [address] Segundo Albright MD [address] [place] [address] [email or web address] Testicular hypofunction (Primary Dx); Mixed hyperlipidemia; [...] AM EDT Telemedicine - audio only [facility] Medicine [address] [place] [address] Nick Quinn MD 22 [facility], 2nd [place] [address] documented as of this encounter Procedures Procedure [...] URINE MICROALBUMIN 3.9(H) 0 - 2.3 mg/dL [facility] URINE CREATININE 417 mg/dL REFORMATORY ATTENDANT [facility] MICROALB/CRE RATIO 9.4 0 - 20 mg/g Cre [facility] Urine (Urine) 06/14/2017 9:3 3 AM EST 06/14/2017 9:58 AM EST us Segundo Albright MD URINE ORDERABLES Final Result [facility] [address] [place] [address] * (ABNORMAL) Lipid panel (06/14/2017 9:33 AM EST) HDL 52 mg/dL [facility] Comment: Interpretation: Risk Level Males Decreased >45 mg/dL Average 40-45 mg/dL Increased <40 mg/dL CHOLESTEROL 167 0 - 240 mg/dL [facility] TRIGLYCERIDES 134 30 - 160 mg/dL [facility] LDL 88 50 - 129 mg/dL [facility] Comment: LDL levels in terms of risk for coronary heart disease: <100 mg/dL: Optimal 100-129 mg/dL: Near or above optimal 130-159 mg/dL: Borderline high 160-189 mg/dL: High >190 mg/dL: Very High CARDIAC RISK RATIO 3.2(L) 3.4 - 5.0 C [facility] Blood 06/14/2017 9:33 AM EST 06/14/2017 9:48 AM EST Segundo Albright MD LAB BLOOD ORDERABLES Final Resu lt Performing Organization Address City/[facility]/ZIP Co de Phone Number [address] [address] * (ABNORMAL) Basic metabolic panel (06/14/2017 9:33 AM EST) SODIUM 143 133 - 146 mmol/L [facility] CHLORIDE 104 96 - 108 mmol/L [facility] POTASSIUM 4.8 3.3 - 5.1 mmol/L [facility] CO2 28 21 - 35 mmol/L [facility] BUN 13 6 - 19 mg/dL [facility] CREATININE 0.90 0.5 - 1.5 mg/dL [facility] GLUCOSE 132(H) 70 - 99 mg/dL [facility] CALCIUM 9.8 8.4 - 10.3 mg/dL [facility] EGFR >60 60 - 1000 mL/min/1. 73m2 [facility] Comment:Abnormal if <60. If patient is -Bhutanese, multiply the result by 1.21. ANION GAP NOT CALCULATED 10 - 20 mmol/L [facility] Blood 06/14/2017 9:33 AM EST 06/14/2017 9:48 AM EST Segundo Albright MD LAB BLOOD ORDERABLES Final Resu lt [address] [address] * CBC (06/14/2017 9:33 AM EST) WBC 6.56 3.40 - 11.20 K/uL [facility] RBC 5.09 4.50 - 5.50 M/uL [facility] HGB 15.3 13.0 - 17.0 g/dL [facility] HCT 43.9 40.0 - 51.0 % [facility] PLT 216 130 - 400 K/uL [facility] MCV 86.2 79.0 - 98.0 fL [facility] MCH 30.1 27.0 - 34.8 pg [facility] MCHC 34.9 31.5 - 36.0 g/dL [facility] RDW 13.0 10.8 - 14.6 % [facility] MPV 9.8 9.4 - 12.4 fl [facility] NRBC 0.00 /100 WBCs [facility] ABSOLUTE NRBC 0.00 K/uL [facility] Blood 06/14/2017 9:33 AM EST 06/14/2017 9:48 AM EST us Segundo Albright MD LAB BLOOD ORDERABLES Final Resu lt Performing Organization Address [facility] Co de Phone Number [address] [address] * (ABNORMAL) Hemoglobin A1c (06/14/2017 9:33 AM EST) HEMOGLOBIN A1C 6.6(H) 4.3 - 5.8 % [facility] Blood 06/14/2017 9:33 AM EST 06/14/2017 9:48 AM EST us Segundo Albright MD LAB BLOOD ORDERABLES Final Resu lt Performing Organization Address City/[facility]/ZIP Co de Phone Number [address] [address] * LFTs (hepatic panel) (06/14/2017 9:33 AM EST) ALKALINE PHOSPHATASE 63 39 - 117 U/L [facility] TOTAL BILIRUBIN 0.9 0 - 1.2 mg/dL [facility] DIRECT BILIRUBIN <0.2 0 - 0.3 mg/dL [facility] Bilirubin (Indirect) NOT CALCULATED 0 - 1.5 mg/dL [facility] AST 23 0 - 37 U/L [facility] ALT 28 0 - 40 U/L [facility] TOTAL PROTEIN 7.4 6.5 - 8.0 g/dL [facility] ALBUMIN 4.7 3.9 - 4.8 g/dL [facility] GLOBULIN 2.7 1 - 4.8 g/dL [facility] A/G Ratio 1.74 1.00 - 4.80 RATIO [facility] Blood 06/14/2017 9:33 AM EST 06/14/2017 9:48 AM EST us Segundo Albright MD LAB BLOOD ORDERABLES Edited Res ult - Final Performing Organization Address [facility] Co de Phone Number [address] [address] * PSA (screening) (06/14/2017 9:33 AM EST) PSA 0.39 0 - 4.00 ng/mL [facility] Blood 06/14/2017 9:33 AM EST 06/14/2017 1:13 PM EST us Segundo Albright MD LAB BLOOD ORDERABLES Final Resu lt Performing Organization Address [facility] Co de Phone Number [address] [address] documented in this encounter Visit Diagnoses Diagnosis Testicular hypofunction- Primary Other testicular hypofunction Mixed hyperlipidemia Diabetes mellitus without complication Type II or unspecified type diabetes mellitus without mention of complication, not stated as uncontrolled documented in this encounter Care Teams Oil Agent Relationship Specialty Start Date End Date Segundo Albright MD [address] [place] [address] [email or web address] PCP - General 06/11/17 10/25/22 Yissel Wells PA [address] [place] [address] [email or web address] PCP - General Physician Consulting Application Engineer 10/26/22 03/19/25 Sasha Mejia PA [address] [place] [id number] PCP - General Physician Consulting Application Engineer 03/20/25 documented as of this encounter Additional Source Comments The information contained in this document represents components of the legal health record. It is not the complete legal health record.[facility]
--- OUTSIDE RECORDS SUMMARY | 2025-04-06 16:09 | XMS_ITS | Encounter Summary ---
Author Organization [facility] Address [address] [place] [address] Phone Care Team Providers Care Business Process Analyst Name Role Phone Sasha Mejia Primary Care Provider [phone] Reason for Visit * Reason Onset Date Comments waiting for records 04/06/2025 Encounter Details Date Type Department Care Team ([facility] Contact Info) Description 04/06/2025 Telephone [facility] Orthopedics & Sports Medicine [address] [place] [address] Archana Chaudhary MD [address] [place] [address] Orthopedics & Sports Medicine, [facility] [place], [place] [id number] [email or web address] waiting for records Social History Tobacco Use Types Packs/Day Years [...] is your housing situation today? I have juliarozina robles 03/20/2025 How many times have you [...] as of this encounter Progress Notes * Kecia Cooley - 04/06/2025 11:25 AM EDT Waiting on records. Referral and notes regarding MRI are in chart, but MRI image is not. This may or may not be surgical in nature so directing TE to both Dr.s Chaudhary and Ary PATINO 04/06/25 documented in this encounter Plan of Treatment Upcoming Encounters Date Type Department Care Team (Late st Contact Info) Description 04/16/2025 10:40 AM EDT Telemedicine - audio only [facility] Spine Medicine [address] [place] [address] Nick Quinn MD 22 [facility], 2nd [place] [address] [email or web address] documented as of this encounter Visit Diagnoses Not on filedocumented in this encounter Care Teams Business Process Analyst Relationship Specialty Start Date End Date Sasha Mejia PA [address] [place] [phone] PCP - General Physician Technician Anatomic Pathology 03/20/25 documented as of this encounter Additional Source Comments The information contained in this document represents components of the legal health record. It is not the complete legal health record.[facility]
--- OUTSIDE RECORDS SUMMARY | 2025-04-06 16:09 | XMS_ITS | Clinical Summary ---
Author Organization [facility] Address [address] [place] [address] Phone Care Team Providers Care Rug Cutter Name Role Phone Sasha Mejia Primary Care Provider [phone] Allergies Active Allergy Reactions Criticality Noted Date [...] with breakfast for 6 days. 6 tablet 025 2024 Hospital, Clinic, or Other Facility Administered [...] Encounters Date Type Department Care Team Description 04/06/2025 Telephone [facility] Orthopedics & Sports Medicine [address] [place] [address] Archana Chaudhary MD waiting for records 04/01/2025 Telephone [facility] Geriatrics [address] [place] [address] [place] [address] Cameron Wilson 03/26/2025 Transcribe Orders [facility] Orthopedics & Sports Medicine [address] [place] [address] Jose Jama PA 03/26/2025 Orders Only [facility] Spine Medicine [address] [place] [address] [place] [address] Nick Quinn MD Lumbar radiculitis (Primary Dx) 03/25/2025 2:00 PM EDT Procedure visit [facility] Spine Medicine [address] [address] Nick Quinn MD Lumbar radiculitis (Primary Dx) 03/25/2025 1:49 PM EDT - 03/25/2025 11:59 PM EDT Hospital Encounter [facility] [address] [place] [address] Nick Quinn MD Discharge Disposition: Home or Self Care 03/23/2025 1:00 PM EDT Office Visit [facility] Spine Medicine [address] [place] [address] [place] [address] Nick Quinn MD Lumbar radiculitis (Primary Dx) 03/22/2025 Transcribe Orders [facility] Neurology [address] [place] [address] [place] [address] Rachel Short MA Other chronic pain (Primary Dx) 03/22/2025 Telephone [facility] Spine Medicine [address] [place] [address] [place] [address] Nick Quinn MD Appointment; Medication Management 03/20/2025 10:47 AM EDT - 03/20/2025 7:06 PM EDT Emergency [facility] Emergency [address] [place] [address] Isaak Pandey MD Discharge Disposition: Home or Self Care 03/20/2025 Procedure Pass [facility], [facility] [address] [place] [address] 03/19/2025 Telephone [facility] Spine Medicine [address] [place] [address] [place] [address] Yissel Wells PA Establish Care 01/14/2025 3:44 PM EDT - 01/14/2025 11:59 PM EDT Hospital Encounter [facility] Specimen Processing [address] [place] [address] Elizabeth Roblero MD Discharge Disposition: Home or Self Care 01/14/2025 Transcribe Orders [facility] Specimen Processing [address] [place] [address] Elizabeth Roblero MD Impetigo (Primary Dx) from [...] audio only [facility] Spine Medicine [address] [place] [address] Nick Quinn MD 22 [facility], 2nd [place] [address] [email or web address] Health Maintenance Due Date Last Done Comments DEPRESSION SCREENING 1969 HEPATITIS C SCREENING 1975 COLOGUARD 2002 COLONOSCOPY 2002 COLORECTAL CANCER SCREENING 2002 FIT TEST 2002 FOBT 2002 SIGMOIDOSCOPY 2002 VIRTUAL COLONOSCOPY 2002 Adult Td,Tdap Booster 05/23/2020 05/23/2010 BLOOD PRESSURE 06/11/2023 12/09/2022 DIABETIC EYE EXAM 07/07/2024 07/01/2018 PNEUMOCOCCAL VACCINES (50+ years) (3 of 3 - PCV20 or PCV21) 07/10/2024 07/10/2019, 10/21/2015 URINE MICROALBUMIN/CREATININE RATIO 09/27/2024 09/27/2023, 09/07/2021, 10/06/2020, Additional history exists HEMOGLOBIN A1C 01/05/2025 07/07/2024, 05/03/2024, 09/27/2023, Additional history exists INFLUENZA VACCINE (#1) 2025 , 06/21/2022, 05/25/2021, Additional history exists COVID-19 VACCINE ( season) 2025 12/20/2020, 12/04/2020, 11/13/2020 CREATININE LEVEL 07/07/2025 07/07/2024, , 09/07/2021, Additional [...] 2 diabetes mellitus without complication, unspecified whether moth exterminator insulin use BASIC METABOLIC PANEL Routine 07/07/2024 10:29 AM EST Essential (primary) hypertension Type 2 diabetes mellitus without complication, unspecified whether moth exterminator insulin use MICROALBUMIN/CREATI NINE RATIO, RANDOM URINE Routine 09/07/2021 10:04 AM EST Type 2 diabetes mellitus without complication, unspecified whether moth exterminator insulin use Elevated liver function tests from [...] 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 us Carol Ghotra PA-C IMG MR XSPECIALTY Final Resu lt * Wound culture/smear (01/14/2025 3:52 PM EDT) Special Requests None 01/14/2025 3:52 PM EDT [facility] GRAM STAIN NO ORGANISMS SEEN 01/15/2025 8:14 AM EDT [facility] Wound Culture/Smear NO GROWTH 48HRS 01/16/2025 10:44 AM EDT [facility] Other (Nasal) 01/14/2025 3:5 2 PM EDT 01/14/2025 3:53 PM EDT Comment:LEFT NASAL ALAR GROO VE us Elizabeth Roblero MD MICROBIOLOGY - GENERAL SHAUNNA FERNANDEZ Final Result [facility] [address] [place] [address] * (ABNORMAL) Hemoglobin A1c (07/07/2024 10:29 AM EST) HEMOGLOBIN A1C 6.4(H) 4.3 - 5.8 % [facility] Blood 07/07/2024 10:2 9 AM EST 07/07/2024 10:36 AM EST Yissel CRAIG LAB BLOOD ORDERABLES Final R esult [address] [address] * (ABNORMAL) Basic metabolic panel (07/07/2024 10:29 AM EST) [facility] SODIUM 140 133 - 146 mmol/L [facility] CHLORIDE 104 96 - 108 mmol/L [facility] POTASSIUM 4.3 3.3 - 5.1 mmol/L [facility] Comment:Specimen slightly he molyzed, result may be falsely elevated. CO2 22 21 - 35 mmol/L [facility] BUN 20(H) 6 - 19 mg/dL [facility] CREATININE 0.80 0.5 - 1.5 mg/dL [facility] GLUCOSE 120(H) 70 - 99 mg/dL [facility] CALCIUM 9.6 8.4 - 10.3 mg/dL [facility] EGFR 98 >59 mL/min/1.7 3m2 [facility] Comment:Estimated glomerular filtration rate calculated using the CKD-EPI refit equation. ANION GAP 18 10 - 20 mmol/L [facility] Blood 07/07/2024 10:2 9 AM EST 07/07/2024 10:36 AM EST Yissel CRAIG LAB BLOOD ORDERABLES Final R esult [address] [address] * (ABNORMAL) Microalbumin/creatinine ratio, random urine (09/07/2021 10:04 AM EST) URINE MICROALBUMIN 14.2(H) 0 - 2.3 mg/dL [facility] URINE CREATININE 515 mg/dL [facility] MICROALB/CRE RATIO 27.6(H) 0 - 20 mg/g Cre [facility] Urine (Urine) 09/07/2021 10: 04 AM EST 09/07/2021 10:17 AM EST us Yissel CRAIG URINE ORDERABLES Final Resul t [address] [address] from Last 3 Months or Most Recently Relevant to Health Maintenance Insurance [facility] Address: [place] [address] MEDICARE PART A & [place] [address] MEDICARE SUPPLEMENT MEDICARE PART A & B MEDICARE PART A & B MEDICARE PART A & B MEDICARE PART A & B MEDICARE PART A & B [facility] , [address] [place] [address] Care Teams Rug Cutter Relationship Specialty Start Date End Date Sasha Mejia PA [address] [place] [phone] PCP - General Physician Die Cast Engineer 03/20/25 Additional Source Comments The information contained in this document represents components of the legal health record. It is not the complete legal health record.[facility]
--- OUTSIDE RECORDS SUMMARY | 2025-04-06 16:09 | XMS_ITS | Encounter Summary ---
Author Organization [facility] Address [address] [facility] [address] [place] [address] Phone Care Team Providers Care Cooler Tender Name Role Phone Sasha Mejia Primary Care Provider [phone] Encounter Details Date Type Department Care Team (Late st Contact Info) Description 03/20/2025 Procedure Pass [facility], [address] [address] Social History Tobacco Use Types Packs/Day Years [...] 03/20/2025 10:40 AM Ele Mason RN * [place] Suicide Severity Rating Scale (Screener/Recent Self-Report) Question Answer Date of Assessment Author 1. Wish to be (Past 1 Month) No 025 10:40 AM Ele Msaon RN 2. Non-Specific Active Suici edgard Thoughts (Past 1 Month) No 03/20/2025 10:40 AM Ele Mason, RN 6. Suicidal Behavior (Lifetime) No 10:40 AM Ele Mason, KATHERINE documented as of this encounter Plan of Treatment Upcoming Encounters Date Type Department Care Team (Late st Contact Info) Description 04/16/2025 10:40 AM EDT Telemedicine - audio only [facility] Spine Medicine [address] [place] [address] Nick Quinn MD [address] [place], [place] [address], [place] [address] [email or web address] documented as of this encounter Visit Diagnoses Not on filedocumented in this encounter Care Teams Cooler Tender Relationship Specialty Start Date End Date Sasha Mejia PA [address] [place] [id number] PCP - General Physician Stacker Operator 03/20/25 documented as of this encounter Additional Source Comments The information contained in this document represents components of the legal health record. It is not the complete legal health record.[facility]
--- OUTSIDE RECORDS SUMMARY | 2025-04-06 16:09 | XMS_ITS | Encounter Summary ---
Author Organization [facility] Address [address] [place] [address] [place] [address] Phone Care Team Providers Care Reed Man Name Role Phone Segundo Albright MD Primary Care Provider [phone] Segundo Albright MD Primary Care Provider Yissel Wells Primary Care Provider Sasha Mejia Primary Care Provider Encounter Details Date Type Department Care Team (Late st Contact Info) Description 01/29/[address] [facility] [address] [place] [address] Social History Tobacco Use Types Packs/Day Years [...] [facility] [address] [place] [address] Nick Quinn MD [address] [facility], 2nd [place] [address] documented as of this encounter Visit Diagnoses Not on filedocumented in this encounter Care Teams Reed Man Relationship Specialty Start Date End Date Segundo Albright MD [address] [place] [address] [email or web address] PCP - General Family Medicine 01/02/17 06/10/17 Segundo Albright MD [address] [place] [address] [email or web address] PCP - General 06/11/17 10/25/22 Yissel Wells PA [address] [place] [address] [email or web address] PCP - General Physician Fluid Jet Cutter Operator 10/26/22 03/19/25 Sasha Mejia PA [address] [place] [id number] PCP - General Physician Fluid Jet Cutter Operator 03/20/25 documented as of this encounter Additional Source Comments The information contained in this document represents components of the legal health record. It is not the complete legal health record.[facility]
--- OUTSIDE RECORDS SUMMARY | 2025-04-06 16:09 | XMS_ITS | Encounter Summary ---
Author Organization [facility] Address [address] [facility] [address] [place] [address] Phone Care Team Providers Care Road Design Engineer Name Role Phone Sasha Mejia Primary Care Provider [phone] Reason for Visit * Reason Onset Date Comments Appointment 03/22/2025 Medication Management 03/22/2025 Encounter Details Date Type Department Care Team ([facility] st Contact Info) Description 03/22/2025 Telephone [facility] Spine Medicine [address] [place] [address] Nick Quinn MD [address] [facility], 2nd [place] [address] [email or web address] Appointment; Medication Management Social History Tobacco Use [...] to able to walk currently Central Support Analysis Tester (Please do not reply to this user; this inbox is not monitored.) Thank you. documented in this encounter Plan of Treatment Upcoming Encounters Date Type Department Care Team (Late st Contact Info) Description 04/16/2025 10:40 AM EDT Telemedicine - audio only [facility] Spine Medicine [address] [place] [address] Nick Quinn MD [address] [facility], 2nd [place] [address] [email or web address] documented as of this encounter Visit Diagnoses Not on filedocumented in this encounter Care Teams Road Design Engineer Relationship Specialty Start Date End Date Sasha Mejia PA [address] [place] [phone] PCP - General Physician Mohs Surgeon/General Dermatologist 03/20/25 documented as of this encounter Additional Source Comments The information contained in this document represents components of the legal health record. It is not the complete legal health record.[facility]
--- OUTSIDE RECORDS SUMMARY | 2025-04-06 16:09 | XMS_ITS | Encounter Summary ---
Author Organization [facility] Address [address] [place] [address] Phone Care Team Providers Care Agricultural Real Estate Agent Name Role Phone Segundo Albright MD Primary Care Provider [phone] Yissel Wells Primary Care Provider [phone] Sasha Mejia Primary Care Provider Encounter Details Date Type Department Care Team (Late st Contact Info) Description 04/11/2022 Procedure Pass [facility], [address] [address] Social History Tobacco Use Types Packs/Day Years [...] 10:40 AM EDT Telemedicine - audio only [facility] Spine Medicine [address] [place] [address] Nick Quinn MD 22 [facility], 2nd [place] [address] [email or web address] documented as of this encounter Visit Diagnoses Not on filedocumented in this encounter Care Teams Agricultural Real Estate Agent Relationship Specialty Start Date End Date Segundo Albright MD [address] [place] [address] [email or web address] PCP - General 06/11/17 10/25/22 Yissel Wells PA [address] [place] [address] [email or web address] PCP - General Physician Security Systems Technician 10/26/22 03/19/25 Sasha Mejia PA [address] [place] [address] PCP - General Physician Security Systems Technician 03/20/25 documented as of this encounter Additional Source Comments The information contained in this document represents components of the legal health record. It is not the complete legal health record.[facility]
--- OUTSIDE RECORDS SUMMARY | 2025-04-06 16:09 | XMS_ITS | Encounter Summary ---
Author Organization [facility] Address [address] [facility] [address] [place] [address] Phone Care Team Providers Care Beater Machine Operator Name Role Phone Sasha Mejia Primary Care Provider [phone] Encounter Details Date Type Department Care Team ([facility] st Contact Info) Description 04/01/2025 Telephone [facility] Ger[facility] [address] [place] [address] Cameron Wilson 22 [place] [address] [email or web address] Social History Tobacco Use Types Packs/Day Years [...] 10:40 AM EDT Telemedicine - audio only [facility] Spine Medicine [address] [place] [address] Nick Quinn MD [address] [place] [address], 2nd [place] [address] [email or web address] documented as of this encounter Visit Diagnoses Diagnosis Lumbar radiculitis documented in this encounter Care Teams Beater Machine Operator Relationship Specialty Start Date End Date Sasha Mejia PA [address] [place] [id number] PCP - General Physician Regional Sales Associate 03/20/25 documented as of this encounter Additional Source Comments The information contained in this document represents components of the legal health record. It is not the complete legal health record.[facility]
--- OUTSIDE RECORDS SUMMARY | 2025-04-06 16:09 | XMS_ITS | Encounter Summary ---
Author Organization [facility] Address [address] [place] [address] Phone Care Team Providers Care Supervisor Joiners Name Role Phone Segundo Albright MD Primary Care Provider Yissel Wells Primary Care Provider Sasha Mejia Primary Care Provider [phone] Encounter Details Date Type Department Care Team (Late st Contact Info) Description 06/11/2017 Procedure Pass [facility], [facility] [address] [place] [address] Social History Tobacco Use Types Packs/Day Years [...] audio only [facility] Spine Medicine [address] [place] [address] Nick Quinn MD [address] [place] [address] [place] [address] [email or web address] documented as of this encounter Visit Diagnoses Not on filedocumented in this encounter Care Teams Supervisor Joiners Relationship Specialty Start Date End Date Segundo Albright MD [address] [place] [address] [email or web address] PCP - General 06/11/17 10/25/22 Yissel Wells PA [address] [place] [address] [email or web address] PCP - General Physician Neurocritical Care Physician 10/26/22 03/19/25 Sasha Mejia PA [address] [place] [id number] PCP - General Physician Neurocritical Care Physician 03/20/25 documented as of this encounter Additional Source Comments The information contained in this document represents components of the legal health record. It is not the complete legal health record.[facility]
--- OUTSIDE RECORDS SUMMARY | 2025-04-06 16:09 | XMS_ITS | Encounter Summary ---
Author Organization [facility] Address [address] [facility] [address] [place] [address] Phone Care Team Providers Care Assistant Professor Of Criminal Justice Name Role Phone Segundo Albright MD Primary Care Provider Yissel Wells Primary Care Provider Sasha Mejia Primary Care Provider Encounter Details Date Type Department Care Team (Latest Contact Info) Description 04/08/2019 Transcribe Orders [facility] [address] [place] [address] Segundo Albright MD [address] [place] [address] [email or web address] Diabetes mellitus with no [...] 10:40 AM EDT Telemedicine - audio only [facility] Spine Medicine [address] [place] [address] Nick Quinn MD [address] [facility], 2nd [place] [address] documented as of this encounter Results * Lipid panel (04/08/2019 8:44 AM EDT) HDL 50 mg/dL [facility] Comment: Interpretation <40 mg/dL: Low HDL cholesterol (major risk factor for CHD) Greater than or equal to 60 mg/dL: High HDL cholesterol ( negative risk factor for CHD) HDL - cholesterol is affected by a number of factors, e.g. smoking, excerise, hormones, sex and age. CHOLESTEROL 192 0 - 240 mg/dL [facility] TRIGLYCERIDES 153 30 - 160 mg/dL [facility] LDL 111 50 - 129 mg/dL [facility] Comment: LDL levels in terms of risk for coronary heart disease: <100 mg/dL: Optimal 100-129 mg/dL: Near or above optimal 130-159 mg/dL: Borderline high 160-189 mg/dL: High >190 mg/dL: Very High CARDIAC RISK RATIO 3.8 3.4 - 5.0 [facility] Blood 04/08/2019 8:44 AM EDT 04/08/2019 8:55 AM EDT us Segundo Albright MD LAB BLOOD ORDERABLES Final Resu lt Performing Organization Address City/[facility] [address]/[facility] Co de Phone Number [address] [address] * (ABNORMAL) Hemoglobin A1c (04/08/2019 8:44 AM EDT) HEMOGLOBIN A1C 7.6(H) 4.3 - 5.8 % [facility] Blood 04/08/2019 8:44 AM EDT 04/08/2019 8:55 AM EDT Segundo Albright MD LAB BLOOD ORDERABLES Final Resu lt Performing Organization Address [facility] [address]/ZIP Co de Phone Number [address] [address] * (ABNORMAL) Basic metabolic panel (04/08/2019 8:44 AM EDT) SODIUM 138 133 - 146 mmol/L [facility] CHLORIDE 101 96 - 108 mmol/L [facility] POTASSIUM 4.3 3.3 - 5.1 mmol/L [facility] CO2 26 21 - 35 mmol/L [facility] BUN 12 6 - 19 mg/dL [facility] CREATININE 0.90 0.5 - 1.5 mg/dL [facility] GLUCOSE 191(H) 70 - 99 mg/dL [facility] CALCIUM 9.4 8.4 - 10.3 mg/dL [facility] EGFR 92 >59 mL/min/1.7 3m2 [facility] Comment:If patient is black, multiply result by 1.159. Estimated glomerular filtration rate calculated using the CKD-EPI equation. ANION GAP 15 10 - 20 mmol/L [facility] Blood 04/08/2019 8:44 AM EDT 04/08/2019 8:55 AM EDT us Segundo Albright MD LAB BLOOD ORDERABLES Final Resu lt Performing Organization Address City/State/[facility] Co de Phone Number [facility] [address] [place] [address] documented in this encounter Visit Diagnoses Diagnosis Diabetes mellitus with no complication- Primary Type II or unspecified type diabetes mellitus without mention of complication, not stated as uncontrolled documented in this encounter Care Teams Assistant Professor Of Criminal Justice Relationship Specialty Start Date End Date Segundo Albright MD [address] [place] [address] [email or web address] PCP - General 06/11/17 10/25/22 Yissel Wells PA [address] [place] [address] [email or web address] PCP - General Physician Merchant Miller 10/26/22 03/19/25 Sasha Mejia PA [address] [place] [address] PCP - General Physician Merchant Miller 8/16/25 documented as of this encounter Additional Source Comments The information contained in this document represents components of the legal health record. It is not the complete legal health record.[facility]
--- OUTSIDE RECORDS SUMMARY | 2025-04-06 16:09 | XMS_ITS | Encounter Summary ---
Author Organization [facility] Address [address] [place] [id number] Phone Care Team Providers Care Hydroelectric Machinery Mechanic Helper Name Role Phone Segundo Albright MD Primary Care Provider Yissel Wells Primary Care Provider Sasha Mejia Primary Care Provider [phone] Reason for Referral * MRI/CAT Scan - Closed Specialty Diagnoses / Procedures Referred By Contac t Referred To Contact Radiology Diagnoses Chronic low back pain, unspecified back pain laterality, with sciatica presence unspecified Procedures MRI Lumbar Spine CHG MRI, LUMBAR SPINE CONTRAST Karl Fowler DO Phone: tel: fax: [email or web address] Referral ID Status Reason Start Date Expiration Date Visits Re quested Visits Authorized [id number] Closed 06/06/2017 08/09/2017 1 1 Encounter Details Date Type Department Care Team (Late st Contact Info) Description 06/11/2017 Ancillary Orders Virtual Department [address] [place] [address] Karl Fowler DO [address] [place] [address] [email or web address] Chronic low back pain, unspecified back pain [...] 10:40 AM EDT Telemedicine - audio only [facility] [address] [place] [address] Nick Quinn MD 22 [facility], 2nd [place] [address] [email or web address] documented as of this encounter Results * [...] musculature probably due to strain. POS - [id number] Narrative 06/16/2017 6:55 PM EST HISTORY: Lower back pain and numbness left thigh. Abnormality in the left neuroforamen at L2-L3. COMPARISON: Read in conjunction with non-enhanced MRI lumbar spine sequences of 05/29/2017. TECHNIQUE: Exam performed on a 1.5 Janine high-field MRI scanner. Axial and sagittal pre- and lhaf-gfzfgvuisq-[id number] sequences obtained to further evaluate left neuroforamen [...] high-field MRI scanner. Axialand sagittal pre- and tahl-fklstudrck-xplyklpm sequences obtained tofurther evaluate left neuroforamen at [...] paraspinous musculatureprobably due to strain. POS - [id number] us Karl Fowler DO IMG MR XSPECIALTY Final Resu lt documented in this encounter Visit Diagnoses Diagnosis Chronic low back pain, unspecified back pain laterality, with sciatica presence unspecified Chronic low back pain, unspecified back pain laterality, with sciatica presence unspecified documented in this encounter Care Teams Hydroelectric Machinery Mechanic Helper Relationship Specialty Start Date End Date Segundo Albright MD [address] [place] [address] [email or web address] PCP - General 06/11/17 10/25/22 Yissel Wells PA [address] [place] [address] [email or web address] PCP - General Physician School Fundraising Director 10/26/22 03/19/25 Sasha Mejia PA [address] [place] [id number] PCP - General Physician School Fundraising Director 03/20/25 documented as of this encounter Additional Source Comments The information contained in this document represents components of the legal health record. It is not the complete legal health record.[facility]
--- OUTSIDE RECORDS SUMMARY | 2025-04-06 16:09 | XMS_ITS | Encounter Summary ---
Author Organization [facility] Address [address] [place] [address] [place] [address] Phone Care Team Providers Care Automotive Service Technician Name Role Phone Segundo Albright MD Primary Care Provider Yissel Wells Primary Care Provider Sasha Mejia Primary Care Provider [phone] Encounter Details Date Type Department Care Team (Late Contact Info) Description 10/19/2022 Procedure [facility], Ct Scan - [address] [address] Social History Tobacco Use Types Packs/Day Years [...] only [facility] [address] [place] [address] Nick Quinn MD 22 [facility], [address]nd [place] [address] documented as of this encounter Visit Diagnoses Not on filedocumented in this encounter Care Teams Automotive Service Technician Relationship Specialty Start Date End Date Segundo Albright MD [address] [place] [address] [email or web address] PCP - General 06/11/17 10/25/22 Yissel Wells PA [address] [place] [address] [email or web address] PCP - General Physician Toy Trains And Accessories Salesperson 10/26/22 03/19/25 Sasha Mejia PA [address] [place] [address] PCP - General Physician Toy Trains And Accessories Salesperson 03/20/25 documented as of this encounter Additional Source Comments The information contained in this document represents components of the legal health record. It is not the complete legal health record.[facility]
[2025-04-12 12:40] VITALS: BMI 34.0
--- NOTE | 2025-04-13 | ECG_ITS ---
Test Reason : R00.2 Blood Pressure : */* mmHG Vent. Rate : 67 BPM Atrial Rate : 67 BPM P-R Int : 152 ms QRS Dur : 86 ms QT Int : 356 ms P-R-T Axes : 13 -40 -10 degrees QTcB Int : 376 ms Normal sinus rhythm Left axis deviation Minimal voltage criteria for LVH, may be normal variant ( R in aVL ) Abnormal ECG No previous ECGs available Referred By: Lizzette Merino Electronically Signed By: DIXON MONTERO MD
[2025-04-13 13:16] VITALS: BP 161/88; PULSE 90; RESP 16; O2SAT 95; BMI 35.5
--- NOTE | 2025-04-13 13:29 | HO.ANESPROP2 ---
Documented by User: Lizzette Merino NP 04/13/25 13:48 HPI - Anesthesia Eval Consult details Narrative: 69 yr old male here for left L4-5 MicroLumbar discectomy scheduled for 04/15/25 seen in [facility] on 04/13/25 No recent illness No CP/SOB with walking a few steps over past several weeks 2/2 back pain; prior injury to no trouble doing moderate activity. On oxycodone 10 mg q6hrs, managed by Dr. Nick Quinn at [facility] since 03/25/25 Type 2 DM: A1C 6.7% 10/2024 JOSE: on CPAP Asthma: has not needed albuterol since last winter only 2x Anesthesia Pre-Procedure Meds Is the patient on any of the following meds?: GLP1/DPP4 PMFSH Active Problems Active Problems: All Active Problems (Updated 04/12/25 @ 14:28 by Manjula Flores RN) Lumbar disc herniation (Acute) Past Medical History Medical History Low testosterone Rosacea Hx of encephalitis (1987) DJD (degenerative joint disease) Hx of lipoma Asthma HTN (hypertension) BPH (benign prostatic hyperplasia) Migraines Arthritis Back pain Diabetes Anxiety Dependent on walker for ambulation Numbness in left leg Seasonal allergies JOSE (obstructive sleep apnea) HLD (hyperlipidemia) Family History Family history of problems with anesthesia: No Surgical History Surgical History Hx of colonoscopy (2019) History of Problems with Anesthesia: No Social History Social History Are you a primary landcare facilitator to a significant other at home: No Do you presently have visiting nurse or other home services: No Patient Tobacco Use Status: Never used Tobacco Use of substances other than those prescribed or required for medical reasons: No Have you been hit, kicked, punched, or otherwise hurt by someone within the past year? If so, by whom?: No Are you DNR?: No Advance Directives: No (will bring copy dos) Advance Directives Information Provided: Yes Advance Directives on File: No Poor oral hygiene: No Meds Allergies Allergy/AdvReac Type Severity Reaction Status Date / Time codeine AdvReac Severe Drowsy, GI Verified 04/15/25 08:04 upset Home Medications ?Medication ?Instructions ?Recorded ?Confirmed ?Last Taken ?Type albuterol sulfate 90 mcg/actuation 1 puff inhalation Q4-6H 04/12/25 04/12/25 Unknown History aerosol inhaler cyclobenzaprine 10 mg tablet 10 mg PO TID 04/12/25 04/12/25 Unknown History dulaglutide 1.5 mg/0.5 mL 1.5 mg subcut QWEEK 04/12/25 04/12/25 04/02/25 History subcutaneous pen injector (Trulicity) ezetimibe 10 mg tablet 10 mg PO DAILY 04/12/25 04/12/25 Unknown History metformin 500 mg tablet,extended 2,000 mg PO DAILY 04/12/25 04/12/25 Unknown History release 24 hr oxycodone 10 mg tablet 10 mg PO Q6H PRN severe pain 04/12/25 04/12/25 04/15/25 History sumatriptan succinate 100 mg tablet 100 mg PO NEEDED 04/12/25 04/12/25 Unknown History tadalafil 5 mg tablet 5 mg PO DAILY 04/12/25 04/12/25 Unknown History tamsulosin 0.4 mg capsule 0.4 mg PO BEDTIME 04/12/25 04/12/25 Unknown History testosterone 81 mg topical QAM 04/12/25 04/12/25 Unknown History verapamil 240 mg tablet,extended 240 mg PO BID 04/12/25 04/13/25 04/15/25 History release Exam Height,Weight and Vital Signs: Height 5 ft 9 in Weight 109.2 kg Last Vital Signs Pulse 90 04/13/25 13:16 Resp 16 04/13/25 13:16 BP 161/88 H 04/13/25 13:16 Pulse Ox 95 04/13/25 13:16 O2 Del Method Room Air 04/13/25 13:16 Airway Mallampati Class: III TM Dist: >3cm Neck ROM: Full Loose/Missing/Broken Teeth: No Heart: RRR Lungs: CTAB Assessment and Plan Final Anesthetic Review Family History of Problems with Anesthesia: No History of Problems with Anesthesia: No Documented by User: Radha Chaves NP 04/14/25 08:15 PMFSH Past Medical History Medical History Low testosterone Rosacea Hx of encephalitis (1987) DJD (degenerative joint disease) Hx of lipoma Asthma HTN (hypertension) BPH (benign prostatic hyperplasia) Migraines Arthritis Back pain Diabetes Anxiety Dependent on walker for ambulation Numbness in left leg Seasonal allergies JOSE (obstructive sleep apnea) HLD (hyperlipidemia) Surgical History Surgical History Hx of colonoscopy (2019) Social History Social History Are you a primary landcare facilitator to a significant other at home: No Do you presently have visiting nurse or other home services: No Patient Tobacco Use Status: Never used Tobacco Use of substances other than those prescribed or required for medical reasons: No Have you been hit, kicked, punched, or otherwise hurt by someone within the past year? If so, by whom?: No Are you DNR?: No Advance Directives: No (will bring copy dos) Advance Directives Information Provided: Yes Advance Directives on File: No Poor oral hygiene: No Meds Allergies Allergy/AdvReac Type Severity Reaction Status Date / Time codeine AdvReac Severe Drowsy, GI Verified 04/15/25 08:04 upset Home Medications ?Medication ?Instructions ?Recorded ?Confirmed ?Last Taken ?Type albuterol sulfate 90 mcg/actuation 1 puff inhalation Q4-6H 04/12/25 04/12/25 Unknown History aerosol inhaler cyclobenzaprine 10 mg tablet 10 mg PO TID 04/12/25 04/12/25 Unknown History dulaglutide 1.5 mg/0.5 mL 1.5 mg subcut QWEEK 04/12/25 04/12/25 04/02/25 History subcutaneous [facility] ([facility]) ezetimibe 10 mg tablet 10 mg PO DAILY 04/12/25 04/12/25 Unknown History metformin 500 mg tablet,extended 2,000 mg PO DAILY 04/12/25 04/12/25 Unknown History release 24 hr oxycodone 10 mg tablet 10 mg PO Q6H PRN severe pain 04/12/25 04/12/25 04/15/25 History sumatriptan succinate 100 mg tablet 100 mg PO NEEDED 04/12/25 04/12/25 Unknown History tadalafil 5 mg tablet 5 mg PO DAILY 04/12/25 04/12/25 Unknown History tamsulosin 0.4 mg capsule 0.4 mg PO BEDTIME 04/12/25 04/12/25 Unknown History testosterone 81 mg topical QAM 04/12/25 04/12/25 Unknown History verapamil 240 mg tablet,extended 240 mg PO BID 04/12/25 04/13/25 04/15/25 History release Exam Pertinent Lab Results Pertinent Lab Results: Lab Results 04/13/25 Range/Units 13:59 WBC 6.6 (4.8-10.8) X10*3/uL RBC 4.84 (4.60-5.80) X10*6/uL Hgb 14.7 (14.0-18.0) g/dl Hct 42.7 (42.0-52.0) % MCV 88.2 (80.0-98.0) fL MCH 30.4 (27.0-33.0) pg MCHC 34.4 (31.0-36.0) g/dl RDW 12.8 (11.0-16.0) % Plt Count 185 (160-400) X10*3/uL MPV 9.2 L (9.4-12.4) fL Absolute Nucleated RBC 0.000 (0.0-0.012) X10*3/uL Nucleated RBC % (auto) 0.0 (0.0-0.2) /100WBC Sodium 138 (135-145) mmol/L Potassium 4.0 (3.3-5.1) mmol/L Chloride 105 (96-108) mmol/L Carbon Dioxide 25 (22-29) mmol/L Anion Gap 12 (12-20) BUN 11 (9-16) mg/dL Creatinine 0.81 (0.5-1.4) mg/dL Estim Creat Clear Calc 107.7 Estimated GFR > 60 Random Glucose 206 H (60-115) mg/dL Calcium 9.1 (8.4-10.2) mg/dL Narrative Narrative: EKG 04/2025 Vent. Rate : 67 BPM Atrial Rate : 67 BPM P-R Int : 152 ms QRS Dur : 86 ms QT Int : 356 ms P-R-T Axes : 13 -40 -10 degrees QTcB Int : 376 ms Normal sinus rhythm Left axis deviation Minimal voltage criteria for LVH, may be normal variant ( R in aVL ) Abnormal ECG No previous ECGs available Assessment and Plan Assessment Anesthesia Assessment: Chart Reviewed Documented by User: Maryuri Li MD 04/15/25 08:38 PMFSH Past Medical History Medical History Low testosterone Rosacea Hx of encephalitis (1987) DJD (degenerative joint disease) Hx of lipoma Asthma HTN (hypertension) BPH (benign prostatic hyperplasia) Migraines Arthritis Back pain Diabetes Anxiety Dependent on walker for ambulation Numbness in left leg Seasonal allergies JOSE (obstructive sleep apnea) HLD (hyperlipidemia) Surgical History Surgical History Hx of colonoscopy (2019) Social History Social History Are you a primary landcare facilitator to a significant other at home: No Do you presently have visiting nurse or other home services: No Patient Tobacco Use Status: Never used Tobacco Use of substances other than those prescribed or required for medical reasons: No Have you been hit, kicked, punched, or otherwise hurt by someone within the past year? If so, by whom?: No Are you DNR?: No Advance Directives: No (will bring copy dos) Advance Directives Information Provided: Yes Advance Directives on File: No Poor oral hygiene: No Meds Allergies Allergy/AdvReac Type Severity Reaction Status Date / Time codeine AdvReac Severe Drowsy, GI Verified 04/15/25 08:04 upset Home Medications ?Medication ?Instructions ?Recorded ?Confirmed ?Last Taken ?Type albuterol sulfate 90 mcg/actuation 1 puff inhalation Q4-6H 04/12/25 04/12/25 Unknown History aerosol inhaler cyclobenzaprine 10 mg tablet 10 mg PO TID 04/12/25 04/12/25 Unknown History dulaglutide 1.5 mg/0.5 mL 1.5 mg subcut QWEEK 04/12/25 04/12/25 04/02/25 History subcutaneous pen injector (Trulicity) ezetimibe 10 mg tablet 10 mg PO DAILY 04/12/25 04/12/25 Unknown History metformin 500 mg tablet,extended 2,000 mg PO DAILY 04/12/25 04/12/25 Unknown History release 24 hr oxycodone 10 mg tablet 10 mg PO Q6H PRN severe pain 04/12/25 04/12/25 04/15/25 History sumatriptan succinate 100 mg tablet 100 mg PO NEEDED 04/12/25 04/12/25 Unknown History tadalafil 5 mg tablet 5 mg PO DAILY 04/12/25 04/12/25 Unknown History tamsulosin 0.4 mg capsule 0.4 mg PO BEDTIME 04/12/25 04/12/25 Unknown History testosterone 81 mg topical QAM 04/12/25 04/12/25 Unknown History verapamil 240 mg tablet,extended 240 mg PO BID 04/12/25 04/13/25 04/15/25 History release Assessment and Plan Assessment Anesthesia Assessment: Anesthesia Plan Discussed and Chart Reviewed Final Anesthetic Review NPO: Yes ASA Class: III Final Preanesthetic Review: No Changes in Pt Med Stat, Meds/Allgs Chart Reviewed, Consent Obtained/Reviewed and Anes Risks/Benef Reviewed Patient Risk: Intermediate Procedure Risk: Intermediate Anesthetic Plan Anesthetic Plan: GA Disposition: Standard PACU
[2025-04-13 14:45] LABS: Hematocrit 42.7 % (42.0-52.0); Hemoglobin 14.7 g/dl (14.0-18.0); Mean Corpuscular HGB Conc 34.4 g/dl (31.0-36.0); Mean Corpuscular Hemoglobin 30.4 pg (27.0-33.0); Mean Corpuscular Volume 88.2 fL (80.0-98.0); NRBC Abs Auto 0.000 X10*3/uL (0.0-0.012); NRBC Pct Auto 0.0 /100WBC (0.0-0.2); Platelet Count 185 X10*3/uL (160-400); Red Blood Count 4.84 X10*6/uL (4.60-5.80); White Blood Count 6.6 X10*3/uL (4.8-10.8)
[2025-04-13 15:12] LABS: Anion Gap 12 (12-20); Blood Urea Nitrogen 11 mg/dL (9-16); Calcium 9.1 mg/dL (8.4-10.2); Carbon Dioxide 25 mmol/L (22-29); Chloride 105 mmol/L (96-108); Creatinine Clr Calc Pharmacy 107.7; Estimated Glomerular Filt Rate > 60; Potassium 4.0 mmol/L (3.3-5.1); Sodium 138 mmol/L (135-145)
--- NOTE | 2025-04-13 15:40 | P.DS_ITS ---
DS: Providers Provider Date of Service: 04/15/25 Date of discharge: 04/15/25 Primary care physician: Sasha Mejia PA-C Admitting clinician: Ramu Comer DS: Diagnosis Discharge Diagnosis (1) Lumbar disc herniation: Status: Acute DS: Summary Time Attestation Discharge Coordination Time (in mins): 6 Quality: Safe Use of Opioids Does Pt have an Active Cancer Diagnosis on the Problem List?: No Quality: Stroke Does the patient have a stroke diagnosis?: No Physical Exam Vital Signs: Vital Signs: Last Vital Signs Pulse 90 04/13/25 13:16 Resp 16 04/13/25 13:16 BP 161/88 H 04/13/25 13:16 Pulse Ox 95 04/13/25 13:16 O2 Del Method Room Air 04/13/25 13:16 BMI result Body Mass Index 35.5 DS: Data Data Completed and Pending Labs on day of discharge: Laboratory Results - last 24 hr 04/13/25 13:59 WBC 6.6 RBC 4.84 Hgb 14.7 Hct 42.7 MCV 88.2 MCH 30.4 MCHC 34.4 RDW 12.8 Plt Count 185 MPV 9.2 L Absolute Nucleated RBC 0.000 Nucleated RBC % (auto) 0.0 Sodium 138 Potassium 4.0 Chloride 105 Carbon Dioxide 25 Anion Gap 12 BUN 11 Creatinine 0.81 Estim Creat Clear Calc 107.7 Estimated GFR > 60 Random Glucose 206 H Calcium 9.1 Discharge Plan Discharge Patient Disposition: Home, Self-Care Referrals: Sasha Mejia PA-C [Primary Care Provider, Family Practice] - 1 Week Discharge Medications: New oxycodone 5 mg tablet 5 mg PO Q4H PRN (Reason: pain) Qty: 20 0RF Rx Instructions: Partial Fill upon patient request. docusate sodium [Colace] 100 mg capsule 100 mg PO BID Qty: 20 0RF Continued cyclobenzaprine 10 mg tablet 10 mg PO TID sumatriptan succinate 100 mg tablet 100 mg PO NEEDED tamsulosin 0.4 mg capsule 0.4 mg PO BEDTIME verapamil 240 mg tablet extended release 240 mg PO BID albuterol sulfate 90 mcg/actuation HFA aerosol inhaler 1 puff inhalation Q4-6H metformin 500 mg tablet extended release 24 hr 2,000 mg PO DAILY ezetimibe 10 mg tablet 10 mg PO DAILY tadalafil 5 mg tablet 5 mg PO DAILY oxycodone 10 mg tablet 10 mg PO Q6H PRN (Reason: severe pain) testosterone 20.25 mg/1.25 gram (1.62 %) gel in metered-dose pump 81 mg topical QAM Trulicity 1.5 mg/0.5 mL pen injector 1.5 mg subcut QWEEK Discharge Orders: Discharge Order (Routine); Ordered 04/15/25 Ordered By: Kal Luis Diet: Advance to usual diet Activity on Discharge: As tolerated Activity Restrictions/Additional Instructions: After your spinal surgery we ask you to observe the following restrictions/guidelines: Activity: It is normal to feel some discomfort as you increase your activity, but that will improve with time. We ask you avoid heavy lifting or acitivities that cause pain. As a general rule, 8lbs is a safe limit for lifting right after surgery. Walk as much as you feel comfortable but not to exhaustion. You will feel extra tired the first few days after surgery. Stay well hydrated. It is OK to walk up and down stairs You may return to driving when you are off narcotics (such as vicodin, oxycodone, dilaudid, etc), and you are back to normal functional capacity. If you have any concerns please check with office before driving. Return to work is specific to each patient and each surgery, so please speak with your doctor/PA at first follow up. Please bring paperwork such as FMLA at that time if you need it filled out. Medications: For optimum pain control, it is best to start with a combination of 500 mg of Tylenol every 4 hours with 600 mg of Motrin every 8 hours, and use narcotics as needed in between for breakthrough pain. We will give you a short supply of narcotics after surgery (usually one weeks worth). If you need more please call the office but do not use more than prescribed. You will need to give our office 48 hours notice if you need narcotics refilled and we do not fill narcotics on weekends or evenings. If you are on a narcotic, it is a good idea to take a stool softener such as colace or senna to avoid constipation If you take blood thinner such as aspirin, Plavix, Coumadin, Effient, Eliquis etc for conditions such as Afib, DVT, Pulmonary embolus, coronary disease, stents etc please speak with your surgeon about specific details as to when you can resume these medications. Follow up: Please call the office, , after surgery to arrange a 3 week follow up for wound check. Wound Care: You may remove your dressing on the first day after surgery. ?You may ?leave open to air. Please do not remove the steri strips underneath. they will fall off on their own in one week. IT IS NORMAL FOR THE WOUND TO OOZE OR BE BLOODY FOR A FEW DAYS AFTER SURGERY. ?IF THIS HAPPENS JUST PLACE NEW DRESSING OVER IT TO AVOID STAINING CLOTHES. You may shower on post op day # 1 We ask that you do not let the water soak the wound. If it does get wet, just towel dry lightly. Please do not scrub your incision or place any type of chemical/ointment on the wound. No tub baths, pools or jacuzzis for one month. If you have any leaking or redness from your wound, or fevers, please call office Print Language: Kinyarwanda
[2025-04-15] VITALS (9 sets, daily range): BP systolic 94–133; BP diastolic 51–71; PULSE 70–91; RESP 16–20; TEMP 36.2–36.6; O2SAT 93–97; BMI 35.4
--- NOTE | ~2025-04-15 | FL_ITS ---
EXAMINATION: FL GUIDANCE ONLY HISTORY: L4-5 DISCECTOMY LEFT COMPARISON: None available. TECHNIQUE: Fluoroscopy time: 2.9 seconds. Cumulative Dose: 3.0901 mGy. DAP: 0.9961 mGym2 Images: 1. FINDINGS: A single fluoroscopic spot film of the lumbar spine in the lateral projection demonstrates a probe inferior to the L4 pedicles from a posterior approach. FL/FL guidance in OR IMPRESSION: Fluoroscopy during procedure. Please see procedure report for additional information. Electronically signed by: Ariel Siu MD 04/15/2025 11:05 AM EDT
[2025-04-15] MEDS: Lactated Ringers 1,000 ML 100 ML IVCONT (08:08)
[2025-04-15 08:15] LABS: Glucose, Whole Blood 198 mg/dL (60-115)
--- NOTE | 2025-04-15 08:41 | MHC.SHP ---
Pre-Procedural Eval Section A - 24 Hr Update-Section A only Date of Service: 04/15/25 The patient is an INPATIENT: No Section B - Complete if H&P > 30 days Chief Complaint: Other intervertebral disc displacement, lumbar Details of Present Illness: Left leg pain Allergies: Allergies Allergy/AdvReac Type Severity Reaction Status Date / Time codeine AdvReac Severe Drowsy, GI Verified 04/15/25 08:04 upset Review of Systems Sugical H&P ROS: Negative: Constitution, Cardiovascular, Respiratory, Neurological, Psychiatric, Hem-Onc, Allergic/Immunologic, Gastrointestinal, Genitourinary, Musculoskeletal, Integumentary, Endocrine and Eyes/Ears/Nose/Throat Exam Surgical H&P Exam: Normal: HEENT, Normal: Heart, Normal: Lungs, Normal: Extremities, Normal: Abdomen, Normal: Skin and Normal: Neurological (Awake, alert) Plan Diagnosis/Plan: Unchanged I have reviewed the history and physical and performed a pertinent physical examination on my patient. No changes have occurred unless specified. Left L4-5 microdiskectomy Time Spent With Patient Time: Total time managing care of this patient today ___6_ minutes.
--- NOTE | 2025-04-15 10:41 | W.PM.OPN ---
Operative Note Operative Note Date of Service: 04/15/25 Narrative: Preoperative diagnosis: Left lumbar radiculopathy due to disc herniation Postoperative diagnosis: Same Procedure: Left L4-5 lumbar microdiskectomy with microscope Surgeon: Ramu Comer MD, PhD Investigation Clerk: jennifer Baker This patient is suffering from severe lumbar radiculopathy due to a large extruded disc herniation L4-5 on the left side. The patient was offered a lumbar microdiskectomy to decompress the nerve root. The procedure complications were explained. The patient was consented. The patient was brought to the operating room and endotracheally intubated. The patient was turned in a prone position on the Castro frame. Prepping and draping was done followed by time-out. A mid lumbar incision was made followed by release of the paravertebral muscles on the left side to expose the L4-5 interspace. An intraoperative x-rays obtained to confirm the correct level. The microscope was brought in. A L4 laminotomy was done followed by opening of the flavum ligament. The L5 nerve root was identified and retracted medially to expose the L4-5 disc space. The disc fragment was luxated cranially and with a curved pituitary I was able to retrieve a large fragment from under the axilla of the L4 nerve root, which resulted in an excellent decompression of the thecal sac and exiting nerve roots. The disc space was inspected for residual fragments but none was found. A clear perforation in the annulus was seen though where the original herniated disc was released from. Hemostasis was done. The microscope was removed. Marcaine was injected intramuscularly.The incision was closed in two layers. Steri-Strips used to approximate the incision. An op-site were taken there was used to cover the incision. All sponge and needle counts were correct. Patient was extubated and transported in stable condition to recovery room. this procedure was done with the aid of a physician junior sales assistant who performed the initial exposure until the microscope was brought in and performed the closure of the incision. Anesthesia: General Blood loss: 10 mL Complications: None Specimen: None Surgical time: 40 minutes Disposition: Discharge home
== END 2025-04-15 13:15 | disposition home or self-care (01) ==
LOC: HO.SSS 07:38
PROVIDERS: Nurse Practitioner; PCP Student in an Organized Health Care Education/Training Program; Visit Provider Neurological Surgery
PROC: (CPT 63030; principal; 2025-04-15 09:50)
DX: M51.16 Intervertebral disc disorders with radiculopathy, lumbar region (principal); R26.2 Difficulty in walking, not elsewhere classified; M79.605 Pain in left leg; I10 Essential (primary) hypertension; G47.33 Obstructive sleep apnea (adult) (pediatric); E11.9 Type 2 diabetes mellitus without complications; R26.89 Other abnormalities of gait and mobility; Z88.5 Allergy status to narcotic agent; Z79.84 Long term (current) use of oral hypoglycemic drugs; Z79.85 Long-term (current) use of injectable non-insulin antidiabetic drugs; Z79.899 Other long term (current) drug therapy; Z99.89 Dependence on other enabling machines and devices
CPT/HCPCS: 63030; 36415; 80048; 82947; 85027; 93005; J0131; J0690; J2250; J3010

== ENCOUNTER → 2025-04-15 07:38 | Outpatient (BNV) | payer MEDICARE, OTHER, SELFPAY | PROVIDERS: PCP Student in an Organized Health Care Education/Training Program; Visit Provider Neurological Surgery | DX: M51.16 Intervertebral disc disorders with radiculopathy, lumbar region (principal) | CPT/HCPCS: 63030; 99499 ==

== ENCOUNTER 2025-06-17 11:23 | Outpatient (AMB) | payer MEDICARE, OTHER, SELFPAY ==
--- OUTSIDE RECORDS SUMMARY | 2015-05-21 23:00 | XMS_ITS | Encounter Summary ---
Author Organization [facility] Address [address] [place] [address] Phone Care Team Providers Care Policy Director Name Role Phone Unavailable Primary Care Provider Unavailabl e Reason for Visit * MRI/CAT Scan - Closed Specialty Diagnoses / Procedures Referred By Alexandra del castillo Referred To Contact Procedures MRI Lower Extremity Outside (No Interpretation) [place] [address] Phone: tel: fax: mailto:[email or web address] Referral ID Status Reason Start Date Expiration Date Visits Re quested Visits Authorized [id number] Closed 01/29/2017 01/29/2018 1 1 Encounter Details Date Type Department Care Team (Late st Contact Info) Description 05/22/2015 Hospital Encounter [facility] [address] [place] [address] Max Wren PA-C [address] [place] [address] [place] [address] [email or web address] Social History Tobacco Use Types Packs/Day Years Used Date Smoking Tobacco: Never Smokeless Tobacco: Never Alcohol Use Standard Drinks/Week Comments Yes 0 (1 standard drink = 0.6 oz pur e alcohol) 1 months Education Answer Date Recorded Are you interested in more education? Not on sydnie e 11/30/2022 Are you concerned about learning? Not on file 11/30/2022 No 11/30/2022 No 11/30/2022 Food Answer Date Recorded Within the past 6 months we worried whether our food would run out before we got money to buy more. Never True 03/20/2025 Within the past 6 months the food we bought just didn't last and we didn't have enough money to get more. Never True Residential Stability Answer Date Recor ded What is your housing situation today? I have julia sing 03/20/2025 How many times have you move d in the past 12 months? Zero (I did not move) 03/20/2025 Paying for Meds Answer Date Recorded Do you have trouble paying for medicines? No 03/20/2025 Paying Utility Bills Answer Date Record ed Do you have trouble paying your heating or elect ricity bill? No 03/20/2025 Transportation Answer Date Recorded Has the lack of transportati on kept you from medical appointments or from getting medications? No 03/20/2025 Digital Access Answer Date Recorded No 03/20/2025 Yes 03/20/2025 Do you have reliable internet access at home? Ye s 03/20/2025 Do you have a device (e.g., phone, tablet, computer) with a working camera? Yes 03/20/2025 Intimate Partner Violence Answer Date R ecorded Are you denied basic needs s uch as food, clothing, or medical care? No 03/20/2025 In the past 12 months have y ou been in a relationship with a person who hurts, threatens, or tries to control you? No 03/20/2025 Are you denied basic needs s uch as food, clothing, or medical care? No 03/20/2025 In the past 12 months have y ou been in a relationship with a person who hurts, threatens, or tries to control you? No 03/20/2025 Sex and Gender Information Value Date Recorded Sex Assigned at Not on file Legal Sex Male 11:19 AM EDT Gender Identity Not on file Sexual Orientation Not on file documented as of this encounter Functional Status * Calculated C-SSRS Risk Score (Lifetime/Recent) Answer Date of Assessment Author No Risk Indicated 03/20/2025 10:40 AM EDT Ele Boston RN * [place] Suicide Severity Rating Scale (Screener/Recent Self-Report) Question Answer Date of Assessment Author 1. Wish to be (Past 1 Month) No 025 10:40 AM EDT Ele Boston RN 2. Non-Specific Active Suici edgard Thoughts (Past 1 Month) No 03/20/2025 10:40 AM EDT Ele Boston RN 6. Suicidal Behavior (Lifetime) No 5 10:40 AM EDT Ele Boston RN documented as of this encounter Plan of Treatment Upcoming Encounters Date Type Department Care Team (Late st Contact Info) Description 06/18/2025 10:00 AM EST Office Visit [facility]ics & [facility] Medicine 4 [place] [address] Archana Chaudhary MD [address] [place] [address] Orthopedics & Sports Medicine, [facility]. [place], [place] [phone] [email or web address] 06/30/2025 9:00 AM EST Office Visit [facility] 10 [place] [address] Unknown, Unknown, Merrill Ramos MD [address] [address] [email or web address] documented as of this encounter Procedures Procedure Name Priority Date/Time Associated Diagnosis Comments MRI LOWER EXTREMITY OUTSIDE (NO INTERPRETATION) Routine 05/22/2015 12:00 AM EDT documented in this encounter Results * MRI Lower Extremity Outside (No Interpretation) (05/22/2015 12:00 AM EDT) Narrative [facility] IMG INTERFACES - 01/29/2017 9:33 AM EDT This study is for PACS storage only and not for interpretation. Max Wren PA-C IMG OUTSIDE IMAGING W/OUT IN TERPRETATION Final Result [facility] IMG INTERFACES documented in this encounter Visit Diagnoses Not on filedocumented in this encounter Additional Source Comments The information contained in this document represents components of the legal health record. It is not the complete legal health record.[facility]
--- OUTSIDE RECORDS SUMMARY | 2015-05-21 23:15 | XMS_ITS | Encounter Summary ---
Author Organization [facility] Address [address] [facility] [address] [place] [address] Phone Care Team Providers Care Customer Resource Specialist Name Role Phone Unavailable Primary Care Provider Unavailabl e Reason for Visit * MRI/CAT Scan - Closed Specialty Diagnoses / Procedures Referred By Alexandra del castillo Referred To Contact Procedures MRI Lower Extremity Outside (No Interpretation) [place] [address] Phone: tel: fax: mailto:[email or web address] Referral ID Status Reason Start Date Expiration Date Visits Re quested Visits Authorized [id number] Closed 01/29/2017 01/29/2018 1 1 Encounter Details Date Type Department Care Team (Late st Contact Info) Description 05/22/2015 12:15 AM EDT Hospital Encounter [facility] General Imaging [address] [place] [address] Max Wren [place] [address] [email or web address] Social History Tobacco Use Types Packs/Day Years [...] 10:40 AM EDT Ele Boston RN * [place] Suicide Severity Rating Scale (Screener/Recent Self-Report) Question Answer Date of Assessment Author 1. Wish to be (Past 1 Month) No 025 10:40 AM EDT Ele Boston RN 2. Non-Specific Active Suici edgard Thoughts (Past 1 Month) No 03/20/2025 10:40 AM EDT Ele Boston RN 6. Suicidal Behavior (Lifetime) No 10:40 AM EDT Ele Boston RN documented as of this encounter Plan of Treatment Upcoming Encounters Date Type Department Care Team (Late st Contact Info) Description 06/18/2025 10:00 AM EST Office Visit [facility]opedics & Sports Medicine 4 [place] [address] Archana Chaudhary MD [address] [place] [address] Orthopedics & Sports Medicine, [facility] [place] [address] [email or web address] 06/30/2025 9:00 AM EST Office Visit [facility] 10 [place] [address] Unknown, Unknown, Merrlil Ramos MD [address] [place] [phone] [email or web address] documented as of this encounter Procedures Procedure Name Priority Date/Time Associated Diagnosis Comments MRI LOWER EXTREMITY OUTSIDE (NO INTERPRETATION) Routine 05/22/2015 12:15 AM EDT documented in this encounter Results * MRI Lower Extremity Outside (No Interpretation) (05/22/2015 12:15 AM EDT) Narrative [facility] IMG INTERFACES - 01/29/2017 9:33 AM EDT This study is for PACS storage only and not for interpretation. us Max Wren PA-C IMG OUTSIDE IMAGING W/OUT IN TERPRETATION Final Result [facility]G INTERFACES documented in this encounter Visit Diagnoses Not on filedocumented in this encounter Additional Source Comments The information contained in this document represents components of the legal health record. It is not the complete legal health record.[facility]
--- OUTSIDE RECORDS SUMMARY | 2015-10-19 23:00 | XMS_ITS | Encounter Summary ---
Author Organization [facility] Address [address] [address] Phone Care Team Providers Care Pr Intern Name Role Phone Unavailable Primary Care Provider Unavailabl e Encounter Details Date Type Department Care Team (Late st Contact Info) Description 10/20/2015 Hospital Encounter [facility] 55 [place] [address] Max Wren, ALYSSIA [address] [place], [place] [address] [place] [address] Social History Tobacco Use Types Packs/Day Years [...] Risk Indicated 03/20/2025 10:40 AM EDT Ele Boston, KATHERINE * [place] Suicide Severity Rating Scale (Screener/Recent Self-Report) Question Answer Date of Assessment Author 1. Wish to be (Past 1 Month) No 025 10:40 AM EDT Ele Boston, RN 2. Non-Specific Active Suici edgard Thoughts (Past 1 Month) No 03/20/2025 10:40 AM Ele Mason, RN 6. Suicidal Behavior (Lifetime) No 10:40 AM Ele Mason, RN documented as of this encounter Plan of Treatment Upcoming Encounters Date Type Department Care Team (Late st Contact Info) Description 06/18/2025 10:00 AM EST Office Visit [facility] Orthopedics & Sports Medicine 4 [place] [address] Archana Chaudhary MD [address] [place] [address] Orthopedics & Sports Medicine, [place] [address] [email or web address] 06/30/2025 9:00 AM EST Office Visit [facility]astro[facility]ology [facility] 10 [place] [address] Unknown, Unknown, Merrill Ramos MD [address] [address] [email or web address] documented as of this encounter Procedures Procedure Name Priority Date/Time Associated Diagnosis Comments XR LOWER EXTREMITY OUTSIDE (NO INTERPRETATION) Routine 10/20/2015 12:00 AM EDT documented in this encounter Results * XR Lower Extremity Outside (No Interpretation) (10/20/2015 12:00 AM EDT) Narrative [facility] IMG INTERFACES - 01/29/2017 9:28 AM EDT This study is for PACS storage only and not for interpretation. Max Wren PA-C IMG OUTSIDE IMAGING W/OUT IN TERPRETATION Final Result [facility] IMG INTERFACES documented in this encounter Visit Diagnoses Not on filedocumented in this encounter Additional Source Comments The information contained in this document represents components of the legal health record. It is not the complete legal health record.[facility]
--- OUTSIDE RECORDS SUMMARY | 2025-03-10 08:10 | XMS_ITS ---
Author Organization [facility] Address [address] [place] [address] Care Team Providers Care Plant Technical Specialist Name Role Phone Lazaro Amor Unavailable [phone] Lazaro Amor Do Unavailable Unavailable REASON FOR VISIT F/U MRI LEFT KNEE JPB/RK Encounters Encounter Location Date Provider Diagnosis [facility] [address] [place] [address] 03/10/2025 Lazaro Amor Plan Of Treatment No Information Progress Notes * OLIVERAELISADINORAHDOB:1955 (69 yo M)Acc No.[id number]:03/10/2025 Patient: TIANNA BUI Provider: Ananya Amor DO :1955 A ge:69 Y S ex:Male Date:03/10/2025 Address:[address] [place], [place] [id number] Subjective: * Chief Complaints: * 1 . F/U MRI LEFT KNEE JPB/RK. * Medical History: Objective: * Vitals: Assessment: Plan: * Treatment: * Billing Information: * Visit Code: * Procedure Codes: * Electronic signature of Lazaro Amor DO on 06/17/2025 at 02:38 PM EST Sign off status: Pending * Provider: Ananya Amor DO Date: 0 03/10/2025 Generated for Printi ng/Fadarong/eTransmitting on: 1 08/17/2024 02:38 PM EST
--- NOTE | 2025-06-17 11:25 | HO.SPINEOV ---
Intake Visit Reasons: 2nd post op Intake Note: Mr. Hall is here today for his 2nd post op. Broom Bundler Required: No Allergies codeine Adverse Reaction (Severe, Verified 04/15/25 08:04) Drowsy, GI upset Assessment & Plan Assessment & Plan (1) S/P lumbar microdiscectomy: Code(s): Z98.890 - Other specified postprocedural states Category: Surgical Plan Procedure: Left L4-5 lumbar microdiskectomy Bin is a pleasant 69-year-old male who underwent left L4-[address] Comer a couple of months ago. He comes in today for his 2nd postop visit. He reports that overall the acute pain that he had prior to surgery has resolved. Unfortunately he is still suffering from some left-sided knee pain, which he is being followed by orthopedics for. They recently did an injections in his left knee which he finds were beneficial to help mitigate some of his pain. He did report that he will be moving to [place] very soon, and will not be able to follow up with us again. He did request that when he gets to [place] and finds a PT facility that we write him an Rx for PT for his back. No new neurological deficits the patient ambulates well and rises from a seated position without difficulty. He uses no assistive devices to ambulate. His posterior incision site is closed and well healed There is no need for continued routine follow up with the patient, if he does reach out to our office for a physical therapy referral I am happy to have it sent down to [place]. Anuj Comer MD,PhD [facility] Coding Level of Care Code Global (84402) Diagnoses S/P lumbar microdiscectomy Z98.890
--- OUTSIDE RECORDS SUMMARY | 2025-06-17 14:36 | XMS_ITS | Encounter Summary ---
Author Organization [facility] Address [address] [place] [address] Phone Care Team Providers Care Chemistry Lab Instructor Name Role Phone Segundo Albright MD Primary Care Provider [phone] Yissel Wells Primary Care Provider [phone] Sasha Mejia Primary Care Provider [phone] Reason for Referral * Physical Therapy (Routine) - Closed Specialty Diagnoses / Procedures Referred By Alexandra del castillo Referred To Contact Physical Therapy Diagnoses Encounter for rehabilitation Low Back Pain Procedures Evaluate & Treat Karl Fowler DO Phone: tel: fax: [email or web address] [address] [place] [address] Phone: tel: Referral ID Status Reason Start Date Expiration Date Visits Re quested Visits Authorized [id number] Closed 08/14/2018 08/04/2019 99 [phone] Encounter Details Date Type Department Care Team (Latest Contact Info) Description 08/14/2018 Transcribe Orders [facility] [address] [place] [address] Karl Fowler DO [address] [place] [address] [email or web address] Encounter for rehabilitation (Primary Dx) Social History [...] Description 06/18/2025 10:00 AM EST Office Visit [facility] Orthopedics & Sports Medicine [address] [place] [address] Archana Chaudhary MD [address] [place] [address] Orthopedics & Sports Medicine, [place] [address] [email or web address] 06/30/2025 9:00 AM EST Office Visit [facility] G[facility]enterology Clinic 10 [place] [address] Unknown, Unknown, Merrill Ramos MD [address] [address] documented as of this encounter Procedures Procedure Name Priority Date/Time Associated Diagnosis Comments AMB REFERRAL TO [facility] PHYSICAL THERAPY Routine 09/12/2018 10:08 AM EST Encounter for rehabilitation documented in this encounter Results * Ambulatory referral to [facility] Physical Therapy (09/12/2018 10:08 AM EST) Karl Fowler DO AMB [facility] REFERRALS Final Resu lt documented in this encounter Visit Diagnoses Diagnosis Encounter for rehabilitation- Primary documented in this encounter Care Teams Chemistry Lab Instructor Relationship Specialty Start Date End Date Segundo Albright MD [address] [place] [address] [email or web address] PCP - General 06/11/17 10/25/22 Yissel Wells PA [address] [place] [address] [email or web address] PCP - General Physician Locomotive Firer 10/26/22 03/19/25 Sasha Mejia PA [address] [place] [address] PCP - General Physician Locomotive Firer 03/20/25 documented as of this encounter Additional Source Comments The information contained in this document represents components of the legal health record. It is not the complete legal health record.[facility]
--- OUTSIDE RECORDS SUMMARY | 2025-06-17 14:36 | XMS_ITS | Encounter Summary ---
Author Organization [facility] Address [address] [place] [address] Phone Care Team Providers Care Resist Coater Developer Name Role Phone Yissel Wells Primary Care Provider Sasha Mejia Primary Care Provider [phone] Reason for Visit * Reason Onset Date Comments Establish Care 03/19/2025 Encounter Details Date Type Department Care Team (Late st Contact Info) Description 03/19/2025 Telephone Active [facility] Spine Medicine [address] [place] [address] Yissel Wells PA [address] [place] [address] [email or web address] Establish Care Social History Tobacco Use Types [...] 03/20/2025 10:40 AM Ele Mason, KATHERINE * [place] Suicide Severity Rating Scale (Screener/Recent Self-Report) Question [...] receipt of the faxed referral Central Support Scrubbing Machine Operator (Please do not reply to this user; this inbox is not monitored.) Thank you. * Kal Mitchell - 03/19/2025 9:49 AM EDT Pt called in, said a referral was faxed from [facility] this morning. Please contact and advise claudia appt. Central Support Scrubbing Machine Operator (Please do not reply to this user; this inbox is not monitored.) Thank you. documented in this encounter Plan of Treatment Upcoming Encounters Date Type Department Care Team (Late st Contact Info) Description 06/18/2025 10:00 AM EST Office Visit [facility] Orthopedics & Sports Medicine [address] [place] [address] Archana Chaudhary MD [address] [place] [address] Orthopedics & Sports Medicine, [place] [address] [email or web address] 06/30/2025 9:00 AM EST Office Visit [facility] Gastroenterology Clinic [address] [place] [address] Unknown, Unknown, Merrill Ramos MD [address] [place] [address] documented as of this encounter Visit Diagnoses Not on filedocumented in this encounter Care Teams Resist Coater Developer Relationship Specialty Start Date End Date Yissel Wells PA [address] [place] [address] [email or web address] PCP - General Physician Order Selector 10/26/22 03/19/25 Sasha Mejia PA [address] [place] [address] PCP - General Physician Order Selector 03/20/25 documented as of this encounter Additional Source Comments The information contained in this document represents components of the legal health record. It is not the complete legal health record.[facility]
--- OUTSIDE RECORDS SUMMARY | 2025-06-17 14:36 | XMS_ITS | Encounter Summary ---
Author Organization [facility] Address [address] [place] [address] Phone Care Team Providers Care Art Conservator Name Role Phone Segundo Albright MD Primary Care Provider Yissel Wells Primary Care Provider Sasha Mejia Primary Care Provider [phone] Encounter Details Date Type Department Care Team (Late st Contact Info) Description 09/06/2021 Transcribe Orders [facility] [address] [place] [address] Segundo Albright MD [address] [place] [address] [phone] [email or web address] Social History Tobacco Use Types Packs/Day Years [...] Description 06/18/2025 10:00 AM EST Office Visit [facility] Orth[facility]ics & Sports Medicine [address] [place] [address] Archana Chaudhary MD [address] [place] [address] Orthopedics & Sports Medicine, [facility] [place], [place] [phone] [email or web address] 06/30/2025 9:00 AM EST Office Visit [facility] Gastroenterology Clinic 10 [place] [address] Unknown, Unknown, Merrill Ramos MD [address] [address] [email or web address] documented as of this encounter Visit Diagnoses Not on filedocumented in this encounter Care Teams Art Conservator Relationship Specialty Start Date End Date Segundo Albright MD [address] [place] [address] [email or web address] PCP - General 06/11/17 10/25/22 Yissel Wells PA [address] [place] [address] [email or web address] PCP - General Physician School Speech Therapist 10/26/22 03/19/25 Sasha Mejia PA [address] [place] [address] PCP - General Physician School Speech Therapist 03/20/25 documented as of this encounter Additional Source Comments The information contained in this document represents components of the legal health record. It is not the complete legal health record.[facility]
--- OUTSIDE RECORDS SUMMARY | 2025-06-17 14:36 | XMS_ITS | Encounter Summary ---
Author Organization [facility] Address [address] [place] [address] Phone Care Team Providers Care Business Process Associate Name Role Phone Segundo Albright MD Primary Care Provider [phone] Yissel Wells Primary Care Provider Sasha Mejia Primary Care Provider [phone] Encounter Details Date Type Department Care Team (Latest Contact Info) Description 09/06/2021 Transcribe Orders [facility] [address] [place] [address] Yissel Wells PA [address] [place] [phone] [email or web address] Type 2 diabetes mellitus without complication, unspecified whether laborer marine terminal insulin use (Primary Dx); Elevated liver function [...] 10:00 AM EST Office Visit [facility] Orthopedics & Sports Medicine [address] [place] [address] Archana Chaudhary MD [address] [place] [address] Orthopedics & Sports Medicine, [facility] [place] [address] [email or web address] 06/30/2025 9:00 AM EST Office Visit [facility] Gastroenterology Clinic 10 [place] [address] Unknown, Unknown, Merrill Ramos MD [address] [address] [email or web address] documented as of this encounter Results * (ABNORMAL) Lipid panel (09/07/2021 10:04 AM EST) HDL 43 mg/dL [facility] Comment: Interpretation <40 mg/dL: Low HDL cholesterol (major risk factor for CHD) Greater than or equal to 60 mg/dL: High HDL cholesterol ( negative risk factor for CHD) HDL - cholesterol is affected by a number of factors, e.g. smoking, excerise, hormones, sex and age. CHOLESTEROL 245(H) 0 - 240 mg/dL [facility] TRIGLYCERIDES 230(H) 30 - 160 mg/dL [facility] LDL 156(H) 50 - 129 mg/dL [facility] Comment: LDL levels in terms of risk for coronary heart disease: <100 mg/dL: Optimal 100-129 mg/dL: Near or above optimal 130-159 mg/dL: Borderline high 160-189 mg/dL: High >190 mg/dL: Very High CARDIAC RISK RATIO 5.7(H) 3.4 - 5.0 C [facility] Blood 09/07/2021 10:0 4 AM EST 09/07/2021 10:12 AM EST us Yissel CRAIG LAB BLOOD BKR ORDERABLES Fin al Result [facility] [address] [place] [address] * (ABNORMAL) Hemoglobin A1c (09/07/2021 10:04 AM EST) HEMOGLOBIN A1C 6.0(H) 4.3 - 5.8 % [facility] Blood 09/07/2021 10:0 4 AM EST 09/07/2021 10:13 AM EST Yissel CRAIG LAB BLOOD BKR ORDERABLES Fin al Result Performing Organization Address City/[facility]/ZIP Co de Phone Number [address] [address] * (ABNORMAL) Comprehensive metabolic panel (09/07/2021 10:04 AM EST) SODIUM 135 133 - 146 mmol/L [facility] POTASSIUM 4.5 3.3 - 5.1 mmol/L [facility] CHLORIDE 101 96 - 108 mmol/L [facility] CO2 21 21 - 35 mmol/L [facility] BUN 16 6 - 19 mg/dL [facility] CREATININE 1.00 0.5 - 1.5 mg/dL [facility] GLUCOSE 123(H) 70 - 99 mg/dL [facility] ALBUMIN 4.7 3.9 - 4.8 g/dL [facility] TOTAL PROTEIN 7.0 6.5 - 8.0 g/dL [facility] CALCIUM 9.6 8.4 - 10.3 mg/dL [facility] ALKALINE PHOSPHATASE 57 39 - 117 U/L [facility] TOTAL BILIRUBIN 0.5 0.0 - 1.2 mg/dL [facility] AST 28 0 - 37 U/L [facility] ALT 25 0 - 40 U/L [facility] GLOBULIN 2.3 1 - 4.8 g/dL [facility] EGFR 85 >59 mL/min/1.7 3m2 [facility] Comment:Estimated glomerular filtration rate calculated using the CKD-EPI refit equation. ANION GAP 18 10 - 20 mmol/L [facility] Blood 09/07/2021 10:0 4 AM EST 09/07/2021 10:12 AM EST Yissel CRAIG LAB BLOOD BKR ORDERABLES Fin al Result Performing Organization Address City/[facility]/ZIP Co de Phone Number [address] [address] * (ABNORMAL) Microalbumin/creatinine ratio, random urine (09/07/2021 10:04 AM EST) URINE MICROALBUMIN 14.2(H) 0 - 2.3 mg/dL [facility] URINE CREATININE 515 mg/dL [facility] MICROALB/CRE RATIO 27.6(H) 0 - 20 mg/g Cre [facility] Urine (Urine) 09/07/2021 10: 04 AM EST 09/07/2021 10:17 AM EST Yissel CRAIG LAB URINE ORDERABLES Final R esult Performing Organization Address City/[facility]/ZIP Co de Phone Number [facility] [address] [place] [address] * PSA, free and total (09/07/2021 10:04 AM EST) PSA, TOTAL 0.60 <=4.5 ng/mL [facility] FREE PSA 0.3 ng/mL [facility] FREE/TOT PSA RATIO SEE NOTE ratio [facility] Comment: (NOTE) [...] 10:12 AM EST Yissel CRAIG LAB BLOOD BKR ORDERABLES Fin al Result Performing Organization Address City/[facility]/ZIP Co de Phone Number [facility] [address] [place] [address] * CBC (09/07/2021 10:04 AM EST) WBC 6.99 4.00 - 11.00 K/uL [facility] RBC 5.00 3.90 - 5.69 M/uL [facility] HGB 15.5 12.4 - 17.3 g/dL [facility] HCT 43.7 37.0 - 51.0 % [facility] PLT 224 140 - 430 K/uL [facility] MCV 87.4 78.0 - 97.0 fL [facility] MCH 31.0 25.0 - 33.0 pg [facility] MCHC 35.5 32.0 - 36.0 g/dL [facility] RDW 12.9 11.0 - 15.0 % [facility] MPV 10.2 8.4 - 12.8 fl [facility] NRBC 0.00 0 /100 WBCs [facility] ABSOLUTE NRBC 0.00 0 K/uL [facility] Blood 09/07/2021 10:0 4 AM EST 09/07/2021 10:12 AM EST us Yissel CRAIG LAB BLOOD BKR ORDERABLES Fin al Result [facility] [address] [place] [address] documented in this encounter Visit Diagnoses Diagnosis Type 2 diabetes mellitus without complication, unspecified whether jail insulin use- Primary Elevated liver function tests Other abnormal blood chemistry documented in this encounter Care Teams Business Process Associate Relationship Specialty Start Date End Date Segundo Albright MD [address] [place] [address] [email or web address] PCP - General 06/11/17 10/25/22 Yissel Wells PA [address] [place] [address] [email or web address] PCP - General Physician Senior Front End Developer 10/26/22 03/19/25 Sasha Mejia PA [address] [place] [address] PCP - General Physician Senior Front End Developer 03/20/25 documented as of this encounter Additional Source Comments The information contained in this document represents components of the legal health record. It is not the complete legal health record.[facility]
--- OUTSIDE RECORDS SUMMARY | 2025-06-17 14:36 | XMS_ITS | Encounter Summary ---
Author Organization [facility] Address [address] [place] [address] Phone Care Team Providers Care Manager Part Name Role Phone Segundo Albright MD Primary Care Provider Yissel Wells Primary Care Provider Sasha Mejia Primary Care Provider Encounter Details Date Type Department Care Team (Late Contact Info) Description 03/14/2018 Transcribe Orders [facility] [address] [place] [address] Esme Lopez NP [address] [place] [address] [email or web address] Diabetes mellitus with no complication (Primary Dx) [...] Department Care Team (Late Contact Info) Description 06/18/2025 10:00 AM EST Office Visit [facility] Orthopedics & Sports Medicine [address] [place] [address] Archana Chaudhary MD [address] [place] [address] Orthopedics & Sports Medicine, [facility] [place] [address] [email or web address] 06/30/2025 9:00 AM EST Office Visit [facility] Gastroenterology Clinic 10 [place] [address] Unknown, Unknown, MD Roland, Merrill Hernández MD [address] [address] [email or web address] documented as of this encounter Visit Diagnoses Diagnosis Diabetes mellitus with no complication- Primary Type II or unspecified type diabetes mellitus without mention of complication, not stated as uncontrolled documented in this encounter Care Teams Manager Part Relationship Specialty Start Date End Date Segundo Albright MD [address] [place] [address] [email or web address] PCP - General 06/11/17 10/25/22 Yissel Wells PA [address] [place] [address] [email or web address] PCP - General Physician Agricultural Engineering Technicians 10/26/22 03/19/25 Sasha Mejia PA [address] [place] [address] PCP - General Physician Agricultural Engineering Technicians 03/20/25 documented as of this encounter Additional Source Comments The information contained in this document represents components of the legal health record. It is not the complete legal health record.[facility]
--- OUTSIDE RECORDS SUMMARY | 2025-06-17 14:36 | XMS_ITS | Encounter Summary ---
Author Organization [facility] Address [address] [facility] [address] [place] [address] Phone Care Team Providers Care Javascript Front End Developer Name Role Phone Yissel Wells Primary Care Provider Sasha Mejia Primary Care Provider [phone] Encounter Details Date Type Department Care Team (Late st Contact Info) Description 01/14/2025 Transcribe Orders [facility] [address] [place] [address] Elizabeth Roblero MD [address] [place] [address] Impetigo (Primary Dx) Social History Tobacco Use [...] Description 06/18/2025 10:00 AM EST Office Visit [facility] Orthopedics & Sports Medicine 4 [place] [address] Archana Chaudhary MD 4 [facility] Orthopedics & Sports Medicine, [facility] [place] [address] [email or web address] 06/30/2025 9:00 AM EST Office Visit [facility] Gastroenterology Clinic 10 [place] [address] Unknown, Unknown, Merrill Ramos MD [address] [address] [email or web address] documented as of this encounter Results * Wound culture/smear (01/14/2025 3:52 PM EDT) Special Requests None 01/14/2025 3:52 PM EDT [facility] GRAM STAIN NO ORGANISMS SEEN 01/15/2025 8:[address] EDT [facility] Wound Culture/Smear NO GROWTH 48HRS 01/16/2025 10:[address] EDT [facility] Other (Nasal) 01/14/2025 3:5 2 PM EDT 01/14/2025 3:53 PM EDT Comment:LEFT NASAL ALAR GROO VE us Elizabeth Roblero MD LAB MICROBIOLOGY CULTURE OR DERABLES Final Result [facility] [address] [place] [address] documented in this encounter Visit Diagnoses Diagnosis Impetigo- Primary documented in this encounter Care Teams Javascript Front End Developer Relationship Specialty Start Date End Date Yissel Wells PA [address] [place] [address] [email or web address] PCP - General Physician Hydrogenation Operator 10/26/22 03/19/25 Sasha Mejia PA [address] [place] [address] PCP - General Physician Hydrogenation Operator 03/20/25 documented as of this encounter Additional Source Comments The information contained in this document represents components of the legal health record. It is not the complete legal health record.[facility]
--- OUTSIDE RECORDS SUMMARY | 2025-06-17 14:36 | XMS_ITS | Encounter Summary ---
Author Organization [facility] Address [address] [place] [address] Phone Care Team Providers Care Plugger Name Role Phone Segundo Albright MD Primary Care Provider Yissel Wells Primary Care Provider Sasha Mejia Primary Care Provider Encounter Details Date Type Department Care Team (Latest Contact Info) Description 09/06/2021 Transcribe Orders [facility] 29 [place] [address] Vanna Alvarado, PA-C [address] [place] [address], [address] [place] [address] [email or web address] Testicular hypofunction (Primary Dx) Social History Tobacco [...] Description 06/18/2025 10:00 AM EST Office Visit [facility] Orthopedics & Sports Medicine [address] [place] [address] Archana Chaudhary MD [address] [place] [address] Orth[facility] [place], [place] [phone] [email or web address] 06/30/2025 9:00 AM EST Office Visit [facility] Gastroenterology Clinic 10 [place] [address] Unknown, Unknown, MD Roland, Merrill Hernández MD [address] [address] [email or web address] documented as of this encounter Results * (ABNORMAL) Testosterone, total and free (09/07/2021 10:04 AM EST) FREE TESTOSTERONE 45.8(H) 3.67 - 13.9 ng/dL [facility] Comment: (NOTE) ADDITIONAL INFORMATION Testing performed by [facility]. This test was developed and its performance characteristics determined by [facility] in a manner consistent with CLIA requirements. This test has not been cleared or approved by the U.S. Food and Drug Administration. TESTOSTERONE, TOTAL 1,090(H) 240 - 950 ng/dL [facility] Comment: (NOTE) ADDITIONAL INFORMATION Testing performed by Liquid Chromatography-Tandem Mass Spectrometry (LC-MS/MS). This test was developed and its performance characteristics determined by [facility] in a manner consistent with CLIA requirements. This test has not been cleared or approved by the U.S. Food and Drug Administration. Blood 09/07/2021 10:0 4 AM EST 09/07/2021 10:12 AM EST us Vanna Alvarado PA-C LAB BLOOD BKR ORDERABLES Final Result [facility] [address] [place] [address] documented in this encounter Visit Diagnoses Diagnosis Testicular hypofunction- Primary Other testicular hypofunction documented in this encounter Care Teams Plugger Relationship Specialty Start Date End Date Segundo Albright MD [address] [place] [address] [email or web address] PCP - General 06/11/17 10/25/22 Yissel Wells PA [address] [place] [address] [email or web address] [email or web address] - General Physician Electric Power Machine Operator 10/26/22 03/19/25 Sasha Mejia PA [address] [place] [address] PCP - General Physician Electric Power Machine Operator 03/20/25 documented as of this encounter Additional Source Comments The information contained in this document represents components of the legal health record. It is not the complete legal health record.[facility]
--- OUTSIDE RECORDS SUMMARY | 2025-06-17 14:37 | XMS_ITS | Encounter Summary ---
Author Organization [facility] Address [address] [place] [address] Phone Care Team Providers Care Systems Technician Name Role Phone Segundo Albright MD Primary Care Provider [phone] Yissel [place] Primary Care Provider Sasha Mejia Primary Care Provider [phone] Encounter Details Date Type Department Care Team (Late Contact Info) Description 06/11/2017 Procedure Pass [facility], [address] [address] Social History Tobacco Use Types Packs/Day Years [...] Description 06/18/2025 10:00 AM EST Office Visit [facility] Orthopedics & Sports Medicine [address] [place] [address] Archana Chaudhary MD [address] [place] [address] Orth[facility] [place] [address] [email or web address] 06/30/2025 9:00 AM EST Office Visit [facility] 10 [place] [address] Unknown, Unknown, Merrill Ramos MD [address] [address] documented as of this encounter Visit Diagnoses Not on filedocumented in this encounter Care Teams Systems Technician Relationship Specialty Start Date End Date Segundo Albright MD 70 [place] [address] PCP - General 06/11/17 10/25/22 Yissel [place] PA [address] [place] [address] PCP - General Physician Vb Net Developer 10/26/22 03/19/25 Sasha Mejia PA 70 [place] [address] PCP - General Physician Vb Net Developer 03/20/25 documented as of this encounter Additional Source Comments The information contained in this document represents components of the legal health record. It is not the complete legal health record.[facility]
--- OUTSIDE RECORDS SUMMARY | 2025-06-17 14:37 | XMS_ITS | Encounter Summary ---
Author Organization [facility] Address [address] [place] [address] Phone Care Team Providers Care Tin Whiz Machine Operator Name Role Phone Segundo Albright MD Primary Care Provider [phone] Segundo Albright MD Primary Care Provider [phone] Yissel [place] Primary Care Provider Sasha Mejia Primary Care Provider Encounter Details Date Type Department Care Team (Late st Contact Info) Description 01/29/2017 Procedure Pass [facility] Imaging [address] [place] [address] Social History Tobacco Use Types Packs/Day Years [...] [facility] [address] [place] [address] [id number] Archana Chaudhary MD [address] [place] [address] Orthopedics & Sports Medicine, [facility] [place], [place] [phone] [email or web address] 06/30/2025 9:00 AM EST Office Visit [facility] Gastroenterology Clinic 10 [place] [address] Unknown, Unknown, Merrill Ramos MD [address] [address] [email or web address] documented as of this encounter Visit Diagnoses Not on filedocumented in this encounter Care Teams Tin Whiz Machine Operator Relationship Specialty Start Date End Date Segundo Albright MD 70 [place] [address] [email or web address] PCP - General Family Medicine 01/02/17 06/10/17 Segundo Albright MD 70 [place] [address] [email or web address] PCP - General 06/11/17 10/25/22 Yissel [place] PA 70 [place] [address] [email or web address] PCP - General Physician Graphic Art Designer 10/26/22 03/19/25 Sasha Mejia PA 70 [place] [address] PCP - General Physician Graphic Art Designer 03/20/25 documented as of this encounter Additional Source Comments The information contained in this document represents components of the legal health record. It is not the complete legal health record.[facility]
--- OUTSIDE RECORDS SUMMARY | 2025-06-17 14:37 | XMS_ITS | Encounter Summary ---
Author Organization [facility] Address [address] [place] [address] Phone Care Team Providers Care Fiber Optic Central Office Installer Name Role Phone Segundo Albright MD Primary Care Provider [phone] Yissel [place] Primary Care Provider Sasha Mejia Primary Care Provider Encounter Details Date Type Department Care Team (Late st Contact Info) Description 08/18/2020 Procedure Pass [address] [place] [address] Social History Tobacco Use Types Packs/Day Years [...] Description 06/18/2025 10:00 AM EST Office Visit [facility] Orthopedics & Sports Medicine [address] [place] [address] Archana Chaudhary MD [address] [place] [address] [facility] [place] [address] [email or web address] 06/30/2025 9:00 AM EST Office Visit [facility] Gastro[facility] 10 [place] [address] Unknown, Unknown, Merrill Ramos MD [address] [address] [email or web address] documented as of this encounter Visit Diagnoses Not on filedocumented in this encounter Care Teams Fiber Optic Central Office Installer Relationship Specialty Start Date End Date Segundo Albright MD [address] [place] [address] [email or web address] PCP - General 06/11/17 10/25/22 Yissel [place] PA [address] [place] [address] [email or web address] PCP - General Physician Industrial Property Appraiser 10/26/22 03/19/25 Sasha Mejia PA [address] [place] [id number] PCP - General Physician Industrial Property Appraiser 03/20/25 documented as of this encounter Additional Source Comments The information contained in this document represents components of the legal health record. It is not the complete legal health record.[facility]
--- OUTSIDE RECORDS SUMMARY | 2025-06-17 14:37 | XMS_ITS | Encounter Summary ---
Author Organization [facility] Address [address] [place] [address] Phone Care Team Providers Care Scheduling Representative Name Role Phone Segundo Albright MD Primary Care Provider Yissel [place] Primary Care Provider [phone] Sasha Mejia Primary Care Provider [phone] Encounter Details Date Type Department Care Team (Latest Contact Info) Description 06/10/2019 Transcribe Orders [facility] 29 [place] [address] Yissel [place] PA [address] [place] [address] [email or web address] Type 2 diabetes mellitus without complication, [...] [facility] [address] [place] [address] [phone] Archana Chaudhary MD [address] [place] [address] Orthopedics & Sports Medicine, [facility] [place] [address] [email or web address] 06/30/2025 9:00 AM EST Office Visit [facility] Gastroenterology Clinic 10 [place] [address] Unknown, Unknown, Merrill Ramos MD [address] [address] [email or web address] documented as of this encounter Results * Microalbumin/creatinine ratio, random urine (06/13/2019 11:54 AM EST) URINE MICROALBUMIN <1.2 0 - 2.3 mg/dL [facility] URINE CREATININE 230 mg/dL [facility] MICROALB/CRE RATIO NOT CALCULATED 0 - 20 mg/g Cre [facility] Comment:due to Microalbumin <1.2 Urine (Urine) 06/13/2019 11: 54 AM EST 06/13/2019 11:58 AM EST us Yissel [facility] URINE ORDERABLES Final R esult Performing Organization Address City/State/[facility] Co de Phone Number [facility] 30 [place] [address] documented in this encounter Visit Diagnoses Diagnosis Type 2 diabetes mellitus without complication, unspecified whether rodent exterminator insulin use- Primary documented in this encounter Care Teams Scheduling Representative Relationship Specialty Start Date End Date Segundo Albright MD 70 [place] [address] [email or web address] PCP - General 06/11/17 10/25/22 Yissel [place] PA [address] [place] [address] [email or web address] PCP - General Physician Bleach Liquor Maker 10/26/22 03/19/25 Sasha Mejia PA [address] [place] [id number] PCP - General Physician Bleach Liquor Maker 03/20/25 documented as of this encounter Additional Source Comments The information contained in this document represents components of the legal health record. It is not the complete legal health record.[facility]
--- OUTSIDE RECORDS SUMMARY | 2025-06-17 14:37 | XMS_ITS | Encounter Summary ---
Author Organization [facility] Address [address] [place] [address] Phone Care Team Providers Care Crown And Bridge Dental Lab Technician Name Role Phone Segundo Albright MD Primary Care Provider Yissel [place] Primary Care Provider Sasha Mejia Primary Care Provider [phone] Encounter Details Date Type Department Care Team (Late st Contact Info) Description 12/02/2017 Transcribe Orders [facility] 29 [place] [address] Segundo Albright MD [address] [place] [address] [phone] [email or web address] Social History Tobacco Use Types Packs/Day Years [...] [facility] [address] [place] [address] Archana Chaudhary MD [address] [place] [address] [facility] [place], [place] [phone] [email or web address] 06/30/2025 9:00 AM EST Office Visit [facility] Gastroenterology Clinic 10 [place] [address] Unknown, Unknown, Merrill Ramos MD [address] [address] [email or web address] documented as of this encounter Visit Diagnoses Not on filedocumented in this encounter Care Teams [employer] Dental Lab Technician Relationship Specialty Start Date End Date Segundo Albright MD 70 [place] [address] [email or web address] PCP - General 06/11/17 10/25/22 Yissel [place] PA 70 [place] [address] [email or web address] PCP - General Physician Foam Rubber Mixer 10/26/22 03/19/25 Sasha Mejia PA [address] [place] [address] PCP - General Physician Foam Rubber Mixer 03/20/25 documented as of this encounter Additional Source Comments The information contained in this document represents components of the legal health record. It is not the complete legal health record.[facility]
--- OUTSIDE RECORDS SUMMARY | 2025-06-17 14:37 | XMS_ITS | Encounter Summary ---
Author Organization [facility] Address [address] [place] [address] Phone Care Team Providers Care Barge Hand Name Role Phone Segundo Albright MD Primary Care Provider [phone] Yissel [place] Primary Care Provider Sasha Mejia Primary Care Provider [phone] Reason for Referral * MRI/CAT Scan - Closed Specialty Diagnoses / Procedures Referred By Contac t Referred To Contact Radiology Diagnoses Lumbar radiculopathy Procedures MRI Lumbar Spine Karl Fowler DO Phone: tel: fax: mailto:[email or web address] Referral ID Status Reason Start Date Expiration Date Visits Re quested Visits Authorized [id number] Closed 08/18/2020 10/17/2020 1 1 Encounter Details Date Type Department Care Team (Latest Contact Info) Description 08/18/2020 Ancillary Orders Virtual Department 30 [place] [address] Karl Fowler DO [address] [place] [address] [email or web address] Lumbar radiculopathy Social History Tobacco Use Types [...] Description 06/18/2025 10:00 AM EST Office Visit [facility] Orthopedics & Sports Medicine 4 [place] [address] Archana Chaudhary MD [address] [place] [address] Orthopedics & Sports Medicine, [facility] [place], [place] [phone] [email or web address] 06/30/2025 9:00 AM EST Office Visit [facility] Gastroenterology Clinic 10 [place] [address] Unknown, Unknown, Merrill Ramos MD [address] [place] [address] documented as of this encounter Results * [...] protrusion at L5-S1 without root compression. POS [id number] Narrative 08/25/2020 1:46 PM EST TECHNIQUE: 1.5 [...] right proximal foraminal focal disc protrusion at L5-D0gloxifi root compression. POS [id number] Karl Fowler DO IMG MR XSPECIALTY Final Resu lt documented in this encounter Visit Diagnoses Diagnosis Lumbar radiculopathy Thoracic or lumbosacral neuritis or radiculitis, unspecified Lumbar radiculopathy Thoracic or lumbosacral neuritis or radiculitis, unspecified documented in this encounter Care Teams Barge Hand Relationship Specialty Start Date End Date Segundo Albright MD [address] [place] [address] [email or web address] PCP - General 06/11/17 10/25/22 Yissel [place] PA [address] [place] [address] [email or web address] PCP - General Physician Income Tax Expert 10/26/22 03/19/25 Sasha Mejia PA 70 [place] [address] PCP - General Physician Income Tax Expert 03/20/25 documented as of this encounter Additional Source Comments The information contained in this document represents components of the legal health record. It is not the complete legal health record.[facility]
--- OUTSIDE RECORDS SUMMARY | 2025-06-17 14:37 | XMS_ITS | Encounter Summary ---
Author Organization [facility] Address [address] [place] [address] Phone Care Team Providers Care Digital Marketing Intern Name Role Phone Segundo Albright MD Primary Care Provider Yissel [place] Primary Care Provider [phone] Sasha Mejia Primary Care Provider [phone] Encounter Details Date Type Department Care Team (Latest Contact Info) Description 04/08/2019 Transcribe Orders [facility] [place] 29 [place] [address] Segundo Albright MD [address] [place] [address] [phone] [email or web address] Diabetes mellitus with no complication [...] Description 06/18/2025 10:00 AM EST Office Visit [facility] Orthopedics & Sports Medicine [address] [place] [address] Archana Chaudhary MD [address] [place] [address] Orthopedics & Sports Medicine, [place] [address] [email or web address] 06/30/2025 9:00 AM EST Office Visit [facility] Gastroenterology Clinic 10 [place] [address] Unknown, Unknown, Merrill Ramos MD [address] [address] documented as of this encounter Results * Lipid panel (04/08/2019 8:44 AM EDT) HDL 50 mg/dL [facility] Comment: Interpretation <40 mg/dL: Low HDL cholesterol (major risk factor for CHD) Greater than or equal to 60 mg/dL: High HDL cholesterol ( negative risk factor for CHD) HDL - cholesterol is affected by a number of factors, e.g. smoking, excerise, hormones, sex and age. CHOLESTEROL 192 0 - 240 mg/dL [facility] TRIGLYCERIDES 153 30 - 160 mg/dL [facility] LDL 111 50 - 129 mg/dL [facility] Comment: LDL levels in terms of risk for coronary heart disease: <100 mg/dL: Optimal 100-129 mg/dL: Near or above optimal 130-159 mg/dL: Borderline high 160-189 mg/dL: High >190 mg/dL: Very High CARDIAC RISK RATIO 3.8 3.4 - 5.0 [facility] Blood 04/08/2019 8:44 AM EDT 04/08/2019 8:55 AM EDT us Segundo Albright MD LAB BLOOD BKR ORDERABLES Final Result [facility] [address] [place] [address] * (ABNORMAL) Hemoglobin A1c (04/08/2019 8:44 AM EDT) HEMOGLOBIN A1C 7.6(H) 4.3 - 5.8 % [facility] Blood 04/08/2019 8:44 AM EDT 04/08/2019 8:55 AM EDT us Segundo Albright MD LAB BLOOD BKR ORDERABLES Final Result Performing Organization Address City/[facility]/ZIP Co de Phone Number [address] [address] * (ABNORMAL) Basic metabolic panel (04/08/2019 8:44 AM EDT) SODIUM 138 133 - 146 mmol/L [facility] CHLORIDE 101 96 - 108 mmol/L [facility] POTASSIUM 4.3 3.3 - 5.1 mmol/L [facility] CO2 26 21 - 35 mmol/L [facility] BUN 12 6 - 19 mg/dL [facility] CREATININE 0.90 0.5 - 1.5 mg/dL [facility] GLUCOSE 191(H) 70 - 99 mg/dL [facility] CALCIUM 9.4 8.4 - 10.3 mg/dL [facility] EGFR 92 >59 mL/min/1.7 3m2 [facility] Comment:If patient is black, multiply result by 1.159. Estimated glomerular filtration rate calculated using the CKD-EPI equation. ANION GAP 15 10 - 20 mmol/L [facility] Blood 04/08/2019 8:44 AM EDT 04/08/2019 8:55 AM EDT us Segundo Albright MD LAB BLOOD BKR ORDERABLES Final Result Performing Organization Address [facility] Co de Phone Number [address] [address] documented in this encounter Visit Diagnoses Diagnosis Diabetes mellitus with no complication- Primary Type II or unspecified type diabetes mellitus without mention of complication, not stated as uncontrolled documented in this encounter Care Teams Digital Marketing Intern Relationship Specialty Start Date End Date Segundo Albright MD [address] [place] [address] [email or web address] PCP - General 06/11/17 10/25/22 Yissel [place] PA [address] [place] [address] [email or web address] PCP - General Physician Parcel Contractor 10/26/22 03/19/25 Sasha Mejia PA [address] [place] [address] PCP - General Physician Parcel Contractor 03/20/25 documented as of this encounter Additional Source Comments The information contained in this document represents components of the legal health record. It is not the complete legal health record.[facility]
--- OUTSIDE RECORDS SUMMARY | 2025-06-17 14:37 | XMS_ITS | Encounter Summary ---
Author Organization [facility] Address [address] [place] [address] Phone Care Team Providers Care Armed Security Professional Name Role Phone Segundo Albright MD Primary Care Provider [phone] Yissel [place] Primary Care Provider [phone] Sasha Mejia Primary Care Provider [phone] Reason for Referral * MRI/CAT Scan - Closed Specialty Diagnoses / Procedures Referred By Contac t Referred To Contact Radiology Diagnoses Congenital multiple renal cysts Procedures CT Abdomen Only (No Pelvis) Aquilino Montenegro MD Phone: tel: fax: mailto:[email or web address] Referral ID Status Reason Start Date Expiration Date Visits Re quested Visits Authorized [id number] Closed 10/19/2022 10/19/2023 1 1 Encounter Details Date Type Department Care Team (Latest Contact Info) Description 10/19/2022 Transcribe Orders Virtual Department 30 [place] [address] Aquilino Montenegro MD [address] [place] [address], [address] [address] [email or web address] Congenital multiple renal cysts (Primary Dx) Social [...] Description 06/18/2025 10:00 AM EST Office Visit [facility] Orthopedics & Sports Medicine [address] [place] [address] Archana Chaudhary MD [address] [place] [address] Orthopedics & Sports Medicine, [facility] [place] [address] [email or web address] 06/30/2025 9:00 AM EST Office Visit [facility] Gastroenterology Clinic 10 [place] [address] Unknown, Unknown, Merrill Ramos MD [address] [place] [address] documented as of this encounter Results * [...] right renal cysts. No solid renal mass. us Aquilino Montenegro MD IMG CT XSPECIALTY ORDERABLES F inal Result * (ABNORMAL) Basic metabolic panel (10/26/2022 11:33 AM EDT) SODIUM 139 133 - 146 mmol/L [facility] CHLORIDE 105 96 - 108 mmol/L [facility] POTASSIUM 4.4 3.3 - 5.1 mmol/L [facility] CO2 25 21 - 35 mmol/L [facility] BUN 13 6 - 19 mg/dL [facility] CREATININE 0.90 0.5 - 1.5 mg/dL [facility] GLUCOSE 128(H) 70 - 99 mg/dL [facility] CALCIUM 9.4 8.4 - 10.3 mg/dL [facility] EGFR 95 >59 mL/min/1.7 3m2 [facility] Comment:Estimated glomerular filtration rate calculated using the CKD-EPI refit equation. ANION GAP 13 10 - 20 mmol/L [facility] Blood 10/26/2022 11:3 3 AM EDT 10/26/2022 11:37 AM EDT us Aquilino Montenegro MD LAB BLOOD BKR ORDERABLES Final Result [facility] 30 [place] [address] documented in this encounter Visit Diagnoses Diagnosis Congenital multiple renal cysts- Primary Congenital multiple renal cysts documented in this encounter Care Teams Armed Security Professional Relationship Specialty Start Date End Date Segundo Albright MD 70 [place] [address] [email or web address] PCP - General 06/11/17 10/25/22 Yissel [place] PA [address] [place] [address] [email or web address] PCP - General Physician Portal Administrator 10/26/22 03/19/25 Sasha Mejia PA [address] [place] [address] PCP - General Physician Portal Administrator 03/20/25 documented as of this encounter Additional Source Comments The information contained in this document represents components of the legal health record. It is not the complete legal health record.[facility]
--- OUTSIDE RECORDS SUMMARY | 2025-06-17 14:37 | XMS_ITS | Encounter Summary ---
Author Organization [facility] Address [address] [place] [address] Phone Care Team Providers Care Civil Rights Investigator Name Role Phone Segundo Albright MD Primary Care Provider Yissel [place] Primary Care Provider [phone] Sasha Mejia Primary Care Provider Encounter Details Date Type Department Care Team (Latest Contact Info) Description 10/07/[address] [facility] 29 [place] [address] Yissel [place] PA [address] [place] [address] [email or web address] Type 2 diabetes mellitus without complication, unspecified whether chcf insulin use (Primary Dx) Social History Tobacco [...] [facility] [address] [place] [address] [phone] Archana Chaudhary MD [address] [place] [address] Orthopedics & Sports Medicine, [facility] [place] [address] [email or web address] 06/30/2025 9:00 AM EST Office Visit [facility] Gastroenterology Clinic 10 [place] [address] Unknown, Unknown, Merrill Ramos MD [address] [address] [email or web address] documented as of this encounter Visit Diagnoses Diagnosis Type 2 diabetes mellitus without complication, unspecified whether equipment operator intermodal yard insulin use- Primary documented in this encounter Care Teams Civil Rights Investigator Relationship Specialty Start Date End Date Segundo Albright MD 70 [place] [address] [email or web address] PCP - General 06/11/17 10/25/22 Yissel [place] PA [address] [place] [address] [email or web address] PCP - General Physician Insole Stiffener 10/26/22 03/19/25 Sasha Mejia PA [address] [place] [address] PCP - General Physician Insole Stiffener 03/20/25 documented as of this encounter Additional Source Comments The information contained in this document represents components of the legal health record. It is not the complete legal health record.[facility]
--- OUTSIDE RECORDS SUMMARY | 2025-06-17 14:37 | XMS_ITS | Encounter Summary ---
Author Organization [facility] Address [address] [place] [address] Phone Care Team Providers Care Manager Hi Name Role Phone Segundo Albright MD Primary Care Provider Yissel Wells Primary Care Provider [phone] Sasha Mejia Primary Care Provider Encounter Details Date Type Department Care Team (Latest Contact Info) Description 06/13/2017 Transcribe Orders [facility] [place] [address] [place] [address] Segundo Albright MD [address] [place] [phone] [email or web address] Testicular hypofunction (Primary Dx); Mixed hyperlipidemia; [...] Description 06/18/2025 10:00 AM EST Office Visit [facility] Orthopedics & Sports Medicine [address] [place] [address] [phone] Archana Chaudhary MD [address] [place] [address] Orthopedics & Sports Medicine, [facility] [place] [address] [email or web address] 06/30/2025 9:00 AM EST Office Visit [facility] Gastroenterology Clinic 10 [place] [address] Unknown, Unknown, MD Roland, Merrill Hernández MD [address] [address] documented as of this encounter Procedures Procedure [...] Diabetes mellitus without complication BASIC METABOLIC PANEL (BMP) Routine 06/14/2017 9:33 AM EST Testicular hypofunction Mixed hyperlipidemia Diabetes mellitus without complication documented in this encounter Results * (ABNORMAL) Microalbumin/creatinine ratio, random urine (06/14/2017 9:33 AM EST) URINE MICROALBUMIN 3.9(H) 0 - 2.3 mg/dL [facility] URINE CREATININE 417 mg/dL [facility] MICROALB/CRE RATIO 9.4 0 - 20 mg/g Cre [facility] Urine (Urine) 06/14/2017 9:3 3 AM EST 06/14/2017 9:58 AM EST us Segundo Albright MD LAB URINE ORDERABLES Final Resu lt Performing Organization Address City/[facility]/ZIP Co de Phone Number [address] [address] * (ABNORMAL) Lipid panel (06/14/2017 9:33 AM EST) HDL 52 mg/dL [facility] Comment: Interpretation: Risk Level Males Decreased >45 mg/dL Average 40-45 mg/dL Increased <40 mg/dL CHOLESTEROL 167 0 - 240 mg/dL [facility] TRIGLYCERIDES 134 30 - 160 mg/dL [facility] LDL 88 50 - 129 mg/dL [facility] Comment: LDL levels in terms of risk for coronary heart disease: <100 mg/dL: Optimal 100-129 mg/dL: Near or above optimal 130-159 mg/dL: Borderline high 160-189 mg/dL: High >190 mg/dL: Very High CARDIAC RISK RATIO 3.2(L) 3.4 - 5.0 C [facility] Blood 06/14/2017 9:33 AM EST 06/14/2017 9:48 AM EST us Seugndo Albright MD LAB BLOOD BKR ORDERABLES Final Result Performing Organization Address [facility] Co de Phone Number [address] [address] * (ABNORMAL) Basic metabolic panel (06/14/2017 9:33 AM EST) SODIUM 143 133 - 146 mmol/L [facility] CHLORIDE 104 96 - 108 mmol/L [facility] POTASSIUM 4.8 3.3 - 5.1 mmol/L [facility] CO2 28 21 - 35 mmol/L [facility] BUN 13 6 - 19 mg/dL [facility] CREATININE 0.90 0.5 - 1.5 mg/dL [facility] GLUCOSE 132(H) 70 - 99 mg/dL [facility] CALCIUM 9.8 8.4 - 10.3 mg/dL [facility] EGFR >60 60 - 1000 mL/min/1. 73m2 [facility] Comment:Abnormal if <60. If patient is -Norwegian, multiply the result by 1.21. ANION GAP NOT CALCULATED 10 - 20 mmol/L [facility] Blood 06/14/2017 9:33 AM EST 06/14/2017 9:48 AM EST us Segundo Albright MD LAB BLOOD BKR ORDERABLES Final Result [address] [address] * CBC (06/14/2017 9:33 AM EST) WBC 6.56 3.40 - 11.20 K/uL [facility] RBC 5.09 4.50 - 5.50 M/uL [facility] HGB 15.3 13.0 - 17.0 g/dL [facility] HCT 43.9 40.0 - 51.0 % [facility] PLT 216 130 - 400 K/uL [facility] MCV 86.2 79.0 - 98.0 fL [facility] MCH 30.1 27.0 - 34.8 pg [facility] MCHC 34.9 31.5 - 36.0 g/dL [facility] RDW 13.0 10.8 - 14.6 % [facility] MPV 9.8 9.4 - 12.4 fl [facility] NRBC 0.00 /100 WBCs [facility] ABSOLUTE NRBC 0.00 K/uL [facility] Blood 06/14/2017 9:33 AM EST 06/14/2017 9:48 AM EST us Segundo Albright MD LAB BLOOD BKR ORDERABLES Final Result [address] [address] * (ABNORMAL) Hemoglobin A1c (06/14/2017 9:33 AM EST) HEMOGLOBIN A1C 6.6(H) 4.3 - 5.8 % [facility] Blood 06/14/2017 9:33 AM EST 06/14/2017 9:48 AM EST us Segundo Albright MD LAB BLOOD BKR ORDERABLES Final Result [address] [address] * LFTs (hepatic panel) (06/14/2017 9:33 AM EST) ALKALINE PHOSPHATASE 63 39 - 117 U/L [facility] TOTAL BILIRUBIN 0.9 0 - 1.2 mg/dL [facility] DIRECT BILIRUBIN <0.2 0 - 0.3 mg/dL [facility] Bilirubin (Indirect) NOT CALCULATED 0 - 1.5 mg/dL [facility] AST 23 0 - 37 U/L [facility] ALT 28 0 - 40 U/L [facility] TOTAL PROTEIN 7.4 6.5 - 8.0 g/dL [facility] ALBUMIN 4.7 3.9 - 4.8 g/dL [facility] GLOBULIN 2.7 1 - 4.8 g/dL [facility] A/G Ratio 1.74 1.00 - 4.80 RATIO [facility] Blood 06/14/2017 9:33 AM EST 06/14/2017 9:48 AM EST us Segundo Albright MD LAB BLOOD BKR ORDERABLES Edited Result - Final Performing Organization Address City/[facility]/ZIP Co de Phone Number [address] [address] * PSA (screening) (06/14/2017 9:33 AM EST) PSA 0.39 0 - 4.00 ng/mL [facility] Blood 06/14/2017 9:33 AM EST 06/14/2017 1:13 PM EST us Segundo Albright MD LAB BLOOD BKR ORDERABLES Final Result [address] [place] [address] documented in this encounter Visit Diagnoses Diagnosis Testicular hypofunction- Primary Other testicular hypofunction Mixed hyperlipidemia Diabetes mellitus without complication Type II or unspecified type diabetes mellitus without mention of complication, not stated as uncontrolled documented in this encounter Care Teams Manager Hi Relationship Specialty Start Date End Date Segundo Albright MD [address] [place] [address] [email or web address] - General 06/11/17 10/25/22 Yissel Wells PA [address] [place] [address] [email or web address] PCP - General Physician Valve Repairer 10/26/22 03/19/25 Sasha Mejia PA [address] [place] [address] PCP - General Physician Valve Repairer 03/20/25 documented as of this encounter Additional Source Comments The information contained in this document represents components of the legal health record. It is not the complete legal health record.[facility]
--- OUTSIDE RECORDS SUMMARY | 2025-06-17 14:37 | XMS_ITS | Encounter Summary ---
Author Organization [facility] Address [address] [place] [address] Phone Care Team Providers Care Fluoroscope Operator Name Role Phone Yissel Wells Primary Care Provider Sasha Mejia Primary Care Provider [phone] Encounter Details Date Type Department Care Team (Latest Contact Info) Description 07/27/2024 Transcribe Orders Virtual Department 30 [place] [address] Britton Perez PA [address] [place] [address] Dysphagia, unspecified type (Primary Dx) Social History Tobacco Use Types Packs/Day Years Used Date Smoking Tobacco: Never Smokeless Tobacco: Never Alcohol Use Standard Drinks/Week Comments Yes 0 (1 standard drink = 0.6 oz pur e alcohol) 1 months Education Answer Date Recorded Are you interested in more education? Not on sdynie e 11/30/2022 Are you concerned about learning? [...] Description 06/18/2025 10:00 AM EST Office Visit [facility] Orthopedics & Sports Medicine 4 [place] [address] Archana Chaudhary MD [address] [place] [address] [facility] [place] [address] [email or web address] 06/30/2025 9:00 AM EST Office Visit [facility] Gastroenterology Clinic 10 [place] [address] Unknown, Unknown, Merrill Ramos MD [address] [address] documented as of this encounter Results * [...] IMAGES: [id number] The examination was performed by RRA, Benjamin Nieto. Dr. Jyoti Leary was immediately available for [...] type documented in this encounter Care Teams Fluoroscope Operator Relationship Specialty Start Date End Date Yissel Wells PA [address] [place] [address] [email or web address] PCP - General Physician Contact Center Engineer 10/26/22 03/19/25 Sasha Mejia PA [address] [place] [id number] PCP - General Physician Contact Center Engineer 03/20/25 documented as of this encounter Additional Source Comments The information contained in this document represents components of the legal health record. It is not the complete legal health record.[facility]
--- OUTSIDE RECORDS SUMMARY | 2025-06-17 14:37 | XMS_ITS | Encounter Summary ---
Author Organization [facility] Address [address] [place] [address] Phone Care Team Providers Care Child Protection Specialist Name Role Phone Segundo Albright MD Primary Care Provider Yissel Wells Primary Care Provider [phone] Sasha Mejia Primary Care Provider Encounter Details Date Type Department Care Team (Latest Contact Info) Description 07/10/2019 Transcribe Orders [facility] [address] [place] [address] Yissel Wells PA [address] [place] [address] [email or web address] Type 2 diabetes mellitus without complication, unspecified whether fci insulin use (Primary Dx) Social History Tobacco [...] [facility] [address] [place] [address] [phone] Archana Chaudhary MD [address] [place] [address] Orthopedics & Sports Medicine, [facility] [place] [address] [email or web address] 06/30/2025 9:00 AM EST Office Visit [facility] Gastroenterology Clinic 10 [place] [address] Unknown, Unknown, Merrill Ramos MD [address] [address] [email or web address] documented as of this encounter Visit Diagnoses Diagnosis Type 2 diabetes mellitus without complication, unspecified whether computer terminal operator insulin use- Primary documented in this encounter Care Teams Child Protection Specialist Relationship Specialty Start Date End Date Segundo Albright MD 70 [place] [address] [email or web address] - General 06/11/17 10/25/22 Yissel Wells PA [address] [place] [address] [email or web address] PCP - General Physician Homeworker 10/26/22 03/19/25 Sasha Mejia PA [address] [place] [address] PCP - General Physician Homeworker 03/20/25 documented as of this encounter Additional Source Comments The information contained in this document represents components of the legal health record. It is not the complete legal health record.[facility]
--- OUTSIDE RECORDS SUMMARY | 2025-06-17 14:37 | XMS_ITS | Encounter Summary ---
Author Organization [facility] Address [address] [place] [address] Phone Care Team Providers Care Deployment Technician Name Role Phone Segundo Albright MD Primary Care Provider Yissel Wells Primary Care Provider [phone] Sasha Mejia Primary Care Provider [phone] Encounter Details Date Type Department Care Team (Latest Contact Info) Description 06/16/2020 Transcribe Orders [facility] [address] [place] [address] Yissel Wells PA [address] [place] [address] [email or web address] Type 2 diabetes mellitus without complication, unspecified whether brancher insulin use (Primary Dx) Social History Tobacco [...] [facility] [address] [place] [address] [phone] Archana Chaudhary MD [address] [place] [address] Orthopedics & Sports Medicine, [facility] [place] [address] [email or web address] 06/30/2025 9:00 AM EST Office Visit [facility] Gastroenterology Clinic 10 [place] [address] Unknown, Rebekah, Merrill Ramos MD [address] [address] documented as of this encounter Results * Lipid panel (02/14/2021 9:34 AM EDT) HDL 48 mg/dL [facility] Comment: Interpretation <40 mg/dL: Low HDL cholesterol (major risk factor for CHD) Greater than or equal to 60 mg/dL: High HDL cholesterol ( negative risk factor for CHD) HDL - cholesterol is affected by a number of factors, e.g. smoking, excerise, hormones, sex and age. CHOLESTEROL 167 0 - 240 mg/dL [facility] TRIGLYCERIDES 160 30 - 160 mg/dL [facility] LDL 87 50 - 129 mg/dL [facility] Comment: LDL levels in terms of risk for coronary heart disease: <100 mg/dL: Optimal 100-129 mg/dL: Near or above optimal 130-159 mg/dL: Borderline high 160-189 mg/dL: High >190 mg/dL: Very High CARDIAC RISK RATIO 3.5 3.4 - 5.0 C [facility] Blood 02/14/2021 9:34 AM EDT 02/14/2021 9:37 AM EDT us Yissel CRAIG LAB BLOOD BKR ORDERABLES Fin al Result [facility] [address] [place], [place] [phone] * (ABNORMAL) Comprehensive metabolic panel (02/14/2021 9:34 AM EDT) SODIUM 138 133 - 146 mmol/L [facility] POTASSIUM 4.2 3.3 - 5.1 mmol/L [facility] CHLORIDE 104 96 - 108 mmol/L [facility] CO2 23 21 - 35 mmol/L [facility] BUN 13 6 - 19 mg/dL [facility] CREATININE 0.80 0.5 - 1.5 mg/dL [facility] GLUCOSE 146(H) 70 - 99 mg/dL [facility] ALBUMIN 4.6 3.9 - 4.8 g/dL [facility] TOTAL PROTEIN 6.8 6.5 - 8.0 g/dL [facility] CALCIUM 9.5 8.4 - 10.3 mg/dL [facility] ALKALINE PHOSPHATASE 62 39 - 117 U/L [facility] TOTAL BILIRUBIN 0.5 0.0 - 1.2 mg/dL [facility] AST 20 0 - 37 U/L [facility] ALT 19 0 - 40 U/L [facility] GLOBULIN 2.2 1 - 4.8 g/dL [facility] EGFR 95 >59 mL/min/1.7 3m2 [facility] Comment:Estimated glomerular filtration rate calculated using the CKD-EPI equation. ANION GAP 15 10 - 20 mmol/L [facility] Blood 02/14/2021 9:34 AM EDT 02/14/2021 9:37 AM EDT Yissel CRAIG LAB BLOOD BKR ORDERABLES Fin al Result [facility] [address] [place] [address] * (ABNORMAL) Microalbumin/creatinine ratio, random urine (10/06/2020 11:53 AM EST) URINE MICROALBUMIN 3.6(H) 0 - 2.3 mg/dL [facility] URINE CREATININE 307 mg/dL [facility] MICROALB/CRE RATIO 11.7 0 - 20 mg/g Cre [facility] Urine (Urine) 10/06/2020 11: 53 AM EST 10/06/2020 11:55 AM EST Yissel CRAIG LAB URINE ORDERABLES Final R esult [address] [address] * Lipid panel (10/06/2020 10:26 AM EST) HDL 42 mg/dL [facility] Comment: Interpretation <40 mg/dL: Low HDL cholesterol (major risk factor for CHD) Greater than or equal to 60 mg/dL: High HDL cholesterol ( negative risk factor for CHD) HDL - cholesterol is affected by a number of factors, e.g. smoking, excerise, hormones, sex and age. CHOLESTEROL 167 0 - 240 mg/dL [facility] TRIGLYCERIDES 122 30 - 160 mg/dL [facility] LDL 101 50 - 129 mg/dL [facility] Comment: LDL levels in terms of risk for coronary heart disease: <100 mg/dL: Optimal 100-129 mg/dL: Near or above optimal 130-159 mg/dL: Borderline high 160-189 mg/dL: High >190 mg/dL: Very High CARDIAC RISK RATIO 4.0 3.4 - 5.0 C [facility] Blood 10/06/2020 10:2 6 AM EST 10/06/2020 10:32 AM EST Yissel CRAIG LAB BLOOD BKR ORDERABLES Fin al Result Performing Organization Address [facility] Co de Phone Number [address] [address] * (ABNORMAL) Comprehensive metabolic panel (10/06/2020 10:26 AM EST) SODIUM 139 133 - 146 mmol/L [facility] POTASSIUM 4.3 3.3 - 5.1 mmol/L [facility] CHLORIDE 104 96 - 108 mmol/L [facility] CO2 25 21 - 35 mmol/L [facility] BUN 17 6 - 19 mg/dL [facility] CREATININE 0.90 0.5 - 1.5 mg/dL [facility] GLUCOSE 148(H) 70 - 99 mg/dL [facility] ALBUMIN 4.3 3.9 - 4.8 g/dL [facility] TOTAL PROTEIN 6.5 6.5 - 8.0 g/dL [facility] CALCIUM 9.2 8.4 - 10.3 mg/dL [facility] ALKALINE PHOSPHATASE 63 39 - 117 U/L [facility] TOTAL BILIRUBIN 0.3 0.0 - 1.2 mg/dL [facility] AST 21 0 - 37 U/L [facility] ALT 18 0 - 40 U/L [facility] GLOBULIN 2.2 1 - 4.8 g/dL [facility] EGFR 91 >59 mL/min/1.7 3m2 [facility] Comment:Estimated glomerular filtration rate calculated using the CKD-EPI equation. ANION GAP 14 10 - 20 mmol/L [facility] Blood 10/06/2020 10:2 6 AM EST 10/06/2020 10:32 AM EST us iYssel CRAIG LAB BLOOD BKR ORDERABLES Fin al Result Performing Organization Address City/State/[facility] Co de Phone Number [facility] [address] [place] [address] documented in this encounter Visit Diagnoses Diagnosis Type 2 diabetes mellitus without complication, unspecified whether brancher insulin use- Primary documented in this encounter Care Teams Deployment Technician Relationship Specialty Start Date End Date Segundo Albright MD [address] [place] [address] [email or web address] - General 06/11/17 10/25/22 Yissel Wells PA [address] [place] [address] [email or web address] - General Physician Reading Interventionist 10/26/22 03/19/25 Sasha Mejia PA [address] [place] [id number] PCP - General Physician Reading Interventionist 03/20/25 documented as of this encounter Additional Source Comments The information contained in this document represents components of the legal health record. It is not the complete legal health record.[facility]
--- OUTSIDE RECORDS SUMMARY | 2025-06-17 14:37 | XMS_ITS | Encounter Summary ---
Author Organization [facility] Address [address] [place] [address] Phone Care Team Providers Care Ham Clerk Name Role Phone Segundo Albright MD Primary Care Provider Yissel Wells Primary Care Provider Sasha Mejia Primary Care Provider Encounter Details Date Type Department Care Team (Latest Contact Info) Description 04/20/2019 Transcribe Orders [facility] [address] [place] [address] Segundo Albright MD [address] [place] [address] [phone] [email or web address] Type 2 diabetes mellitus without [...] [facility] [address] [place] [address] Archana Chaudhary MD [address] [place] [address] Orthopedics & Sports Medicine, [facility] [place] [address] [email or web address] 06/30/2025 9:00 AM EST Office Visit [facility] 10 [place] [address] Unknown, Unknown, Merrill Ramos MD [address] [address] [email or web address] documented as of this encounter Results * (ABNORMAL) Hemoglobin A1c (06/13/2019 11:45 AM EST) HEMOGLOBIN A1C 7.1(H) 4.3 - 5.8 % [facility] Blood 06/13/2019 11:4 5 AM EST 06/13/2019 11:48 AM EST us Segundo Albright MD LAB BLOOD BKR ORDERABLES Final Result Performing Organization Address City/[facility]/ZIP Co de Phone Number [address] [address] * Alanine aminotransferase (ALT) (06/13/2019 11:45 AM EST) ALT 23 0 - 40 U/L [facility] Blood 06/13/2019 11:4 5 AM EST 06/13/2019 11:48 AM EST us Segundo Albright MD LAB BLOOD BKR ORDERABLES Final Result Performing Organization Address [facility]/ZIP Co de Phone Number [address] [address] documented in this encounter Visit Diagnoses Diagnosis Type 2 diabetes mellitus without complication, unspecified whether long distance operator insulin use- Primary documented in this encounter Care Teams Ham Clerk Relationship Specialty Start Date End Date Segundo Albright MD [address] [place] [address] [email or web address] - General 06/11/17 10/25/22 Yissel Wells PA [address] [place] [address] [email or web address] - General Physician Meal Grinder Tender 10/26/22 03/19/25 Sasha Mejia PA [address] [place] [address] PCP - General Physician Meal Grinder Tender 03/20/25 documented as of this encounter Additional Source Comments The information contained in this document represents components of the legal health record. It is not the complete legal health record.[facility]
--- OUTSIDE RECORDS SUMMARY | 2025-06-17 14:37 | XMS_ITS | Encounter Summary ---
Author Organization [facility] Address [address] [place] [address] Phone Care Team Providers Care Air Antisubmarine Officer Name Role Phone Sasha Mejia Primary Care Provider [phone] Reason for Visit * Reason Onset Date Comments Colonoscopy 06/16/2025 Encounter Details Date Type Department Care Team ([facility] Contact Info) Description 06/16/2025 Telephone [facility] [address] [place] [address] Robin Alamo [address] [place] [address] [email or web address] Colonoscopy Social History Tobacco Use Types Packs/Day Years [...] as of this encounter Progress Notes * Robin Alamo - 06/16/2025 3:33 PM EST Patient has an colonoscopy on 06/30/2025. Sandor [facility] called and stated that the patient thoughthe was also having a Upper endoscopy at the same time, she said that he is experiencing dysphagia. Please advise documented in this encounter Plan of Treatment Upcoming Encounters Date Type Department Care Team (Late st Contact Info) Description 06/18/2025 10:00 AM EST Office Visit [facility] Orthopedics & Sports Medicine [address] [place] [address] Archana Chaudhary MD [address] [place] [address] [facility] [place] [address] [email or web address] 06/30/2025 9:00 AM EST Office Visit [facility] [address] [place] [address] Unknown, Unknown, Merrill Ramos MD [address] [address] documented as of this encounter Visit Diagnoses Not on filedocumented in this encounter Care Teams Air Antisubmarine Officer Relationship Specialty Start Date End Date Sasha Mejia PA [address] [place] [address] PCP - General Physician Manufacturing Director 03/20/25 documented as of this encounter Additional Source Comments The information contained in this document represents components of the legal health record. It is not the complete legal health record.[facility]
--- OUTSIDE RECORDS SUMMARY | 2025-06-17 14:37 | XMS_ITS | Encounter Summary ---
Author Organization [facility] Address [address] [place] [address] Phone Care Team Providers Care Irrigation Worker Name Role Phone Segundo Albright MD Primary Care Provider Yissel Wells Primary Care Provider Sasha Mejia Primary Care Provider [phone] Reason for Referral * MRI/CAT Scan - Closed Specialty Diagnoses / Procedures Referred By Contac t Referred To Contact Radiology Diagnoses Chronic low back pain, unspecified back pain laterality, with sciatica presence unspecified Procedures MRI Lumbar Spine CHG MRI, LUMBAR SPINE CONTRAST Karl Fowler DO Phone: tel: fax: [email or web address] Referral ID Status Reason Start Date Expiration Date Visits Re quested Visits Authorized [id number] Closed 06/06/2017 08/09/2017 1 1 Encounter Details Date Type Department Care Team (Late st Contact Info) Description 06/11/2017 Ancillary Orders Virtual Department [address] [place] [address] Karl Fowler DO [address] [place] [address] [email or web address] Chronic low back pain, unspecified back pain [...] Description 06/18/2025 10:00 AM EST Office Visit [facility] Orthopedics & Sports Medicine [address] [place] [address] Archana Chaudhary MD [address] [place] [address] Orthopedics & Sports Medicine, [facility] [place] [address] [email or web address] 06/30/2025 9:00 AM EST Office Visit [facility] [address] [place] [address] Unknown, Unknown, Merrill Ramos MD [address] [place] [address] documented as of this encounter Results * [...] musculature probably due to strain. POS - [id number] Narrative 06/16/2017 6:55 PM EST HISTORY: Lower back pain and numbness left thigh. Abnormality in the left neuroforamen at L2-L3. COMPARISON: Read in conjunction with non-enhanced MRI lumbar spine sequences of 05/29/2017. TECHNIQUE: Exam performed on a 1.5 Janine high-field MRI scanner. Axial and sagittal pre- and gxfp-kcuneaakqv-rbfdoyyn sequences obtained to further evaluate left neuroforamen [...] high-field MRI scanner. Axialand sagittal pre- and wnsg-rjyvcfphtr-obtjitog sequences obtained tofurther evaluate left neuroforamen at [...] paraspinous musculatureprobably due to strain. POS - [id number] Karl Fowler DO IMG MR XSPECIALTY Final Resu lt documented in this encounter Visit Diagnoses Diagnosis Chronic low back pain, unspecified back pain laterality, with sciatica presence unspecified Chronic low back pain, unspecified back pain laterality, with sciatica presence unspecified documented in this encounter Care Teams Irrigation Worker Relationship Specialty Start Date End Date Segundo Albright MD [address] [place] [address] [email or web address] PCP - General 06/11/17 10/25/22 Yissel Wells PA [address] [place] [address] [email or web address] PCP - General Physician V Belt Builder 10/26/22 03/19/25 Sasha Mejia PA [address] [place] [address] PCP - General Physician V Belt Builder 03/20/25 documented as of this encounter Additional Source Comments The information contained in this document represents components of the legal health record. It is not the complete legal health record.[facility]
--- OUTSIDE RECORDS SUMMARY | 2025-06-17 14:38 | XMS_ITS | Clinical Summary ---
Author Organization [facility] Address [address] [place] [address] Phone Care Team Providers Care Gallery Intern Name Role Phone Sasha Mejia Primary Care Provider [phone] Allergies Active Allergy Reactions Criticality Noted Date Comments Codeine Unknown Medium 06/15/2017 Pollen Extracts 12/09/2022 Medications atorvastatin (LIPITOR) 40 MG tablet Take 20 mg by mouth daily. 01/30/20 22 Active azelaic acid (FINACEA) 15 % gel APPLY SMALL AMOUNT TO FACE ONCE A DAY 03/18/20 22 Active TRULICITY 0.75 mg/0.5 mL subcutaneous injection INJECT 0.75 MG SUBCUTANEOULSY ONCE WEEKLY DX:E11.9 03/26/20 22 Active metFORMIN (GLUCOPHAGE-XR) 500 MG 24 hr tablet Take 1,000 mg by mouth daily. 01/26/20 22 Active tadalafiL (CIALIS) 5 MG tablet Take 5 mg by mouth daily. 03/09/20 22 Active tamsulosin (FLOMAX) 0.4 mg Cap every other day. 03/06/20 22 Active testosterone (ANDROGEL) 20.25 mg/1.25 gram (1.62 %) transdermal gel pump 4 application. 03/19/20 22 Active verapamiL (CALAN-SR) 240 MG CR tablet 480 mg. 01/10/20 22 Active SUMAtriptan (IMITREX) 100 MG tablet TAKE 1 TABLET BY MOUTH NEEDED, DO NOT TAKE MORE THAN 2 TABLETS PER 24 HOURS 08/18/19 23 Active ciprofloxacin-de xAMETHasone (CIPRODEX) otic suspension INSTILL 4 DROP INTO LEFT EAR TWICE A DAY DIRECTED X 14 DAYS 11/17/19 Active traMADoL (ULTRAM) 50 mg tablet Take 50 mg by mouth every 6 (six) hours as needed for pain (specific location in comments). Active cyclobenzaprine (FLEXERIL) 10 MG tablet Take 10 mg by mouth 3 (three) times a day as needed for muscle spasms. Active Active Problems Problem Noted Date Diagnosed Date Blood glucose abnormal 10/29/2022 Neuroma 10/29/2022 Synovial cyst 10/29/2022 Tailor's bunion 10/29/2022 Encounters Date Type Department Care Team Description 06/16/[address] [facility] Gastroenterology Clinic [address] [place] [address] Robin Alamo Colonoscopy 05/10/2025 1:14 PM EDT - 05/10/2025 11:59 PM EDT Hospital Encounter [facility] [address] [place] [address] Blue Quiroz PA-C Discharge Disposition: Home or Self Care 04/23/2025 11:15 AM EDT Office Visit [facility] Orthopedics & Sports Medicine [address] [place] [address] Archana Chaudhary MD Sprain of medial collateral ligament of left knee, initial encounter (Primary Dx); Pain; Lumbar radiculopathy; Primary localized osteoarthritis of left knee 04/23/2025 11:14 AM EDT - 04/23/2025 11:59 PM EDT Hospital Encounter [address] [address] Archana Chaudhary MD Discharge Disposition: Home or Self Care 04/16/2025 10:40 AM EDT Telemedicine - audio only [facility] Spine Medicine [address] [place] [address] Nick Quinn MD Lumbar radiculitis (Primary Dx) 04/07/2025 Orders Only [facility] Orthopedics & Sports Medicine [address] [place] [address] Kami Schrader MD 04/06/2025 Telephone [facility] Orthopedics & Sports Medicine [address] [place] [address] Archana Chaudhary MD waiting for records 04/01/2025 Telephone [facility] Geriatrics [address] [place] [address] [place] [address] Steve Danilosd 03/26/2025 Transcribe Orders [facility] Orthopedics & Sports Medicine [address] [place] [address] Jose Jama PA 03/26/2025 Orders Only [facility] Spine Medicine [address] [place] [address] [place] [address] Nick Quinn MD Lumbar radiculitis (Primary Dx) 03/25/2025 2:00 PM EDT Procedure visit [facility] Spine Medicine [address] [address] Nick Quinn MD Lumbar radiculitis (Primary Dx) 03/25/2025 1:49 PM EDT - 03/25/2025 11:59 PM EDT Hospital Encounter [address] [address] Nick Quinn MD Discharge Disposition: Home or Self Care 03/23/2025 1:00 PM EDT Office Visit [facility] Spine Medicine [address] [place] [address] [place] [address] Nick Quinn MD Lumbar radiculitis (Primary Dx) 03/22/2025 Transcribe Orders [facility] Neurology [address] [place] [address] [place] [address] Rachel Short MA Other chronic pain (Primary Dx) 03/22/2025 Telephone [facility] Spine Medicine [address] [place] [address] [place] [address] Nick Quinn MD Appointment; Medication Management 03/20/2025 10:47 AM EDT - 03/20/2025 7:06 PM EDT Emergency [facility] Emergency [address] [place] [address] Isaak Pandey MD Discharge Disposition: Home or Self Care 03/20/2025 Procedure Pass [facility], [facility] [address] [place] [address] 03/19/2025 Telephone [facility] Spine Medicine [address] [place] [address] Yissel Wells PA Establish Care from Last 3 Months Immunizations Immunization Administration [...] Description 06/18/2025 10:00 AM EST Office Visit [facility] Orthopedics & Sports Medicine 4 [place] [address] Archana Chaudhary MD [address] [place] [address] Orthopedics & Sports Medicine, [facility] [place] [address] [email or web address] 06/30/2025 9:00 AM EST Office Visit [facility] Gastroenterology Clinic [address] [place] [address] Unknown, Unknown, Merrill Ramos MD [address] [place] [address] [email or web address] Health Maintenance Due Date Last Done Comments DEPRESSION SCREENING 1969 HEPATITIS C SCREENING 1975 COLOGUARD 2002 FIT TEST 2002 FOBT 2002 SIGMOIDOSCOPY 2002 VIRTUAL COLONOSCOPY 2002 PNEUMOCOCCAL VACCINES (50+ years) (3 of 3 - PCV20 or PCV21) 07/10/2024 07/10/2019, 10/21/2015 INFLUENZA VACCINE (#1) 2025 , 07/27/2024, 06/21/2022, Additional history exists COVID-19 VACCINE ( - 2024- season) 2025 12/20/2020, 12/04/2020, 11/13/2020 COLONOSCOPY 06/29/2025 06/29/2020 COLORECTAL CANCER SCREENING 06/29/2025 CREATININE LEVEL 07/07/2025 07/07/2024, , 09/07/2021, Additional history exists SCREENING FOR DIABETES 07/07/2027 07/07/2024, 2023 LIPID PANEL 09/27/2028 09/27/2023, 09/06, 03/26/2022, Additional history exists RSV VACCINE (1 - 1-dose 75+ series) 2032 Adult Td,Tdap Booster 07/27/2034 07/27/2024, 010 ZOSTER VACCINES Completed 03/28/2018, 11/30/2017 SMOKING STATUS SCREENING (Once After 26 Yrs) Completed 08/19/2024 HEPATITIS A VACCINES Aged Out No long er eligible based on patient's age to complete this topic HIB VACCINES Aged Out No longer eligi ble based on patient's age to complete this topic IPV VACCINES Aged Out No longer eligi ble based on patient's age to complete this topic MENINGOCOCCAL VACCINES (ACWY) Aged Out No longer eligible based on patient's age to complete this topic MENINGOCOCCAL VACCINES (B) Aged Out N o longer eligible based on patient's age to complete this topic Medical Devices Not on file Procedures Procedure Name Priority Date/Time Associated Diagnosis Comments CBC Routine 05/10/2025 1:19 PM EDT Testicular hypofunction TESTOSTERONE, TOTAL AND FREE Routine 05/10/2025 1:19 PM EDT Testicular hypofunction XR KNEE 4 OR MORE VIEWS (LEFT) Routine 04/23/2025 11:25 AM EDT Pain OUTSIDE MR EXTREMITY LOWER REPORT ONLY Routine 04/07/2025 10:10 AM EDT MRI LUMBAR SPINE (NEURO) WITHOUT CONTRAST STAT 03/20/2025 1:24 PM EDT BASIC METABOLIC PANEL (BMP) Routine 07/07/2024 10:29 AM EST Essential (primary) hypertension Type 2 diabetes mellitus without complication, unspecified whether nursing home insulin use LIPID PANEL Routine 03/26/2022 12:14 PM EDT Mixed hyperlipidemia Testicular hypofunction Benign localized prostatic hyperplasia with lower urinary tract symptoms (LUTS) Type 2 diabetes mellitus without complication, unspecified whether nursing home insulin use HM COLONOSCOPY FOR RESULT ENTRY ONLY Routine 06/29/2020 from Last 3 Months or Most Recently Relevant to Health Maintenance Results * (ABNORMAL) Testosterone, total and free (05/10/2025 1:19 PM EDT) FREE TESTOSTERONE 22.2(H) 3.47 - 13.0 ng/dL [facility] LAB MED/PATH SUPERIOR DEE Comment: (NOTE) ADDITIONAL INFORMATION This test was developed and its performance characteristics determined by [facility] in a manner consistent with CLIA requirements. This test has not been cleared or approved by the U.S. Food and Drug Administration. TESTOSTERONE, TOTAL 518 240 - 950 ng/dL [facility]PATH [facility]PERIOR Comment: (NOTE) ADDITIONAL INFORMATION Testing performed by Liquid Chromatography-Tandem Mass Spectrometry (LC-MS/MS). This test was developed and its performance characteristics determined by [facility] in a manner consistent with CLIA requirements. This test has not been cleared or approved by the U.S. Food and Drug Administration. Blood 05/10/2025 1:19 PM EDT 05/10/2025 1:23 PM EDT Blue Quiroz PA-C LAB BLOOD BKR ORDERABLES F inal Result Performing Organization Address City/[facility]/ZIP Co de Phone Number [facility]PATH [address] [place] [address] * CBC (05/10/2025 1:19 PM EDT) WBC 7.56 4.00 - 11.00 K/uL [facility] RBC 4.70 4.50 - 5.90 M/uL [facility] HGB 14.1 13.5 - 17.5 g/dL [facility] HCT 42.1 41.0 - 53.0 % [facility] PLT 177 150 - 450 K/uL [facility] MCV 89.6 80.0 - 100.0 fL [facility] MCH 30.0 27.0 - 31.0 pg [facility] MCHC 33.5 32.0 - 36.0 g/dL [facility] RDW 12.7 11.5 - 14.5 % [facility] MPV 9.0 8.4 - 12.0 fL [facility] NRBC 0.00 0.00 /100 WBCs [facility] ABSOLUTE NRBC 0.00 0.00 K/uL [facility] Blood 05/10/2025 1:19 PM EDT 05/10/2025 1:23 PM EDT Blue Quiroz PA-C LAB BLOOD BKR ORDERABLES F inal Result Performing Organization Address City/[facility]/ZIP Co de Phone Number [facility] [address] [place] [address] * XR KNEE 4 OR MORE VIEWS (LEFT) (04/23/2025 11:25 AM EDT) Narrative SYSTEMGENERATED, DOCUMENTATION - 04/23/2025 11:25 AM EDT This image report has been auto-finalized and has not been read by a Radiologist. Interpretation has been included in the provider encounter note for this date of service. Archana ERNANDEZ XR LOWER EXTREMITY Fi nal Result * Outside MR Extremity Lower report Only (04/07/2025 10:10 AM EDT) Historical Provider MD ERNANDEZ MR EXTREMITY Final Re sult * MRI LUMBAR SPINE (NEURO) WITHOUT CONTRAST [...] stenosis with impingement of the traversing left [id number] roots. us Carol Ghotra PA-C IMG MR XSPECIALTY Final Resu lt * (ABNORMAL) Basic metabolic panel (07/07/2024 10:29 AM EST) SODIUM 140 133 - 146 mmol/L [facility] CHLORIDE 104 96 - 108 mmol/L [facility] POTASSIUM 4.3 3.3 - 5.1 mmol/L [facility] Comment:Specimen slightly he molyzed, result may be falsely elevated. CO2 22 21 - 35 mmol/L [facility] BUN 20(H) 6 - 19 mg/dL [facility] CREATININE 0.80 0.5 - 1.5 mg/dL [facility] GLUCOSE 120(H) 70 - 99 mg/dL [facility] CALCIUM 9.6 8.4 - 10.3 mg/dL [facility] EGFR 98 >59 mL/min/1.7 3m2 [facility] Comment:Estimated glomerular filtration rate calculated using the CKD-EPI refit equation. ANION GAP 18 10 - 20 mmol/L [facility] Blood 07/07/2024 10:2 9 AM EST 07/07/2024 10:36 AM EST us Yissel CRAIG LAB BLOOD BKR ORDERABLES Fin al Result [address] [address] * (ABNORMAL) Lipid panel (03/26/2022 12:14 PM EDT) HDL 46 mg/dL [facility] Comment: Interpretation <40 mg/dL: Low HDL cholesterol (major risk factor for CHD) Greater than or equal to 60 mg/dL: High HDL cholesterol ( negative risk factor for CHD) HDL - cholesterol is affected by a number of factors, e.g. smoking, excerise, hormones, sex and age. CHOLESTEROL 170 0 - 240 mg/dL [facility] TRIGLYCERIDES 182(H) 30 - 160 mg/dL [facility] LDL 88 50 - 129 mg/dL [facility] Comment: LDL levels in terms of risk for coronary heart disease: <100 mg/dL: Optimal 100-129 mg/dL: Near or above optimal 130-159 mg/dL: Borderline high 160-189 mg/dL: High >190 mg/dL: Very High CARDIAC RISK RATIO 3.7 3.4 - 5.0 C [facility] Blood 03/26/2022 12:1 4 PM EDT 03/26/2022 12:21 PM EDT us Yissel CRAIG LAB BLOOD BKR ORDERABLES Fin al Result [facility] [address] [place] [address] * COLONOSCOPY FOR RESULT ENTRY ONLY (06/29/2020) [facility] Colonoscopy Repeat in 5 years Comment:External Historical Provider MD HEALTH MAINTENANCE Final Result from Last 3 Months or Most Recently Relevant to Health Maintenance Insurance [facility] MEDICARE SUPPLEMENT [place] [id number] [place] [address] MEDICARE SUPPLEMENT MEDICARE PART A & B MEDICARE PART A & B MEDICARE PART A & B MEDICARE PART A & [place] [address] MEDICARE SUPPLEMENT MEDICARE PART A & B [facility] Care Teams Gallery Intern Relationship Specialty Start Date End Date Sasha Mejia PA [address] [place] [address] PCP - General Physician Key Worker 03/20/25 Additional Source Comments The information contained in this document represents components of the legal health record. It is not the complete legal health record.[facility]
--- OUTSIDE RECORDS SUMMARY | 2025-06-17 14:38 | XMS_ITS | Encounter Summary ---
Author Organization [facility] Address [address] [place] [address] Phone Care Team Providers Care Electrophonic Engineer Name Role Phone Sasha Mejia Primary Care Provider [phone] Reason for Visit * Reason Onset Date Comments Appointment 03/22/2025 Medication Management 03/22/2025 Encounter Details Date Type Department Care Team ([facility] st Contact Info) Description 03/22/2025 Telephone [facility] Spine Medicine [address] [place] [address] Nick Quinn MD [address] [facility], [address] [place] [address] [email or web address] Appointment; Medication Management Social History Tobacco Use [...] to able to walk currently Central Support Sign Wire[employer] (Please do not reply to this user; this inbox is not monitored.) Thank you. documented in this encounter Plan of Treatment Upcoming Encounters Date Type Department Care Team (Late st Contact Info) Description 06/18/2025 10:00 AM EST Office Visit [facility] Orthopedics & Sports Medicine [address] [place] [address] Archana Chaudhary MD [address] [place] [address] Orthopedics & Sports Medicine, [place] [address] [email or web address] 06/30/2025 9:00 AM EST Office Visit [facility] Gastroenterology Clinic [address] [place] [address] Unknown, Unknown, Merrill Ramos MD [address] [address] documented as of this encounter Visit Diagnoses Not on filedocumented in this encounter Care Teams Electrophonic Engineer Relationship Specialty Start Date End Date Sasha Mejia PA [address] [place] [address] PCP - General Physician Crushed Stone Grader 03/20/25 documented as of this encounter Additional Source Comments The information contained in this document represents components of the legal health record. It is not the complete legal health record.[facility]
--- OUTSIDE RECORDS SUMMARY | 2025-06-17 14:38 | XMS_ITS | Clinical Summary ---
Author Organization [facility] Address [address] [place] [address] Care Team Providers Care Vacuum Spindle Sander Name Role Phone Unavailable Primary Care Provider Unavailabl e Social History Tobacco Use Types Packs/Day Years Used Date Smoking Tobacco: Never Assessed Sex and Gender Information Value Date Recorded Sex Assigned at Not on file Legal Sex Male 11:15 AM EST Gender Identity Not on file Sexual Orientation Not on file Plan of Treatment Health Maintenance Due Date Last Done Comments Colorectal Cancer Screening: Colonoscopy 1957 DTaP,Tdap,and Td Vaccines (1 - Tdap) 1976 Pneumococcal Vaccine: 50+ Ye ars (1 of 1 - PCV) 2007 Zoster Vaccines (1 of 2) 2007 Depression Screening 08/05/2024 Abdominal Aortic Aneurysm (A AA) Screen 01/06/2025 Cholesterol Screening (Lipid Panel) 01/06/2025 Falls Risk Assessment 01/06/2025 Hepatitis C Screening 01/06/2025 Social Influencers of Health Screening 01/06/2025 COVID-19 Vaccine (1 - 2024-2 6 season) 2025 Influenza Vaccine (#1) 2025 RSV Immunization Adult [...]
--- OUTSIDE RECORDS SUMMARY | 2025-06-17 14:38 | XMS_ITS | Encounter Summary ---
Author Organization [facility] Address [address] [place] [address] [place] [address] Phone Care Team Providers Care Ambulatory Care Nurse Name Role Phone Sasha Mejia Primary Care Provider [phone] Encounter Details Date Type Department Care Team (Late st Contact Info) Description 03/20/2025 Procedure Pass [facility], [address] [address] Social History Tobacco Use Types Packs/Day Years [...] 03/20/2025 10:40 AM Ele Mason RN * [place] Suicide Severity Rating Scale (Screener/Recent Self-Report) Question Answer Date of Assessment Author 1. Wish to be (Past 1 Month) No 025 10:40 AM Ele Mason RN 2. Non-Specific Active Suici edgard Thoughts (Past 1 Month) No 03/20/2025 10:40 AM Ele Mason, KATHERINE 6. Suicidal Behavior (Lifetime) No 10:40 AM Ele Mason RN documented as of this encounter Plan of Treatment Upcoming Encounters Date Type Department Care Team (Late st Contact Info) Description 06/18/2025 10:00 AM EST Office Visit [facility] Orthopedics & Sports Medicine [address] [place] [address] Archana Chaudhary MD [address] [place] [address] Orthopedics & Sports [place] [address] [email or web address] 06/30/2025 9:00 AM EST Office Visit [facility] Gastroenterology Clinic [address] [place] [address] Unknown, Unknown, Merrill Ramos MD [address] [address] documented as of this encounter Visit Diagnoses Not on filedocumented in this encounter Care Teams Ambulatory Care Nurse Relationship Specialty Start Date End Date Sasha Mejia PA [address] [place] [address] PCP - General Physician Tape Stringer 03/20/25 documented as of this encounter Additional Source Comments The information contained in this document represents components of the legal health record. It is not the complete legal health record.[facility]
--- OUTSIDE RECORDS SUMMARY | 2025-06-17 14:38 | XMS_ITS | Encounter Summary ---
Author Organization [facility] Address [address] [place] [address] Phone Care Team Providers Care Window Shade Installer Name Role Phone Segundo Albright MD Primary Care Provider Segundo Albright MD Primary Care Provider Yissel Wells Primary Care Provider Sasha Mejia Primary Care Provider Encounter Details Date Type Department Care Team (Late st Contact Info) Description 01/29/2017 Procedure Pass [facility] [address] [place] [address] Social History Tobacco Use Types Packs/Day Years [...] [facility] Medicine [address] [place] [id number] Archana Chaudhary MD [address] [place] [address] Orthopedics & Sports Medicine, [facility] [place], [place] [id number] [email or web address] 06/30/2025 9:00 AM EST Office Visit [facility] Gastroenterology Clinic [address] [place] [address] Unknown, Unknown, Merrill Ramos MD [address] [address] [email or web address] documented as of this encounter Visit Diagnoses Not on filedocumented in this encounter Care Teams Window Shade Installer Relationship Specialty Start Date End Date Segundo Albright MD [address] [place] [address] [email or web address] PCP - General Family Medicine 01/02/17 06/10/17 Segundo Albright MD [address] [place] [address] [email or web address] PCP - General 06/11/17 10/25/22 Yissel Wells PA [address] [place] [address] [email or web address] PCP - General Physician Child Psychiatrist 10/26/22 03/19/25 Sasha Mejia PA [address] [place] [address] PCP - General Physician Child Psychiatrist 03/20/25 documented as of this encounter Additional Source Comments The information contained in this document represents components of the legal health record. It is not the complete legal health record.[facility]
--- OUTSIDE RECORDS SUMMARY | 2025-06-17 14:38 | XMS_ITS | Encounter Summary ---
Author Organization [facility] Address [address] [place] [address] Phone Care Team Providers Care Beach Lifeguard Name Role Phone Segundo Albright MD Primary Care Provider [phone] Yissel Wells Primary Care Provider Sasha Mejia Primary Care Provider Encounter Details Date Type Department Care Team (Late st Contact Info) Description 10/19/2022 Procedure Pass [facility], Ct Scan - [address] [address] Social History Tobacco Use Types Packs/Day Years [...] Description 06/18/2025 10:00 AM EST Office Visit [facility] [address] [place] [address] Archana Chaudhary MD [address] [place] [address] [facility] [place], [place] [id number] [email or web address] 06/30/2025 9:00 AM EST Office Visit [facility] [address] [place] [address] Unknown, Unknown, Merrill Ramos MD [address] [address] [email or web address] documented as of this encounter Visit Diagnoses Not on filedocumented in this encounter Care Teams Beach Lifeguard Relationship Specialty Start Date End Date Segundo Albright MD [address] [place] [address] [email or web address] PCP - General 06/11/17 10/25/22 Yissel Wells PA [address] [place] [address] [email or web address] PCP - General Physician Ski Production Supervisor 10/26/22 03/19/25 Sasha Mejia PA [address] [place] [address] PCP - General Physician Ski Production Supervisor 03/20/25 documented as of this encounter Additional Source Comments The information contained in this document represents components of the legal health record. It is not the complete legal health record.[facility]
--- OUTSIDE RECORDS SUMMARY | 2025-06-17 14:38 | XMS_ITS | Encounter Summary ---
Author Organization [facility] Address [address] [place] [address] Phone Care Team Providers Care Woodworker Helper Name Role Phone Segundo Albright MD Primary Care Provider Yissel Wells Primary Care Provider Sasha Mejia Primary Care Provider [phone] Encounter Details Date Type Department Care Team (Late st Contact Info) Description 04/11/2022 Procedure Pass , [address] [address] Social History Tobacco Use Types Packs/Day Years [...] AM EST Office Visit [facility] [address] [place] [address] Archana Chaudhary MD [address] [place] [address] [facility] [place], [place] [id number] [email or web address] 06/30/2025 9:00 AM EST Office Visit [facility] [address] [place] [address] Unknown, Unknown, Merrill Ramos MD [address] [address] [email or web address] documented as of this encounter Visit Diagnoses Not on filedocumented in this encounter Care Teams Woodworker Helper Relationship Specialty Start Date End Date Segundo Albright MD [address] [place] [address] [email or web address] PCP - General 06/11/17 10/25/22 Yissel Wells PA [address] [place] [address] [email or web address] PCP - General Physician Layer Out 10/26/22 03/19/25 Sasha Mejia PA [address] [place] [address] PCP - General Physician Layer Out 03/20/25 documented as of this encounter Additional Source Comments The information contained in this document represents components of the legal health record. It is not the complete legal health record.[facility]
--- OUTSIDE RECORDS SUMMARY | 2025-06-17 14:38 | XMS_ITS | Patient Health Record ---
Author Organization [facility] Address [address] [place] [address] Care Team Providers Care Guest Experience Representative Name Role Phone ZuleymaLazaro Unavailable [phone] Zuleyma MenendezLazaro Unavailable Unavailable Allergies Allergen (clinical [...] Status Risk Notes Problem Osteoarthritis of knee (832438330) Unilateral primary osteoarthritis, left knee (M17.12) Active confirmed Problem Pain of left knee region (finding) (004907422936127) Left knee pain, unspecified chronicity (M25.562) Active confirmed Problem Internal derangement of left knee (17760299445276734 ) 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) Active confirmed Vital Signs Height-cm 175.26 cm 02/18/2025 Weight-kg 103.42 kg 02/18/2025 Height 69 in 02/18/2025 Weight 228 lbs 02/18/2025 BMI 33.67 kg/m2 02/18/2025 Encounters Encounter Location Date Provider Diagnosis [facility] [address] [place] [address] 02/18/2025 Lazaro Amor Left knee pain, unspecified [...] End Date Medicare Part B [address] [address] [place] [address] [id number] TIANNA OLIVERA Self - patient is the insured [facility] [address] [place] [address] [id number] TIANNA OLIVERA Self - patient is the insured Medical (General) History Medical History History ICD Code Diabetes Surgical History Surgery Date(Month/Year) skin biopsy Hospitalization History 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
== END 2025-06-17 11:41 | disposition home or self-care (01) ==
LOC: HO.HNS 11:23
PROVIDERS: PCP Student in an Organized Health Care Education/Training Program; Visit Provider Physician Assistant
DX: Z98.890 Other specified postprocedural states (principal)
CPT/HCPCS: 99024

== ENCOUNTER → 2025-06-17 11:23 | Outpatient (BNVA) | payer MEDICARE, OTHER, SELFPAY | PROVIDERS: PCP Student in an Organized Health Care Education/Training Program; Visit Provider Physician Assistant | DX: M54.50 Low back pain, unspecified (principal); Z98.890 Other specified postprocedural states | CPT/HCPCS: 99212 ==